=== PATIENT | male | born 1935 | race Caucasian/White ===

== ENCOUNTER 2023-03-24 10:14 | Outpatient (OUT) | payer MEDICARE, SELFPAY | END 2023-03-24 10:15 | LOC: CRPH3 10:14 → WC 10:24 | PROVIDERS: PCP Podiatrist Foot & Ankle Surgery; Visit Provider Podiatrist Foot & Ankle Surgery | DX: E11.621 Type 2 diabetes mellitus with foot ulcer (principal); L97.412 Non-pressure chronic ulcer of right heel and midfoot with fat layer exposed | CPT/HCPCS: 11042 ==

== ENCOUNTER 2023-04-21 10:15 | Outpatient (OUT) | payer MEDICARE, SELFPAY | END 2023-04-21 10:16 | disposition home or self-care (01) | LOC: WC 10:15 | PROVIDERS: PCP Podiatrist Foot & Ankle Surgery; Visit Provider Podiatrist Foot & Ankle Surgery | DX: E11.621 Type 2 diabetes mellitus with foot ulcer (principal); L97.412 Non-pressure chronic ulcer of right heel and midfoot with fat layer exposed | CPT/HCPCS: 11042 ==

== ENCOUNTER 2023-05-19 10:19 | Outpatient (OUT) | payer MEDICARE, SELFPAY | END 2023-05-19 10:20 | disposition home or self-care (01) | LOC: WC 10:19 | PROVIDERS: PCP Podiatrist Foot & Ankle Surgery; Visit Provider Podiatrist Foot & Ankle Surgery | DX: E11.621 Type 2 diabetes mellitus with foot ulcer (principal); L97.412 Non-pressure chronic ulcer of right heel and midfoot with fat layer exposed | CPT/HCPCS: 11042 ==

== ENCOUNTER 2023-06-23 10:18 | Outpatient (OUT) | payer MEDICARE, SELFPAY | END 2023-06-23 10:19 | disposition home or self-care (01) | LOC: WC 10:18 | PROVIDERS: PCP Podiatrist Foot & Ankle Surgery; Visit Provider Podiatrist Foot & Ankle Surgery | DX: E11.621 Type 2 diabetes mellitus with foot ulcer (principal); L97.412 Non-pressure chronic ulcer of right heel and midfoot with fat layer exposed | CPT/HCPCS: 11042 ==

== ENCOUNTER 2023-07-12 15:22 | Outpatient (OUT) | payer MEDICARE, SELFPAY | END 2023-07-12 15:23 | disposition home or self-care (01) | LOC: WC 15:23 | PROVIDERS: PCP Podiatrist Foot & Ankle Surgery; Visit Provider Podiatrist Foot & Ankle Surgery | DX: E11.621 Type 2 diabetes mellitus with foot ulcer (principal); L97.412 Non-pressure chronic ulcer of right heel and midfoot with fat layer exposed | CPT/HCPCS: 11042 ==

== ENCOUNTER 2023-08-11 10:54 | Outpatient (OUT) | payer MEDICARE, SELFPAY | END 2023-08-11 10:55 | disposition home or self-care (01) | LOC: WC 10:54 | PROVIDERS: PCP Podiatrist Foot & Ankle Surgery; Visit Provider Podiatrist Foot & Ankle Surgery | DX: E11.621 Type 2 diabetes mellitus with foot ulcer (principal); L97.412 Non-pressure chronic ulcer of right heel and midfoot with fat layer exposed | CPT/HCPCS: 11042; A6213 ==

== ENCOUNTER 2023-09-01 10:19 | Outpatient (OUT) | payer MEDICARE, SELFPAY | END 2023-09-01 10:20 | disposition home or self-care (01) | LOC: WC 10:20 | PROVIDERS: PCP Podiatrist Foot & Ankle Surgery; Visit Provider Podiatrist Foot & Ankle Surgery | DX: E11.621 Type 2 diabetes mellitus with foot ulcer (principal); L97.412 Non-pressure chronic ulcer of right heel and midfoot with fat layer exposed | CPT/HCPCS: 11042 ==

== ENCOUNTER 2023-09-22 10:17 | Outpatient (OUT) | payer MEDICARE, SELFPAY | END 2023-09-22 10:18 | disposition home or self-care (01) | LOC: WC 10:17 | PROVIDERS: PCP Podiatrist Foot & Ankle Surgery; Visit Provider Podiatrist Foot & Ankle Surgery | DX: E11.621 Type 2 diabetes mellitus with foot ulcer (principal); L97.412 Non-pressure chronic ulcer of right heel and midfoot with fat layer exposed | CPT/HCPCS: 11042; A6213 ==

== ENCOUNTER 2023-10-27 10:12 | Outpatient (OUT) | payer MEDICARE, SELFPAY ==
--- OUTSIDE RECORDS SUMMARY | 2023-10-27 10:16 | XMS_ITS | CCD ---
Author Name Unknown Address [address] [place] [address] Organization [facility] Care Team Providers Care Harness Cleaner Name Role Phone MD Blake Millard Attending Provider [phone] NO FAMILY, PHYSICIAN Primary Care Provider Unava ilable Blake Millard Unavailable Raven Cheng Unavailable CORDERO ., DR MARIXA Lewis Primary Care Unavailable HIGHLANDER, PETER D Attending Unavailable HIGHLANDER, PETER D Admitting Unavailable CORDERO ., DR MARIXA Lewis Primary Care Unavailable HIGHLANDER, PETER Elida Attending Unavailable HIGHLANDER, PETER D Admitting Unavailable SARAHER, DR DESMOND Zheng Consulting Unavailable CORDERO ., DR MARIXA Lewis Primary Care Unavailable HIGHLANDER, PETER D Attending Unavailable HIGHLANDER, PETER D Admitting Unavailable HIGHLANDER, PETER D Consulting Unavailable CORDERO ., DR MARIXA Lewis Primary Care Unavailable HIGHLANDER, PETER Elida Attending Unavailable HIGHLANDER, PETER D Admitting Unavailable CORDERO ., DR MARIXA Lewis Primary Care Unavailable HIGHLANDER, PETER D Attending Unavailable HIGHLANDER, PETER D Admitting Unavailable CORDERO ., DR MARIXA Lewis Primary Care Unavailable HIGHLANDERTEJAS Attending Unavailable HIGHLANDER, PETER D Admitting Unavailable WEST, DR MIRIAM Sinclair Consulting Unavailable CORDERO ., DR MARIXA Lewis Primary Care Unavailable HIGHLANDER, PETER D Attending Unavailable HIGHLANDER, PETER D Admitting Unavailable HIGHLANDER, PETER D Consulting Unavailable CORDERO ., DR MARIXA Lewis Primary Care Unavailable HIGHLANDER, PETER D Attending Unavailable HIGHLANDER, PETER D Admitting Unavailable CORDERO ., DR MARIXA Lewis Primary Care Unavailable HIGHLANDER, PETER D Attending Unavailable HIGHLANDER, PETER D Admitting Unavailable CORDERO ., DR MARIXA Lewis Primary Care Unavailable HIGHLANDER, PETER D Attending Unavailable HIGHLANDER, PETER D Admitting Unavailable CORDERO ., DR MARIXA Lewis Primary Care Unavailable RADHAANDER PETER Elida Attending Unavailable HIGHLANDER, PETER D Admitting Unavailable CORDERO ., DR MARIXA Lewis Primary Care Unavailable HIGHLANDER, PETER Elida Attending Unavailable TEJAS JOLLEY Admitting Unavailable CORDERO ., DR MARIXA Lewis Primary Care Unavailable TEJAS JOLLEY Attending Unavailable TEJAS JOLLEY Admitting Unavailable CORDERO ., DR MARIXA Lewis Primary Care Unavailable TEJAS JOLLEY Attending Unavailable TEJAS JOLLEY Admitting Unavailable CORDERO ., DR MARIXA Lewis Primary Care Unavailable TEJAS JOLLEY Attending Unavailable TEJAS JOLLEY Admitting Unavailable CORDERO ., DR MARIXA Lewis Primary Care Unavailable TEJAS JOLLEY Attending Unavailable TEJAS JOLLEY Admitting Unavailable Allergies Allergy Classification Reported Allergen(s) Allergy Type Date of Onset Reaction(s) Facility (1 source) Sulfamethoxazole / Trimethoprim Drug Allergy 2 [facility] Repository Medications Current Medications Medication Drug Class(es) Dates Sig (Normalized) Sig (Original) amLODIPine (4 sources) Dihydropyridine Calcium Channel Len amLODIPine Besylate Active Ascorbic Acid (4 sources) Vitamin C Vitamin C Active Aspirin (8 sources) Platelet Aggregation Inhibitor, Nonsteroidal Anti-inflammatory Drug Baby Aspirin Acti ve take 1 tablet by mouth once kay y Aspirin 325 mg 325 mg one tab orally daily Not-Taking atorvastatin 10 mg oral tablet (4 sources) HMG-CoA Reductase Inhibitor take 1 tablet by mouth every twenty-four hours Atorvastatin Calcium 10 MG 1 tablet Orally Once a day for 30 day(s) Active canagliflozin (4 sources) Sodium-Glucose Cotransporter 2 Inhibitor Invokana Active clopidogrel 75 mg oral tablet (4 sources) P2Y12 Platelet Inhibitor take 1 tablet by mouth every twenty-four hours Clopidogrel Bisulfate 75 MG 1 tablet Orally Once a day for 30 day(s) Active ferrous sulfate (4 sources) Ferrous Sulfate Active glyBURIDE (4 sources) Sulfonylurea glyBURIDE Active insulin detemir (4 sources) Insulin Analog Levemir Active Magnesium (4 sources) Magnesium Active Melatonin (4 sources) Melatonin Active Memantine (3 sources) T-gcrnlx-Q-aspartate Receptor Antagonist Memantine HCl ER Active Omeprazole (4 sources) Proton Pump Inhibitor Omeprazole Active POLYETHYLENE GLYCOL 3350 (4 sources) Osmotic Laxative MiraLax Active quinapril 10 mg oral tablet (4 sources) Angiotensin Converting Enzyme Inhibitor take 1 tablet by mouth every twenty-four hours Quinapril HCl 10 MG 1 tablet Orally Once a day for 30 day(s) Active take 1 tablet by baljinder th every twenty-four hours Quinapril HCl 20 MG 1 tablet Orally Once a day for 30 day(s) Active Sucralfate (4 sources) Aluminum Complex Sucralfate Acti ve Zinc (4 sources) Zinc Active Completed/Discontinued Medications Medication Drug Class(es) Dates Sig (Normalized) Sig (Original) Doxycycline (4 sources) Tetracycline-class Drug Doxycycl ine Not-Taking Doxycycline Acti ve Fish Oils (4 sources) take 1 capsule by mouth once daily Fish Oil 1000 MG 1 capsule Orally Once a day for 30 day(s) Not-Taking metFORMIN (4 sources) Biguanide metFORMIN HCl Not-Taking Robaxin-750 750 MG (4 sources) Start: 03-11-2016 take 1 tablet by mouth every four hours Robaxin-750 750 MG 1 tablet Orally every 4 hrs for 10 days February, Not-Taking SITagliptin (4 sources) Dipeptidyl Peptidase 4 Inhibitor Januvia Not-Taking Problems Active Problems Problem Classification Problem Date Documented Date Episodic/Chronic Chronic ulcer of skin (5 sources) 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; Translations: [Non-pressure chronic ulcer of right heel and midfoot limited to breakdown of skin] Onset: 2 Chronic Congestive heart failure; nonhypertensive (1 source) Heart failure, unspecified; Translations: [HEART FAILURE UNSPECIFIED] Onset: 3 Chronic Diabetes mellitus with complications (11 sources) Type 2 diabetes mellitus with foot ulcer; Translations: [Type 2 diabetes mellitus with hyperglycemia] Onset: 3 Chronic Disorders of lipid metabolism (1 source) Pure hypercholesterolemia, unspecified; Translations: [PURE HYPERCHOLESTEROLEMIA UNSPEC] Onset: 3 Chronic Hypertension with complications and secondary hypertension (1 source) Hypertensive heart disease with heart failure; Translations: [HTN HEART DISEASE W/HEART FAIL] Onset: 3 Chronic Late effects of cerebrovascular disease (1 source) Other sequelae following unspecified cerebrovascular disease; Translations: [OTH SEQUELAE UNS CEREBROVASCULAR DZ] Onset: 3 Chronic Other diseases of veins and lymphatics (2 sources) 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 Onset: 2 Resolved: 2 Chronic Other diseases of veins and lymphatics (1 source) 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; Translations: [CHRON VENOUS HTN W/ULCER RT LW EXT] Onset: 3 Chronic Other diseases of veins and lymphatics (2 sources) Venous insufficiency of leg; Translations: [Venous insufficiency (chronic) (peripheral)] Episodic Other diseases of veins and lymphatics (2 sources) Venous insufficiency (chronic) (peripheral) Onset: 2 Resolved: 2 Episodic Other skin disorders (1 source) Nail dystrophy; Translations: [NAIL DYSTROPHY] Onset: 3 Episodic Peripheral and visceral atherosclerosis (1 source) Peripheral vascular disease, unspecified; Translations: [PERIPHERAL VASCULAR DISEASE UNS] Onset: 3 Chronic Residual codes; unclassified (2 sources) Localized edema; Translations: [LOCALIZED EDEMA] Onset: 2 Resolved: 2 Episodic Skin and subcutaneous tissue infections (4 sources) Cellulitis and abscess of lower leg; Translations: [Abscess of leg] Episodic Past or Other Problems Problem Classification Problem Date Documented Da te Episodic/Chronic Other non-traumatic joint disorders (4 sources) Pain in right ankle and joints of right foot; Translations: [PAIN IN RIGHT ANKLE] Onset: 07-22-2022 Episodic Results Test Name Value Interpretation Reference Range Facil ity US venous duplex LE BIon US venous duplex LE [facility] [place] [address] [place] [address] Ultrasound Report Signed Patient: Monse Uribe MR#: [id number] 39 : 1935 Acct:[id number] Age/Sex: 86 / M ADM Date: 02/21/22 Loc: [facility] Room: Type: [facility] Attending Dr: Blake Millard MD Ordering Provider: Blake Millard MD Date of Service: 02/21/22 US/US venous duplex LE BI: VVS PAIN AND SWELLING Copies to: Blake Millard MD BILATERAL LOWER EXTREMITY VENOUS DUPLEX INDICATION: Symptomatic varicose veins with leg swelling and pain PROCEDURE: Color-flow duplex scanning is used to interrogate the deep venous system of the right and left lower extremities. The common femoral vein, femoral vein and popliteal vein show good compressibility with normal proximal and distal augmentation. The calf veins are compressible. US/US venous duplex LE BI IMPRESSION: NO EVIDENCE FOR DEEP VEIN THROMBOSIS OR PROXIMAL SUPERFICIAL THROMBOPHLEBITIS IN THE RIGHT OR LEFT LOWER EXTREMITY. Patient was not able to complete Valsalva maneuver. Therefore reflux could not be evaluated. Greater saphenous vein was patent bilaterally from the groin to the ankle. Impression dictated by: Tigre Dorsey MD02/23/2022 1:03 PM Dictation Location: [place] [address] Tech: Sophia Thomas Transcribed By: [facility] 02/23/22 1303 Dictated By: Tigre Dorsey MD 02/23/22 1302 Signed By: 02/23/22 1303 [facility] Vital Signs Date Time Vital Sign Value Performing Clinician Facility 05-23-2022 12:30-0400 Body height 187.96 cm Raven Orantesrenetta Other [facility] Other 05-23-2022 12:30-0400 Body mass index (BMI) [Ratio] 26.32 kg/m2 Raven Orantesrenetta Other [facility] Other 05-23-2022 12:30-0400 Body temperature 97 [degF] Raven Cheng Other [facility] Other 05-23-2022 12:30-0400 Body weight 92.99 kg Raven Cheng Other [facility] Other 05-23-2022 12:30-0400 Diastolic blood pressure 46 mm[Hg] Raven Orantesrenetta Other [facility] Other 05-23-2022 12:30-0400 SaO2% (BldA) [Mass fraction] 97 % Raven Orantesrenetta Other [facility] Other 05-23-2022 12:30-0400 Systolic blood pressure 110 mm[Hg] Raven Rutrenetta Other [facility] Other 02-21-2022 12:45-0400 Body height 187.96 cm Raven Cheng Other [facility] Other 02-21-2022 12:45-0400 Body temperature 97.2 [degF] Raven Cheng Other [facility] Other 02-21-2022 12:45-0400 Diastolic blood pressure 60 mm[Hg] Raven Cheng Other [facility] Other 02-21-2022 12:45-0400 SaO2% (BldA) [Mass fraction] 99 % Raven Cheng Other [facility] Other 02-21-2022 12:45-0400 Systolic blood pressure 138 mm[Hg] Raven Cheng Other [facility] Other 12-28-2021 11:45-0400 Body height 187.96 cm Blake Millard Other [facility] Other 12-28-2021 11:45-0400 Body mass index (BMI) [Ratio] 26.32 kg/m2 Blake Millard Other [facility] Other 12-28-2021 11:45-0400 Body temperature 96.6 [degF] Blake Millard Other [facility] Other 12-28-2021 11:45-0400 Body weight 92.99 kg Blake Millard Other [facility] Other 12-28-2021 11:45-0400 Diastolic blood pressure 70 mm[Hg] Blake Millard Other [facility] Other 12-28-2021 11:45-0400 SaO2% (BldA) [Mass fraction] 97 % Blake Millard Other [facility] Other 12-28-2021 11:45-0400 Systolic blood pressure 118 mm[Hg] Blake Millard Other [facility] Other Encounters Encounter Date Encounter Type Care Provider Facility Start: 02-24-2023 End: 02-25-[address] MARIXA CORDERO . Facility:[facility] Start: 02-03-2023 End: 02-04-[address] MARIXA CORDERO . Facility:[facility] Start: 12-30-2022 End: 12-31-[address] MARIXA CORDERO . Facility:[facility] Start: 12-09-2022 End: 12-10-[address] MARIXA CORDERO . Facility:[facility] Start: 11-18-2022 End: 11-19-[address] MARIXA CORDERO . Facility:[facility] Start: 10-25-2022 End: 10-26-[address] MARIXA CORDERO . Facility:[facility] Start: 10-03-2022 End: 10-04-[address] MARIXA CORDERO . Facility:[facility] Start: 09-16-2022 End: 09-17-[address] MARIXA CORDERO . Facility:[facility] Start: 08-19-2022 End: 08-20-[address] MARIXA CORDERO . Facility:[facility] Start: 07-22-2022 End: 07-23-[address] MIRIAM OTERO Facility:[facility] Start: 06-24-2022 End: 06-25-[address] MARIXA CORDERO . Facility:[facility] Start: 05-23-2022 End: 05-23-2022 ambulatory Raven Cheng Other [facility] Other Start: 05-23-2022 Office outpatient vi sit 25 minutes Raven Cheng [facility] Surgery Start: 05-12-2022 End: 05-13-[address] MARIXA CORDERO . Facility:[facility] Start: 04-22-2022 End: 04-23-[address] MARIXA CORDERO . Facility:[facility] Start: 04-01-2022 End: 04-02-[address] DESMOND BOSTON Facility:[facility] Start: 03-21-2022 End: 03-22-[address] MARIXA CORDERO . Facility:[facility] Start: 03-04-2022 End: 03-05-[address] MARIXA CORDERO . Facility:[facility] Start: 02-21-2022 End: 02-21-2022 ambulatory Raven Cheng Other [facility] Other Start: 02-21-2022 Follow-up encounter Raven Sands [facility] Start: 02-21-2022 End: 02-21-2022 Patient encounter procedure MD Blake Millard Work Phone: [facility] Start: 12-28-2021 End: 12-28-2021 ambulatory Blake Millard Other [facility] Other Start: 12-28-2021 Office outpatient ne w 45 minutes Blake Millard [facility] Vascular Surgery Plan of Treatment Date Care Activity Detail Author Start: 02-21-2022 Duplex scan of lower limb veins US venous duplex LE BI [facility] Payers Date Payer Category Payer Medicare [id number] 1957 Unknown [id number] 1935 Unknown [id number] 2.16.84 [id number] 1935 Unknown [id number] 2.16.84 0.1.358247.3.579.2.593 1935 Unknown [id number] 2.16.84 0.1.315909.3.579.2.593 1935 Unknown [id number] 2.16.84 0.1.563591.3.579.2.593 1935 Unknown [id number] 2.16.84 0.1.135351.3.579.2.593 1937 Unknown [id number] 2.16.84 0.1.416237.3.579.2.593 1935 Unknown [id number] 2.16.84 0.1.966433.3.579.2.593 1935 Unknown [id number] 2.16.84 0.1.583093.3.579.2.593 1935 Unknown [id number] 2.16.84 0.1.282420.3.579.2.593 1935 Unknown [id number] 2.16.84 0.1.814297.3.579.2.593 1935 Unknown [id number] 2.16.84 0.1.218716.3.579.2.593 1935 Unknown [id number] 2.16.84 0.1.580071.3.579.2.593 1935 Unknown [id number] 2.16.84 0.1.072671.3.579.2.593 1937 Unknown [id number] 2.16.84 0.1.872490.3.579.2.593 1935 Unknown [id number] 2.16.84 0.1.967505.3.579.2.593 1935 Unknown [id number] 2.16.84 0.1.215416.3.579.2.593 Self-pay Self Pay [id number] Social History Date Type Detail Facility Tobacco smoking status NHIS Unknown if ever smoked [facility] Other Start: 1935 Sex Assigned At Male F [facility] Sex Assigned At Sex Assigned At Bir th [facility] Other Clinical Note 07-22-2022 Note Date & Type Note Facility 07-22-2022 Note PROCEDURE: XR FOOT R T MIN 3 VIEWS COMPARISON: 04/01/2022 HISTORY: Pain FINDINGS: BONES:No acute fracture or dislocation. Moderate degenerative changes with pes planus. Moderate plantar enthesopathic spurring of the calcaneus. Mild permeative pattern of the bones suggests osteopenia SOFT TISSUES:Soft tissue injury dorsal hindfoot EFFUSION:None visible. OTHER: Negative. IMPRESSION: Soft tissue injury No plain film evidence of osteomyelitis Electronically authenticated by: MIRIAM OTERO Date: 2022-07-22 11:18 [facility] Evaluation note 05-23-2022 Note Date & Type Note Facility 05-23-2022 Evaluation note Encounter Date Diagnosis Assessment Notes May, Chronic venous insufficiency of lower extremity (ICD-10 - I87.2) May, Other Chronic venous insufficiency This patient does not have an indication for intervention at this time and is not a good surgical candidate in the absence of significant ulceration. His family is aware and they are also aware of conservative treatment measures including elevation, compression, and skin care. I will have him come back on an as-needed basis should he deteriorate in any way. [facility] Other Clinical Note 04-01-2022 Note Date & Type Note Facility 04-01-2022 Note PROCEDURE: XR FOOT R T MIN 3 VIEWS HISTORY: Pain in right foot ; first metatarsophalangeal joint plantar wound COMPARISON: XR foot right 03/01/2021 FINDINGS: BONES:Complete loss of the plantar arch. Mild degenerative changes the midfoot and ankle joint. No fracture or bone lesion. SOFT TISSUES:Mild distal dorsal soft tissue swelling. EFFUSION:None visible. OTHER: Negative. IMPRESSION: 1. Pes planus. 2. No appreciable acute bone abnormality or evidence of osteomyelitis. 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 Patient was unable to understand instructions for Valsalva therefore unfortunately we are unable to identify any areas of valvular incompetence. He does not currently have any open sores or ulcerations.. He has hemosiderin deposition in the gaiter distribution bilaterally and He does have some blister formation to the left daugherty region but currently no open areas. At this point in time, we will continue conservative therapy efforts with graded compression stockings, leg elevation, and good skin care moisturizer therapy. Family was given instructions and paperwork filled out for his skilled facility. He was given Rx for compression stockings. We will continue to follow him along and see him again in a couple of months to monitor progress. They know to call us in the meantime if any issues present or any wounds appear. They verbalized understanding, agrees this plan, deny any questions. 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 With good skin care, elevation, and compression he may do fairly well. I will bring him back for a full functional venous duplex examination to assess his current venous anatomy and whether or not there any areas of valvular incompetence that might be addressed to improve his legs particularly on the right where he had ulceration. We will see him back once that study is accomplished. [facility] Other Evaluation note Note Date & Type Note Facility Evaluation note No assessment information availa [facility] Work Phone: History general Narrative - Reported Note Date & Type Note Facility History general Narrative - Reported Type Medical History diabetes mallitus Medical History hyperlipidemia Medical History Hypertension Medical History History of deep vein thrombosis Surgical History skin graft Surgical History cholecystectomy Surgical History colonoscopy Surgical History hernia repair Surgical History cataract removal left Hospitalization History see above [facility] Other Chief Complaint and Reason for Visit Chief Complaint varicose vein w/ulce r Advance Directives No Advanced Directives Records Found Advance Directive Response Recorded Date/ Time Advance Directives No February 21, 2022 12:42pm Summary Purpose Family History No Family History Records FoundNo Family History Records Found Additional Source Comments Care Teams (unrecognized sec tion and content) Team Status: Inactive Member Role Status Dates Blake Millard MD Attending Provider Active PHYSICIAN NO FAMILY Primary Care Provider Active Team Status: Active Member Role Status Dates PHYSICIAN NO FAMILY Primary Care Provider Active Goals (unrecognized section and content) Goals may be documented in a n alternate sectionNo InformationNo InformationNo InformationNo Information (unrecognized sect ion and content) No Status Records FoundNo Status Records Found INFORMATION SOURCE (unrecogn ized section and content) DATE CREATED AUTHOR 03/11/2022 [facility] DATE CREATED AUTHOR AUTHOR'S ORGANIZ ATION 02/25/2023 [facility] REASON FOR VISIT (unrecogniz ed section and content) HOSP F/U, Swollen legsFOLLOW UP; BL FF VENOUS 10:303 MONTH FOLLOW UP, Venous insufficiency3 MONTH FOLLOW UP, Venous insufficiency FOR RECORDS PERTAINING TO PATIENTS WHO ARE OR HAVE BEEN ENROLLED IN A CHEMICAL DEPENDENCY/SUBSTANCEABUSE PROGRAM, SOME INFORMATION MAY BE OMITTED. This clinical summary was aggregated from multiple sources. Caution should be exercised in using it in the provision of clinical care. This summary normalizes information from multiple sources, and as a consequence, information in this document may materially change the coding, format and clinical context of patient data. In addition, data may be omitted in some cases. CLINICAL DECISIONS SHOULD BE BASED ON THE PRIMARY CLINICAL RECORDS. [employer] provides no warranty or guarantee of the accuracy or completeness of information in this document.
== END 2023-10-27 10:13 | disposition home or self-care (01) ==
LOC: WC 10:12
PROVIDERS: PCP Podiatrist Foot & Ankle Surgery; Visit Provider Podiatrist Foot & Ankle Surgery
DX: E11.621 Type 2 diabetes mellitus with foot ulcer (principal); L97.412 Non-pressure chronic ulcer of right heel and midfoot with fat layer exposed; E11.65 Type 2 diabetes mellitus with hyperglycemia; L60.3 Nail dystrophy; E11.21 Type 2 diabetes mellitus with diabetic nephropathy
CPT/HCPCS: 11042; 11721

== ENCOUNTER 2023-11-24 11:52 | Outpatient (OUT) | payer MEDICARE, SELFPAY | END 2023-11-24 11:53 | disposition home or self-care (01) | LOC: WC 11:52 | PROVIDERS: PCP Podiatrist Foot & Ankle Surgery; Visit Provider Podiatrist Foot & Ankle Surgery | DX: E11.621 Type 2 diabetes mellitus with foot ulcer (principal); L97.412 Non-pressure chronic ulcer of right heel and midfoot with fat layer exposed | CPT/HCPCS: 11042 ==

== ENCOUNTER 2023-12-08 09:34 | Outpatient (OUT) | payer MEDICARE, SELFPAY ==
--- OUTSIDE RECORDS SUMMARY | 2023-12-08 09:39 | XMS_ITS | CCD ---
Author Name Unknown Address [address] [place] [address] Organization [facility] Care Team Providers Care Automated Manufacturing Instructor Name Role Phone MD Blake Millard Attending Provider [phone] NO FAMILY, PHYSICIAN Primary Care Provider Unava ilable Blake Millard Unavailable Raven Cheng Unavailable CORDERO ., DR MARIXA Lewis Primary Care Unavailable SHOLA, TEJAS Marrero Attending Unavailable HIGHLANDER, PETER D Admitting Unavailable CORDERO ., DR MARIXA Lewis Primary Care Unavailable HIGHLANDER, TEJAS Marrero Attending Unavailable HIGHLANDER, PETER D Admitting Unavailable SARAHER, DR DESMOND Zheng Consulting Unavailable CORDERO ., DR MARIXA Lewis Primary Care Unavailable HIGHLANDER, PETER Elida Attending Unavailable HIGHLANDER, PETER D Admitting Unavailable HIGHLANDER, PETER Elida Consulting Unavailable CORDERO ., DR MARIXA Lewis [...] ., DR MARIXA Lewis Primary Care Unavailable RADHAANDER, PETER Elida Attending Unavailable HIGHLANDER, PETER D Admitting Unavailable CORDERO ., DR MARIXA Lewis Primary Care Unavailable HIGHLANDER, PETER Elida Attending Unavailable HIGHLANDER, PETER D Admitting Unavailable CORDERO ., DR MARIXA Lewis Primary Care Unavailable RADHAANDERTEJAS Attending Unavailable HIGHLANDER, PETER D Admitting Unavailable CORDERO ., DR MARIXA Lewis Primary Care Unavailable HIGHLANDER, TEJAS Marrero Attending Unavailable HIGHLANDER, PETER D Admitting Unavailable CORDERO ., DR MARIXA Lewis Primary Care Unavailable TEJAS JOLLEY Attending Unavailable TEJAS JOLLEY Admitting Unavailable CORDERO ., DR MARIXA Lewis Primary Care Unavailable TEJAS JOLLEY Attending Unavailable TEAJS JOLLEY Admitting Unavailable CORDERO ., DR MARIXA Lewis Primary Care Unavailable TEJAS JOLLEY Attending Unavailable TEJAS JOLLEY Admitting Unavailable CORDERO ., DR MARIXA Lewis Primary Care Unavailable TEJAS JOLLEY Attending Unavailable TEJAS JOLLEY Admitting Unavailable CORDERO ., DR MARIXA Lewis Primary Care Unavailable TEJAS JOLLEY Attending Unavailable TEJAS JOLLEY Admitting Unavailable Tosha Aguirre MD Unavailable Tosha Aguirre MD Primary Care Provider Courtney COPE, Rosina Unavailable Unavailable Dinora Sherwood Unavailable Unavailable Allergies Allergy Classification Reported Allergen(s) Allergy Type Date of Onset Reaction(s) Facility (1 source) Sulfamethoxazole / Trimethoprim Drug Allergy 2 [facility] Repository (2 sources) Sulfamethoxazole / Trimethoprim Drug Allergy 2 [facility] Medications Current Medications Medication Drug Class(es) Dates Sig (Normalized) Sig (Original) acetaminophen 500 mg oral tablet (2 sources) acetaminophen (Tylenol) 500 MG tablet every 8 (eight) hours 0 Active amLODIPine (4 sources) Dihydropyridine Calcium Channel Len amLODIPine Besylate Active ascorbic acid 250 mg oral tablet (6 sources) Vitamin C take 1 tablet by mouth twice daily ascorbic acid (Vitamin C) 250 MG tablet 1 tablet Orally Twice a day 0 Active Vitamin C Active aspirin 81 mg delayed release oral tablet (10 sources) Platelet Aggregation Inhibitor, Nonsteroidal Anti-inflammatory Drug take 1 tablet by mouth in the morning aspirin 81 MG EC tablet Take 1 tablet by mouth in the morning. 0 Active Baby Aspirin Act conrad take 1 tablet by mouth once kay y Aspirin 325 mg 325 mg one tab orally daily Not-Taking atorvastatin 10 mg oral tablet (6 sources) HMG-CoA Reductase Inhibitor atorvastatin (Lipitor) 10 MG tablet 1 (one) time each day at the same time 0 Active canagliflozin 100 mg oral tablet (6 sources) Sodium-Glucose Cotransporter 2 Inhibitor take 1 tablet by mouth in the morning Invokana 100 MG Take 1 tablet by mouth in the morning. 0 Active Invokana Active clopidogrel 75 mg oral tablet (6 sources) P2Y12 Platelet Inhibitor take 1 tablet by mouth in the morning clopidogrel (Plavix) 75 MG tablet Take 1 tablet by mouth in the morning. 0 Active collagenase 0.25 unt/mg topical ointment (2 sources) Collagen-specific Enzyme Start: 09-22-20 23 Santyl 250 UNIT/GM ointment Per wound clinic 0 09/22/2023 Active ferrous sulfate (4 sources) Ferrous Sulfate Active fluticasone propionate 0.05 mg/actuat metered dose nasal spray (2 sources) Corticosteroid Start: 01-15-20 23 fluticasone (Flonase) 50 MCG/ACT nasal spray furosemide 40 mg oral tablet (2 sources) Loop Diuretic take 1 tablet by mouth in the morning furosemide (Lasix) 40 MG tablet Take 1 tablet by mouth in the morning. 0 Active glyBURIDE (4 sources) Sulfonylurea glyBURIDE Active 3 ml insulin aspart, human 100 unt/ml pen injector (2 sources) Insulin Analog Start: 09-06-20 NovoLOG FLEXPEN 100 UNIT/ML pen SLIDING SCALE. 141-200 give 2 units. 201-250 give 4 units. 251-300 give 6 units. 301-350 give 8 units. 351-400 give 10 units. Greater than 400 give 12 units and call MD. 0 09/06/2023 Active 3 ml insulin detemir 100 unt/ml pen injector (6 sources) Insulin Analog Levemir FlexTouc h 100 UNIT/ML pen Inject 42 Units under the skin in the morning. 0 Active Levemir Active ammonium lactate 120 mg/ml topical lotion (2 sources) ammonium lactate (Lac-Hydrin) 12 % lotion 1 application every 12 (twelve) hours 0 Active Magnesium (4 sources) Magnesium Active magnesium hydroxide 80 mg/ml oral suspension (2 sources) magnesium hydrox ry (Milk of Magnesia) 400 MG/5ML suspension 5 ml at least 4 hours between doses as needed Orally Once a day 0 Active Melatonin (4 sources) Melatonin Active 24 hr memantine hydrochlorid e 28 mg extended release oral capsule (5 sources) I-hmruqp-N-aspartate Receptor Antagonist Memantine HCl ER 28 MG capsule sustained-release 24 hr 1 capsule at bedtime 0 Active Memantine HCl ER Active omeprazole 40 mg delayed release oral capsule (6 sources) Proton Pump Inhibitor take 1 capsule by mouth once daily omeprazole (PriLOSEC) [address] capsule Take 1 capsule every day by oral route for 30 days. 0 Active Omeprazole Activ e Pollen Extracts (PROSTAT PO) (2 sources) take 30 mL by mouth in the morning Pollen Extracts (PROSTAT PO) Take 30 mL by mouth in the morning and 30 mL before bedtime. 0 Active polyethylene glycol 3350 97766 mg powder for oral solution (6 sources) Osmotic Laxative polyethylene gl ycol, PEG, 3350 (MiraLax) 17 GM/SCOOP powder as directed Orally 0 Active MiraLax Active quinapril 10 mg oral tablet (4 sources) Angiotensin Converting Enzyme Inhibitor take 1 tablet by mouth every twenty-four hours Quinapril HCl 10 MG 1 tablet Orally Once a day for 30 day(s) Active take 1 tablet by baljinder th every twenty-four hours Quinapril HCl 20 MG 1 tablet Orally Once a day for 30 day(s) Active spironolactone 25 mg oral tablet (2 sources) Aldosterone Antagonist take 0.5 tablet by mouth once daily spironolactone (Aldactone) 25 MG tablet Take 0.5 tablets every day by oral route. 0 Active Sucralfate (4 sources) Aluminum Complex Sucralfate Acti ve triamcinolone acetonide 1 mg/ml topical cream (2 sources) Corticosteroid Start: 023 triamcinolone (Kenalog) 0.1 % cream vitamin b12 1 mg oral tablet (2 sources) Vitamin B12 take 1 tablet by mouth in the morning cyanocobalamin (Vitamin B-12) 1000 MCG tablet Take 1,000 mcg by mouth in the morning. 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; Translations: [Non-pressure chronic ulcer of right heel and midfoot limited to breakdown of skin] Onset: 12-09-2021 05-04-2023 Chronic Conduction disorders (2 sources) Second degree atrioventricular block; Translations: [Atrioventricular block, second degree] Onset: 05-04-2023 05-04-2023 Chronic Congestive heart failure; nonhypertensive (4 sources) Heart failure, unspecified; Translations: [Heart failure] Onset: 12-09-2021 11-08-2023 Chronic Delirium, dementia, and amnestic and other cognitive disorders (6 sources) Old-age; Translations: [Age-related physical debility] Onset: 12-09-2021 05-04-2023 Chronic Diabetes mellitus with complications (20 sources) Type 2 diabetes mellitus with foot ulcer; Translations: [Type 2 diabetes mellitus with hyperglycemia] Onset: 03-24-2022 Chronic Disorders of lipid metabolism (3 sources) Pure hypercholesterolemia, unspecified; Translations: [Hyperlipidemia] Onset: 12-09-2021 05-04-2023 Chronic Diverticulosis and diverticulitis (2 sources) Diverticula of intestine; Translations: [Diverticulosis of intestine, part unspecified, without perforation or abscess without bleeding] Onset: 12-09-2021 05-04-2023 Chronic Esophageal disorders (2 sources) Gastroesophageal reflux disease without esophagitis; Translations: [Gastro-esophageal reflux disease without esophagitis] Onset: 12-09-2021 05-04-2023 Chronic Essential hypertension (5 sources) Essential hypertension; Translations: [Essential (primary) hypertension] Onset: 12-09-2021 05-04-2023 Chronic Genitourinary symptoms and ill-defined conditions (3 sources) Urinary incontinence; Translations: [Unspecified urinary incontinence] Onset: 12-09-2021 05-04-2023 Chronic Hypertension with complications and secondary hypertension (1 source) Hypertensive heart disease with heart failure; Translations: [HTN HEART DISEASE W/HEART FAIL] Onset: 12-22-2022 Chronic Late effects of cerebrovascular disease (1 source) Other sequelae following unspecified cerebrovascular disease; Translations: [OTH SEQUELAE UNS CEREBROVASCULAR DZ] Onset: 12-22-2022 Chronic Malaise and fatigue (3 sources) Asthenia; Translations: [Weakness] Onset: 12-09-2021 11-08-2023 Episodic Miscellaneous mental health disorders (2 sources) Dream anxiety disorder; 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] Onset: 05-04-2023 05-04-2023 Chronic Mood disorders (3 sources) Mood disorder; Translations: [Unspecified mood [affective] disorder] Onset: 12-09-2021 05-04-2023 Chronic Nutritional deficiencies (2 sources) Deficiency of macronutrients; Translations: [Unspecified protein-calorie malnutrition] Onset: 12-09-2021 05-04-2023 Chronic Other aftercare (1 source) Long-term current use of anticoagulant; Translations: [intermediate (current) use of anticoagulants] 11-20-2023 Episodic Other diseases of veins and lymphatics (2 sources) 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 Onset: 12-28-2021 Resolved: 02-21-2022 Chronic Other diseases of veins and lymphatics (1 source) 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; Translations: [CHRON VENOUS HTN W/ULCER RT LW EXT] Onset: 12-22-2022 Chronic Other diseases of veins and lymphatics (2 sources) Venous insufficiency of leg; Translations: [Venous insufficiency (chronic) (peripheral)] Episodic Other diseases of veins and lymphatics (2 sources) Venous insufficiency (chronic) (peripheral) Onset: 05-23-2022 Resolved: 05-23-2022 Episodic Other nervous system disorders (2 sources) Cognitive deficit in communication skills; Translations: [Cognitive communication deficit] Onset: 12-09-2021 05-04-2023 Chronic Other nervous system disorders (2 sources) Neuropathy; Translations: [Polyneuropathy, unspecified] Onset: 05-04-2023 05-04-2023 Chronic Other nervous system disorders (2 sources) Polyneuropathy; Translations: [Polyneuropathy, unspecified] Onset: 05-04-2023 05-04-2023 Chronic Other nervous system disorders (3 sources) Abnormal gait; Translations: [Unspecified abnormalities of gait and mobility] Onset: 05-04-2023 05-04-2023 Episodic Other skin disorders (1 source) Nail dystrophy; Translations: [NAIL DYSTROPHY] Onset: 12-22-2022 Episodic Peripheral and visceral atherosclerosis (4 sources) Peripheral vascular disease, unspecified; Translations: [Peripheral vascular disease] Onset: 12-09-2021 11-08-2023 Chronic Residual codes; unclassified (2 sources) Localized edema; Translations: [LOCALIZED EDEMA] Onset: 02-21-2022 Resolved: 02-21-2022 Episodic Past or Other Problems Problem Classification Problem Date Documented Da te Episodic/Chronic Abdominal hernia (2 sources) Hernia of anterior abdominal wall; Translations: [Ventral hernia without obstruction or gangrene] Onset: 2 05-04-2023 Episodic Deficiency and other anemia (2 sources) Anemia; Translations: [Anemia, unspecified] Onset: 2 05-04-2023 Episodic Diabetes mellitus without complication (2 sources) Hyperglycemia; Translations: [Hyperglycemia, unspecified] Onset: 2 Resolved: 4 11-08-2023 Episodic E Codes: Fall (2 sources) Fall; Translations: [Unspecified fall, initial encounter] Onset: 2 Resolved: 3 05-04-2023 Episodic Fluid and electrolyte disorders (2 sources) Acidosis; Translations: [Acidosis] Onset: 2 Resolved: 4 11-08-2023 Episodic Gastrointestinal hemorrhage (2 sources) Gastrointestinal hemorrhage; Translations: [Gastrointestinal hemorrhage, unspecified] Onset: 2 11-17-2023 Episodic Genitourinary symptoms and ill-defined conditions (2 sources) Microscopic hematuria; Translations: [Other microscopic hematuria] Onset: 2 Resolved: 4 11-08-2023 Episodic Nausea and vomiting (2 sources) Nausea and vomiting; Translations: [Nausea with vomiting, unspecified] Onset: 2 Resolved: 4 11-08-2023 Episodic Nutritional deficiencies (2 sources) Vitamin deficiency; Translations: [Vitamin deficiency, unspecified] Onset: 2 05-04-2023 Episodic Open wounds of extremities (2 sources) Open wound of right lower leg; Translations: [Unspecified open wound, right lower leg, subsequent encounter] Onset: 2 11-08-2023 Episodic Other connective tissue disease (2 sources) Muscle weakness; Translations: [Muscle weakness (generalized)] Onset: 2 05-04-2023 Episodic Other diseases of kidney and ureters (2 sources) Disorder of kidney and/or ureter; Translations: [Disorder of kidney and ureter, unspecified] Onset: 2 11-17-2023 Episodic Other diseases of veins and lymphatics (2 sources) Peripheral venous insufficiency; Translations: [Venous insufficiency (chronic) (peripheral)] Onset: 2 05-04-2023 Episodic Other gastrointestinal disorders (2 sources) Constipation; Translations: [Constipation, unspecified] Onset: 3 05-04-2023 Episodic Other injuries and conditions due to external causes (2 sources) History of fall; Translations: [History of falling] Onset: 2 05-04-2023 Episodic Other nervous system disorders (2 sources) Finding related to ability to move; Translations: [Other abnormalities of gait and mobility] Onset: 2 11-17-2023 Episodic Other non-traumatic joint disorders (4 sources) Pain in right ankle and joints of right foot; Translations: [PAIN IN RIGHT ANKLE] Onset: 2 Episodic Other skin disorders (2 sources) Disorder of pigmentation; Translations: [Disorder of pigmentation, unspecified] Onset: 2 11-17-2023 Episodic Pancreatic disorders (not diabetes) (2 sources) 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; Translations: [Other specified diseases of pancreas] Onset: 2 05-04-2023 Episodic Residual codes; unclassified (2 sources) Restlessness and agitation; Translations: [Restlessness and agitation] Onset: 2 Resolved: 4 11-08-2023 Chronic Residual codes; unclassified (2 sources) Insomnia; Translations: [Insomnia, unspecified] Onset: 3 05-04-2023 Episodic Residual codes; unclassified (2 sources) Altered mental status; Translations: [Altered mental status, unspecified] Onset: 2 11-08-2023 Episodic Residual codes; unclassified (2 sources) Edema; Translations: [Edema, unspecified] Onset: 2 Resolved: 4 11-08-2023 Episodic Septicemia (except in labor) (2 sources) Sepsis; Translations: [Sepsis, unspecified organism] Onset: 2 Resolved: 4 11-08-2023 Episodic Skin and subcutaneous tissue infections (6 sources) Cellulitis and abscess of lower leg; Translations: [Abscess of leg] Onset: 2 Resolved: 3 05-04-2023 Episodic Spondylosis; intervertebral disc disorders; other back problems (2 sources) Spinal stenosis; Translations: [Spinal stenosis, site unspecified] Onset: 2 05-04-2023 Episodic Results Test Name Value Interpretation Reference Range Facil ity US venous duplex LE BIon US venous duplex LE [facility] [address] Ultrasound Report Signed Patient: Tayo Uribe MR#: [id number] 39 : 1935 Acct:[id number] Age/Sex: 86 / M ADM Date: 02/21/22 Loc: [facility] Room: Type: [facility] Attending Dr: Blake Millard MD Ordering Provider: [...] Tigre Dorsey MD02/23/2022 1:03 PM [facility] Tech: Sophia Thomas Transcribed By: [facility] 02/23/22 1303 Dictated By: Tigre Dorsey MD 02/23/22 1302 Signed By: 02/23/22 1303 [facility] Vital Signs Date Time Vital Sign Value Performing Clinician Facility 11-20-2023 09:40-0500 Body weight 97.43 kg Tosha Aguirre MD Work Phone: [facility] 11-20-2023 09:40-0500 Diastolic blood pressure 58 mm[Hg] Tosha Aguirre MD Work Phone: [facility] 11-20-2023 09:40-0500 Heart rate 60 /min Tohsa Aguirre MD Work Phone: [facility] 11-20-2023 09:40-0500 Systolic blood pressure 126 mm[Hg] Tosha Aguirre MD Work Phone: [facility] 05-23-2022 12:30-0400 Body height 187.96 cm Raven Cheng Other [facility] Other 05-23-2022 12:30-0400 Body mass index (BMI) [Ratio] 26.32 kg/m2 Raven Cheng Other [facility] Other 05-23-2022 12:30-0400 Body temperature 97 [degF] Raven Cheng Other [facility] Other 05-23-2022 12:30-0400 Body weight 92.99 kg Raven Cheng Other [facility] Other 05-23-2022 12:30-0400 Diastolic blood pressure 46 mm[Hg] Raven Oranteso Other [facility] Other 05-23-2022 12:30-0400 SaO2% (BldA) [Mass fraction] 97 % Raven Oranteso Other [facility] Other 05-23-2022 12:30-0400 Systolic blood pressure 110 mm[Hg] Raven Oranteso Other [facility] Other 02-21-2022 12:45-0400 Body height 187.96 cm Raven Oranteso Other [facility] Other 02-21-2022 12:45-0400 Body temperature 97.2 [degF] Raven Oranteso Other [facility] Other 02-21-2022 12:45-0400 Diastolic blood pressure 60 mm[Hg] Raven Oranteso Other [facility] Other 02-21-2022 12:45-0400 SaO2% (BldA) [Mass fraction] 99 % Raven Oranteso Other [facility] Other 02-21-2022 12:45-0400 Systolic blood pressure 138 mm[Hg] Raven Oranteso Other [facility] Other 12-28-2021 11:45-0400 Body height 187.96 cm Blake Millard Other [facility] Other 12-28-2021 11:45-0400 Body mass index (BMI) [Ratio] 26.32 kg/m2 Blake Millard Other [facility] Other 12-28-2021 11:45-0400 Body temperature 96.6 [degF] Blake Millard Other [facility] Other 12-28-2021 11:45-0400 Body weight 92.99 kg Blake Millard Other [facility] Other 12-28-2021 11:45-0400 Diastolic blood pressure 70 mm[Hg] Blake Millard Other [facility] Other 12-28-2021 11:45-0400 SaO2% (BldA) [Mass fraction] 97 % Blake Millard Other [facility] Other 12-28-2021 11:45-0400 Systolic blood pressure 118 mm[Hg] Blake Millard Other [facility] Other Encounters Encounter Date Encounter Type Care Provider Facility Start: 11-20-2023 [email or web address] ernst MD Work Phone: [facility] Start: 11-20-2023 Latiochrissie ernst MD Work Phone: [facility] Start: 11-20-2023 End: 11-20-2023 Office outpatient visit 25 minutes Tosha Aguirre MD Work Phone: [facility] Comment on above: Type 2 diabetes marbin itus with foot ulcer, with long-term current use of insulin ([facility]) (Primary Dx); Chronic atrial fibrillation, unspecified (I48.20); Unspecified mood [affective] disorder (F39); Other ventricular tachycardia (I47.29); 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 gangrene, with long-term current use of insulin ([facility]); Peripheral vascular disease, unspecified (I73.9); Dementia without behavioral disturbance, psychotic disturbance, mood disturbance, or anxiety, unspecified dementia severity, unspecified dementia type ([facility]); Non-pressure chronic ulcer of other part of right foot with fat layer exposed (L97.512); Heart failure, unspecified HF chronicity, unspecified heart failure type ([facility]); 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; intermediate current use of anticoagulant; Advanced age; Gait disturbance; Essential (primary) hypertension ([facility]); Urinary incontinence, unspecified type; Other cerebral infarction due to occlusion or stenosis of small artery ([facility]); DM type 2 with diabetic peripheral neuropathy ([facility]) Start: 02-24-2023 End: 02-25-[address] MARIXA [...] . Facility:[facility] Start: 05-23-2022 End: 05-23-2022 ambulatory Rvaen Cheng Other [facility] Other Start: 05-23-2022 Office outpatient vi sit 25 minutes Raven Cheng [facility] Start: 05-12-2022 End: 05-13-[address] MARIXA CORDERO . Facility:[facility] Start: 04-22-2022 End: 04-23-[address] MARIXA CORDERO . Facility:[facility] Start: 04-01-2022 End: 04-02-[address] DESMOND BOSTON Facility:[facility] Start: 03-21-2022 End: 03-22-[address] MARIXA CORDERO . Facility:[facility] Start: 03-04-2022 End: 03-05-[address] MARIXA CORDERO . Facility:[facility] Start: 02-21-2022 End: 02-21-2022 ambulatory Raven Cheng Other [facility] Other Start: 02-21-2022 Follow-up encounter [facility] Start: 02-21-2022 End: 02-21-2022 Patient encounter procedure MD Blake Millard Work Phone: [facility] Start: 12-28-2021 End: 12-28-2021 ambulatory Blake Millard Other [facility] Other Start: 12-28-2021 Office outpatient ne w 45 minutes Blake Millard [facility] Plan of Treatment Date Care Activity Detail Author Start: 02-19-2024 End: 02-19-2024 Patient encounter procedure 02/19/2024 10:30 AM EDT Office Visit [facility] [address] [place] [id number] Tosha Aguirre MD [address] [place] [address] [facility] Start: 01-17-2024 Hemoglobin A1c measurement Diabetes: Hemoglobin A1C [facility] Start: 11-20-2023 End: 11-20-2023 Patient encounter procedure 11/20/2023 9:30 AM EST Office Visit [facility] [address] [facility] [place] [address] Tosha Aguirre MD [address] [place] [address] 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 (Primary Dx); 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); Chronic atrial fibrillation, unspecified (I48.20); Atrial fibrillation, unspecified type (CMS/HCC); Unspecified mood [affective] disorder (F39); Other ventricular tachycardia (I47.29); 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 gangrene, with long-term current use of insulin (CMS/HCC); Peripheral vascular disease, unspecified (I73.9); Dementia without behavioral disturbance, psychotic disturbance, mood disturbance, or anxiety, unspecified dementia severity, unspecified dementia type (CMS/HCC); Type 2 diabetes mellitus with foot ulcer, with long-term current use of insulin (CMS/HCC); Non-pressure chronic ulcer of other part of right foot with fat layer exposed (L97.512); Heart failure, unspecified HF chronicity, unspecified heart failure type (CMS/HCC) [facility] Comment on above: 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 (P rimary Dx); 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); Chronic atrial fibrillation, unspecified (I48.20); Atrial fibrillation, unspecified type (CMS/HCC); Unspecified mood [affective] disorder (F39); Other ventricular tachycardia (I47.29); 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 gangrene, with long-term current use of insulin (CMS/HCC); Peripheral vascular disease, unspecified (I73.9); Dementia without behavioral disturbance, psychotic disturbance, mood disturbance, or anxiety, unspecified dementia severity, unspecified dementia type (CMS/HCC); Type 2 diabetes mellitus with foot ulcer, with long-term current use of insulin (CMS/HCC); Non-pressure chronic ulcer of other part of right foot with fat layer exposed (L97.512); Heart failure, unspecified HF chronicity, unspecified heart failure type (CMS/HCC) Start: 02-21-2022 Duplex scan of lower limb veins US venous duplex [facility] Start: 1945 Glaucoma screening Diabetes: R etinopathy Screening [facility] Start: 1935 Medicare Annual Well ness (AWV) Medicare Annual Wellness (AWV) [facility] Immunizations Immunization Date Immunization Notes Care Provider Fa rioty 09-05-2023 Pneumococcal Conjuga te PCV 20 Tosha Aguirre MD Work Phone: [facility] 07-21-2023 Influenza, High-dose Seasonal, Quadrivalent, Preservative Free Tosha Aguirre MD Work Phone: [facility] 08-02-2022 Influenza, High-dose Seasonal, Quadrivalent, Preservative Free Tosha Aguirre MD Work Phone: [facility] 11-22-2021 influenza, high dose seasonal, preservative-free Tosha Aguirre MD Work Phone: [facility] 09-11-2020 Influenza, High-dose Seasonal, Quadrivalent, Preservative Free Tosha Aguirre MD Work Phone: [facility] 09-05-2019 influenza, high dose seasonal, preservative-free Tosha Aguirre MD Work Phone: [facility] 09-12-2017 influenza, high dose seasonal, preservative-free Tosha Aguirre MD Work Phone: [facility] Payers Date Payer Category Payer Unknown AARP AARP [id number] 2022-Present [address] [place] [address] [id number] 2002 Medicare MEDICARE MEDICAR E PART B [id number] 2002-Present [address] [address] [place] [address] Medicare [id number] 1959 Medicare [id number] 1959 Unknown [id number] 1937 Unknown [id number] [id number] 1937 Unknown [id number] 2.16.840.1.212303.3.579.2.593 1937 Unknown [id number] 2.16.840.1.711075.3.579.2.593 1937 Unknown [id number] [id number] 1937 Unknown [id number] 2.16840.1.806113.3.579.2.593 1937 Unknown [id number] 2.840.1.095979.3.579.2.593 1937 Unknown [id number] 2.840.1.200576.3.579.2.593 1937 Unknown [id number] .840.1.279333.3.579.2.593 1937 Unknown [id number] 2.840.1.833353.3.579.2.593 1937 Unknown [id number] .840.1.147300.3.579.2.593 1937 Unknown [id number] 2.840.1.410725.3.579.2.593 1937 Unknown [id number] 2.840.1.680692.3.579.2.593 1937 Unknown [id number] 2.840.1.829610.3.579.2.593 1937 Unknown [id number] 2.16840.1.606198.3.579.2.593 1937 Unknown [id number] 2.16.840.1.838419.3.579.2.593 1937 Unknown [id number] 2.840.1.994374.3.579.2.593 Self-pay Self Pay [id number] Social History Date Type Detail Facility Tobacco smoking status NHIS Unknown if ever smoked [facility] Other Start: 1935 Sex Assigned At Male [facility] Start: 11-20-2023 Sex Assigned At [facility] Other Tobacco smoking status NHIS Tobacco smoking consumption unknown [facility] Start: 1935 Sex Assigned At Not on file [facility] Start: 11-20-2023 Tobacco smoking status NHIS Never smoked tobacco [facility] Start: 11-20-2023 Tobacco use and exposure Smokeless tobacco non-user [facility] Start: 11-20-2023 Alcohol intake Ex-drinker (finding) [facility] Start: 11-20-2023 History of Social function [facility] NEGATED: Highlighted rowStart: NINF History of tobacco use Passive smoker [facility] History of Present illness Narrative 11-20-2023 Tosha Aguirre MD - 11/20/2023 9:30 AM EST Note Date & Type Note Facility 11-20-2023 History of Presen t illness Narrative Images from the original note were not included. Tayo Uribe is a 88 y.o. male presents with chief complaint of follow up of medical issues. HPI: Pt is a resident of [facility]. He is currently seeing wound care. Pt is here with and daughter. PT denies pain. No chest pain. No dyspnea. No change in bowel or bladder. SUBJECTIVE: MEDICATIONS: Current Outpatient Medications Medication Instructions acetaminophen (Tylenol) 500 MG tablet Every 8 hours ammonium lactate (Lac-Hydrin) 12 % lotion 1 application , Every 12 hours ascorbic acid (Vitamin C) 250 MG tablet 1 tablet Orally Twice a day aspirin 81 MG EC tablet 1 tablet, Oral, Daily atorvastatin (Lipitor) 10 MG tablet Every 24 hours clopidogrel (Plavix) 75 MG tablet 1 tablet, Oral, Daily cyanocobalamin (VITAMIN B-12) 1,000 mcg, Oral, Daily fluticasone (Flonase) 50 MCG/ACT nasal spray furosemide (Lasix) 40 MG tablet 1 tablet, Oral, Daily Invokana 100 MG 1 tablet, Oral, Daily Levemir FlexTouch 42 Units, Subcutaneous, Daily magnesium hydroxide (Milk of Magnesia) 400 MG/5ML suspension 5 ml at least 4 hours between doses as needed Orally Once a day Memantine HCl ER 28 MG capsule sustained-release 24 hr 1 capsule, Nightly NovoLOG FLEXPEN 100 UNIT/ML pen SLIDING SCALE. 141-200 give 2 units. 201-250 give 4 units. 251-300 give 6 units. 301-350 give 8 units. 351-400 give 10 units. Greater than 400 give 12 units and call MD. omeprazole (PriLOSEC) [address] capsule Take 1 capsule every day by oral route for 30 days. Pollen Extracts (PROSTAT PO) 30 mL, Oral, 2 times daily polyethylene glycol, PEG, 3350 (MiraLax) 17 GM/SCOOP powder as directed Orally Santyl 250 UNIT/GM ointment Per wound clinic spironolactone (Aldactone) 25 MG tablet Take 0.5 tablets every day by oral route. triamcinolone (Kenalog) 0.1 % cream ALLERGIES: Allergies Allergen Reactions Sulfamethoxazole-Trimethoprim Rash REVIEW OF SYMPTOMS: Review of Systems Constitutional: Negative for chills and fever. HENT: Negative for congestion and sore throat. Wears glasses Respiratory: Negative for cough and shortness of breath. Cardiovascular: Negative for chest pain, palpitations and leg swelling (has improved). Gastrointestinal: Negative for abdominal pain, constipation, diarrhea, nausea and vomiting. Genitourinary: Negative for difficulty urinating. Incontinence of urine Neurological: Negative for headaches. Numbness: lower leg neuropathy. Psychiatric/Behavioral: Positive for confusion (decreased short term memory. Knows his family). OBJECTIVE: Predictive Model Details Model is not released. No score information can be retrieved 01/20/2022 12:00 PM 04/14/2022 12:00 PM 08/11/2022 12:00 PM 12/08/2022 12:00 PM 02/28/2023 12:00 PM 05/04/2023 11:01 AM 11/20/2023 9:40 AM Vitals Systolic 154 122 111 110 116 119 126 Diastolic 76 63 68 56 68 62 58 Heart Rate 62 60 Temp 97.8 F Resp 18 Weight (lb) 206.8 206.9 214.8 Visit Report Report Physical Exam Vitals and nursing note reviewed. Constitutional: General: He is not in acute distress. Appearance: He is not ill-appearing, toxic-appearing or diaphoretic. HENT: Head: Normocephalic and atraumatic. Nose: Nose normal. Mouth/Throat: Mouth: Mucous membranes are moist. Eyes: Conjunctiva/sclera: Conjunctivae normal. Neck: Vascular: No carotid bruit. Cardiovascular: Rate and Rhythm: Normal rate and regular rhythm. Heart sounds: No murmur heard. Pulmonary: Effort: Pulmonary effort is normal. No respiratory distress. Breath sounds: Normal breath sounds. No wheezing, rhonchi or rales. Abdominal: General: Bowel sounds are normal. There is no distension. Palpations: Abdomen is soft. Tenderness: There is no abdominal tenderness. There is no guarding. Musculoskeletal: General: Swelling (scant edema rt foot, has surgical show rt foot) present. Skin: General: Skin is warm and dry. Comments: Pt has status dermatitis bilat lower legs and dry skin Neurological: Mental Status: He is alert. Mental status is at baseline. Comments: Oriented to person, decreased short term memory, answers most of his questions Psychiatric: Comments: cooperative in the office ASSESSMENT AND PLAN: Assessment/Plan Diagnosis Plan 1. Type 2 diabetes mellitus with foot ulcer, with long-term current use of insulin ([facility]) sees wound care 2. Chronic atrial fibrillation, unspecified (I48.20) heart rate is controlled. Pt is no seeing cardiology, they dismissed him due to other comorbidities, emphasis on comfort 3. Unspecified mood [affective] disorder (F39) 4. Other ventricular tachycardia (I47.29) denies palpitations 5. 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 gangrene, with long-term current use of insulin ([facility]) eye exam 6. Peripheral vascular disease, unspecified (I73.9) sees wound care 7. Dementia without behavioral disturbance, psychotic disturbance, mood disturbance, or anxiety, unspecified dementia severity, unspecified dementia type ([facility]) 8. Non-pressure chronic ulcer of other part of right foot with fat layer exposed (L97.512) 9. Heart failure, unspecified HF chronicity, unspecified heart failure type ([facility]) no sign of CHF at this time, stable 10. 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 Advanced age emphasis on comfort, Resides at [place] 13. Gait disturbance walking with a cane 14. Essential (primary) hypertension (CMS/HCC) 15. Urinary incontinence, unspecified type 16. 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 DM type 2 with diabetic peripheral neuropathy ([facility]/HCC) I will follow up on his DNR paperwork. Encouraged eye exam Hgba1c is 7.0 was 6.8 Pt wants to be kept comfortable at [facility] and no hospitalization per and daughter. His answers most of his questions. They have been 65 yrs this week. Follow up in 3 months with his . Spent over 30 min problem focused care with over 50% in counseling documented in this encounter [facility] Clinical Note 07-22-2022 Note Date & Type [...] by: MIRIAM OTERO Date: 2022-07-22 11:18 [facility] Evaluation note 05-23-2022 Note Date & [...] basis should he deteriorate in any way. [facility] Other Clinical Note 04-01-2022 Note Date & [...] authenticated by: DESMOND BOSTON Date: 2022-04-01 18:12 [facility] Evaluation note 02-21-2022 Note Date & Type [...] understanding, agrees this plan, deny any questions. [facility] Other Evaluation note 12-28-2021 Note Date & [...] him back once that study is accomplished. [facility] Other Evaluation note Note Date & Type Note Facility Evaluation note No assessment information availa [facility] Work Phone: Evaluation note Note Date & Type Note Facility Evaluation note Diagnosis Type 2 diabetes mellitus with foot ulcer, with long-term current use of insulin (CMS/HCC)- Primary Chronic atrial fibrillation, unspecified (I48.20) Unspecified mood [affective] disorder (F39) Other ventricular tachycardia (I47.29) 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 gangrene, with long-term current use of insulin (CMS/HCC) Peripheral vascular disease, unspecified (I73.9) Peripheral vascular disease, unspecified Dementia without behavioral disturbance, psychotic disturbance, mood disturbance, or anxiety, unspecified dementia severity, unspecified dementia type (CMS/HCC) Non-pressure chronic ulcer of other part of right foot with fat layer exposed (L97.512) Heart failure, unspecified HF chronicity, unspecified heart failure type (CMS/HCC) 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 intermediate current use of anticoagulant Advanced age Gait disturbance Abnormality of gait Essential (primary) hypertension (CMS/HCC) Unspecified essential hypertension Urinary incontinence, unspecified type Other cerebral infarction due to occlusion or stenosis of small artery (CMS/HCC) DM type 2 with diabetic peripheral neuropathy (CMS/HCC) documented in this encounter [facility] History general Narrative - Reported Note Date & Type Note Facility History general Narrative - Reported Type Medical History diabetes mallitus Medical History hyperlipidemia Medical History Hypertension Medical History History of deep vein thrombosis Surgical History skin graft Surgical History cholecystectomy Surgical History colonoscopy Surgical History hernia repair Surgical History cataract removal left Hospitalization History see above [facility] Other Chief Complaint and Reason for Visit Chief Complaint varicose vein w/ulce r Advance Directives Advance Directive Response Recorded Date/ Time Advance [...] PHYSICIAN NO FAMILY Primary Care Provider Active 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 [address] Registered Nurse Family Medicine 10/31/23 Dinora Stroud [facility] 11/17/23 Automated Manufacturing Instructor Relationship Specialty Start Date End Date Tosha Aguirre MD [address] [facility], [place] [address] PCP - ACO Reach 03/09/23 Tosha Aguirre MD [address] [facility], [place] [address] PCP - General Family Medicine 02/21/23 Rosina Valdez RN [address] [facility], [place] [address] Registered Nurse Family Medicine 10/31/23 Dinora Stroud [facility] 11/17/23 Goals (unrecognized section and content) Goals may be documented in a n alternate sectionNo InformationNo InformationNo InformationNo Information (unrecognized sect ion and content) No Status Records FoundNo Status Records Found INFORMATION SOURCE (unrecogn ized section and content) DATE CREATED AUTHOR 03/11/2022 [facility] DATE CREATED AUTHOR AUTHOR'S ORGANIZ ATION 02/25/2023 [facility] REASON FOR VISIT (unrecogniz ed section and content) Reason Comments New Patient FOR RECORDS PERTAINING TO PATIENTS WHO ARE [...] BE BASED ON THE PRIMARY CLINICAL RECORDS. [facility]. provides no warranty or guarantee of the accuracy or completeness of information in this document.
== END 2023-12-08 09:35 | disposition home or self-care (01) ==
LOC: WC 09:34
PROVIDERS: PCP Podiatrist Foot & Ankle Surgery; Visit Provider Podiatrist Foot & Ankle Surgery
DX: E11.621 Type 2 diabetes mellitus with foot ulcer (principal); L97.412 Non-pressure chronic ulcer of right heel and midfoot with fat layer exposed
CPT/HCPCS: 11042

== ENCOUNTER 2023-12-22 10:34 | Outpatient (OUT) | payer MEDICARE, SELFPAY ==
--- OUTSIDE RECORDS SUMMARY | 2023-12-22 10:43 | XMS_ITS | CCD ---
Author Name Unknown Address [address] [place] [address] Organization [facility] Care Team Providers Care Garageman Name Role Phone MD Blake Millard Attending Provider NO FAMILY, PHYSICIAN Primary Care Provider Unava ilable Blake Millard Unavailable Raven Cheng Unavailable CORDERO ., DR MARIXA Lewis Primary Care Unavailable SHOLA, TEAJS Marrero Attending Unavailable HIGHLANDER, PETER D Admitting [...] source) Sulfamethoxazole / Trimethoprim Drug Allergy 2 [facility] Repository (2 sources) Sulfamethoxazole / Trimethoprim Drug Allergy 2 [facility] Medications Current Medications Medication Drug Class(es) Dates [...] mg extended release oral capsule (5 sources) J-rgrthc-N-aspartate Receptor Antagonist Memantine HCl ER 28 MG [...] before bedtime. 0 Active polyethylene glycol 3350 64805 mg powder for oral solution (6 sources) [...] source) Long-term current use of anticoagulant; Translations: [nursing home (current) use of anticoagulants] 11-20-2023 Episodic Other [...] duplex LE BIon US venous duplex LE [facility] [place] [address] Ultrasound Report Signed Patient: Tayo Uribe MR#: [id number] : 1935 Acct:[id number] Age/Sex: 86 / M ADM Date: 02/21/22 Loc: [facility] Room: Type: [facility] Attending Dr: Blake Millard MD Ordering Provider: [...] Tigre Dorsey MD02/23/2022 1:03 PM [facility] Tech: Sophia Thomas Transcribed By: [facility] 02/23/22 1303 Dictated By: Tigre Dorsey MD 02/23/22 1302 Signed By: 02/23/22 1303 [facility] Vital Signs Date Time Vital Sign Value Performing Clinician Facility 11-20-2023 09:40-0500 Body weight 97.43 kg Tosha Aguirre MD Work Phone: [facility] 11-20-2023 09:40-0500 Diastolic blood pressure 58 mm[Hg] Tosha Aguirre MD Work Phone: [facility] 11-20-2023 09:40-0500 Heart rate 60 /min Tosha Aguirre MD Work Phone: [facility] 11-20-2023 09:40-0500 Systolic blood pressure 126 mm[Hg] Tosha Aguirre MD Work Phone: [facility] 05-23-2022 12:30-0400 Body height 187.96 cm Raven Cheng Other [facility] Other 05-23-2022 12:30-0400 Body mass index (BMI) [Ratio] 26.32 kg/m2 Raven Cheng Other [facility] Other 05-23-2022 12:30-0400 Body temperature 97 [degF] Raven Cheng Other [facility] Other 05-23-2022 12:30-0400 Body weight 92.99 kg Raven Cheng Other [facility] Other 05-23-2022 12:30-0400 Diastolic blood pressure 46 mm[Hg] Raven Oranteso Other [facility] Other 05-23-2022 12:30-0400 SaO2% (BldA) [Mass fraction] 97 % Raven Oranteso Other [facility] Other 05-23-2022 12:30-0400 Systolic blood pressure 110 mm[Hg] Raven Oranteso Other [facility] Other 02-21-2022 12:45-0400 Body height 187.96 cm Raven Oranteso Other [facility] Other 02-21-2022 12:45-0400 Body temperature 97.2 [degF] Raven Oranteso Other [facility] Other 02-21-2022 12:45-0400 Diastolic blood pressure 60 mm[Hg] Raven Oranteso Other [facility] Other 02-21-2022 12:45-0400 SaO2% (BldA) [Mass fraction] 99 % Raven Oranteso Other [facility] Other 02-21-2022 12:45-0400 Systolic blood pressure 138 mm[Hg] Raven Oranteso Other [facility] Other 12-28-2021 11:45-0400 Body height 187.96 cm Blake Millard Other [facility] Other 12-28-2021 11:45-0400 Body mass index (BMI) [Ratio] 26.32 kg/m2 Blake Millard Other [facility] Other 12-28-2021 11:45-0400 Body temperature 96.6 [degF] Blake Millard Other [facility] Other 12-28-2021 11:45-0400 Body weight 92.99 kg Blake Millard Other [facility] Other 12-28-2021 11:45-0400 Diastolic blood pressure 70 mm[Hg] Blake Millard Other [facility] Other 12-28-2021 11:45-0400 SaO2% (BldA) [Mass fraction] 97 % Blake Millard Other [facility] Other 12-28-2021 11:45-0400 Systolic blood pressure 118 mm[Hg] Blake Millard Other [facility] Other Encounters Encounter Date Encounter Type Care Provider Facility Start: 11-20-2023 MckinleyNVMdurancechrissie ernst MD Work Phone: [facility] Start: 11-20-2023 Language123chrissie ernst MD Work Phone: [facility] Start: 11-20-2023 End: 11-20-2023 Office outpatient visit 25 minutes Tosha Aguirre MD Work Phone: [facility] Comment on above: Type 2 diabetes marbin itus with foot ulcer, with long-term current use of insulin ([facility]) (Primary Dx); Chronic atrial fibrillation, unspecified (I48.20); Unspecified mood [affective] disorder (F39); Other ventricular tachycardia (I47.29); 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 gangrene, with long-term current use of insulin ([facility]); Peripheral vascular disease, unspecified (I73.9); Dementia without behavioral disturbance, psychotic disturbance, mood disturbance, or anxiety, unspecified dementia severity, unspecified dementia type ([facility]); Non-pressure chronic ulcer of other part of right foot with fat layer exposed (L97.512); Heart failure, unspecified HF chronicity, unspecified heart failure type ([facility]); 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; nursing home current use of anticoagulant; Advanced age; Gait disturbance; Essential (primary) hypertension ([facility]); Urinary incontinence, unspecified type; Other cerebral infarction due to occlusion or stenosis of small artery ([facility]); DM type 2 with diabetic peripheral neuropathy ([facility]) Start: 02-24-2023 End: 02-25-[address] MARIXA [...] 05-23-2022 End: 05-23-2022 ambulatory Raven Cheng Other [facility] Other Start: 05-23-2022 Office outpatient vi sit [...] 02-21-2022 End: 02-21-2022 ambulatory Raven Cheng Other [facility] [employer] Other Start: 02-21-2022 Follow-up encounter [facility] Start: 02-21-2022 End: 02-21-2022 Patient encounter procedure MD Blake Millard Work Phone: [facility] Start: 12-28-2021 End: 12-28-2021 ambulatory Blake Millard Other [facility] [employer] Other Start: 12-28-2021 Office outpatient ne w 45 minutes Blake Millard [facility] Surgery Plan of Treatment Date Care Activity Detail Author Start: 02-19-2024 End: 02-19-2024 Patient encounter procedure 02/19/2024 10:30 AM EDT Office [facility] [address] [place] [id number] Tosha Aguirre MD [address] [place] [address] [facility] Start: 01-17-2024 Hemoglobin A1c measurement Diabetes: Hemoglobin A1C [facility] Start: 11-20-2023 End: 11-20-2023 Patient encounter procedure 11/20/2023 9:30 AM EST Office Visit [facility] [address] [place] [address] Tosha Aguirre MD [address] [place] [address] 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 (Primary Dx); 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); [...] HF chronicity, unspecified heart failure type (CMS/HCC) [facility] Comment on above: 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 [...] of lower limb veins US venous duplex [facility] Start: 1945 Glaucoma screening Diabetes: R etinopathy Screening [facility] Start: 1935 Medicare Annual Well ness (AWV) Medicare Annual Wellness (AWV) [facility] Immunizations Immunization Date Immunization Notes Care Provider Fa rioty 09-05-2023 Pneumococcal Conjuga te PCV 20 Tosha Aguirre MD Work Phone: [facility] 07-21-2023 Influenza, High-dose Seasonal, Quadrivalent, Preservative Free Tosha Aguirre MD Work Phone: [facility] 08-02-2022 Influenza, High-dose Seasonal, Quadrivalent, Preservative Free Tosha Aguirre MD Work Phone: [facility] 11-22-2021 influenza, high dose seasonal, preservative-free Tosha Aguirre MD Work Phone: [facility] 09-11-2020 Influenza, High-dose Seasonal, Quadrivalent, Preservative Free Tosha Aguirre MD Work Phone: [facility] 09-05-2019 influenza, high dose seasonal, preservative-free Tosha Aguirre MD Work Phone: [facility] 09-12-2017 influenza, high dose seasonal, preservative-free Tosha Aguirre MD Work Phone: [facility] Payers Date Payer Category Payer Unknown AARP AARP [id number] 2022-Present [address] [place] [address] [id number] 2002 Medicare MEDICARE MEDICAR E PART B [id number] 2002-Present [address] [address] [place] [address] Medicare [id number] 1959 Medicare [id number] 1959 Unknown [id number] 1935 Unknown [id number] [id number] 1937 Unknown [id number] 2.16.840.1.234535.3.579.2.593 1937 Unknown [id number] 2.16.840.1.692713.3.579.2.593 1937 Unknown [id number] 2.16840.1.017274.3.579.2.593 1937 Unknown [id number] 2.16840.1.888142.3.579.2.593 1937 Unknown [id number] 2.840.1.320322.3.579.2.593 1937 Unknown [id number] 2.840.1.451637.3.579.2.593 1937 Unknown [id number] .840.1.414760.3.579.2.593 1937 Unknown [id number] 2.840.1.974141.3.579.2.593 1937 Unknown [id number] .840.1.024624.3.579.2.593 1937 Unknown [id number] 2.840.1.389203.3.579.2.593 1937 Unknown [id number] 2.840.1.263415.3.579.2.593 1937 Unknown [id number] 2.840.1.158453.3.579.2.593 1937 Unknown [id number] 2.16840.1.812334.3.579.2.593 1937 Unknown [id number] 2.16.840.1.863453.3.579.2.593 1937 Unknown [id number] 2.840.1.611479.3.579.2.593 Self-pay Self Pay [id number] Social History Date Type Detail Facility Tobacco smoking status NHIS Unknown if ever smoked [facility] [employer] Other Start: 1935 Sex Assigned At Male [facility] Start: 11-20-2023 Sex Assigned At [facility] [employer] Other Tobacco smoking status NHIS Tobacco smoking [...] issues. HPI: Pt is a resident of [facility]. He is currently seeing wound care. [...] ulcer, with long-term current use of insulin ([facility]) sees wound care 2. Chronic atrial fibrillation, unspecified (I48.20) heart rate is controlled. Pt is no seeing cardiology, they dismissed him due to other comorbidities, emphasis on comfort 3. Unspecified mood [affective] disorder (F39) 4. Other ventricular tachycardia (I47.29) denies palpitations 5. 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 gangrene, with long-term current use of insulin ([facility]) eye exam 6. Peripheral vascular disease, unspecified (I73.9) sees wound care 7. Dementia without behavioral disturbance, psychotic disturbance, mood disturbance, or anxiety, unspecified dementia severity, unspecified dementia type ([facility]) 8. Non-pressure chronic ulcer of other part of right foot with fat layer exposed (L97.512) 9. Heart failure, unspecified HF chronicity, unspecified heart failure type ([facility]) no sign of CHF at this time, stable 10. 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 Advanced age emphasis on comfort, Resides at [place] 13. Gait disturbance walking with a cane 14. Essential (primary) hypertension (CMS/HCC) 15. Urinary incontinence, unspecified type 16. 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 DM type 2 with diabetic peripheral neuropathy ([facility]/HCC) I will follow up on his DNR paperwork. Encouraged eye exam Hgba1c is 7.0 was 6.8 Pt wants to be kept comfortable at [place] and no hospitalization per and daughter. His answers most of his questions. They have been 65 yrs this week. Follow up in 3 months with his . Spent over 30 min problem focused care with over 50% in counseling documented in this encounter [facility] Clinical Note 07-22-2022 Note Date & Type [...] by: MIRIAM OTERO Date: 2022-07-22 11:18 [facility] Evaluation note 05-23-2022 Note Date & [...] basis should he deteriorate in any way. [facility] Other Clinical Note 04-01-2022 Note Date & [...] authenticated by: DESMOND BOSTON Date: 2022-04-01 18:12 [facility] Evaluation note 02-21-2022 Note Date & Type [...] understanding, agrees this plan, deny any questions. [facility] Other Evaluation note 12-28-2021 Note Date & [...] him back once that study is accomplished. [facility] Other Evaluation note Note Date & Type Note Facility Evaluation note No assessment information availa [facility] Work Phone: Evaluation note Note Date & [...] unspecified heart failure type (CMS/HCC) 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 nursing home current use of anticoagulant Advanced age Gait [...] cataract removal left Hospitalization History see above [facility] Other Chief Complaint and Reason for Visit [...] PHYSICIAN NO FAMILY Primary Care Provider Active Garageman Relationship Specialty Start Date End Date Tosha Aguirre MD [address] [place] [address] PCP - ACO Reach 03/09/23 Tosha Aguirre MD [address] [place] [address] PCP - General Family Medicine 02/21/23 Rosina Valdez, RN [address] [place] [address] Registered Nurse Family Medicine 10/31/23 Dinora Stroud [facility] Tobacco Feeder Catcher Family Medicine 11/17/23 Garageman Relationship Specialty Start Date End Date Tosha Aguirre MD [address] [address] PCP - ACO Reach 03/09/23 Tosha Aguirre MD [address] [place] [address] PCP - General Family Medicine 02/21/23 Rosina Valdez RN [address] [facility] [place] [address] Registered Nurse Family Medicine 10/31/23 Dinora Stroud [facility] Tobacco Feeder Catcher [facility] Medicine 11/17/23 Goals (unrecognized section and content) Goals may be documented in a n alternate sectionNo InformationNo InformationNo InformationNo Information (unrecognized sect ion and content) No Status Records FoundNo Status Records Found INFORMATION SOURCE (unrecogn ized section and content) DATE CREATED AUTHOR 03/11/2022 [facility] DATE CREATED AUTHOR AUTHOR'S ORGANIZ ATION [...] BE BASED ON THE PRIMARY CLINICAL RECORDS. [facility] provides no warranty or guarantee of the accuracy or completeness of information in this document.
== END 2023-12-22 10:35 | disposition home or self-care (01) ==
LOC: WC 10:34
PROVIDERS: PCP Podiatrist Foot & Ankle Surgery; Visit Provider Podiatrist Foot & Ankle Surgery
DX: E11.621 Type 2 diabetes mellitus with foot ulcer (principal); L97.412 Non-pressure chronic ulcer of right heel and midfoot with fat layer exposed
CPT/HCPCS: 11042

== ENCOUNTER 2024-01-05 11:40 | Outpatient (OUT) | payer MEDICARE, SELFPAY ==
--- OUTSIDE RECORDS SUMMARY | 2024-01-05 11:45 | XMS_ITS | CCD ---
Author Organization [facility] Care Team Providers Care Psychologist Research Assistant Name Role Phone MD Blake Millard Attending Provider NO FAMILY, PHYSICIAN Primary Care Provider Unava ilable Blake Millard Unavailable Raven Cheng Unavailable CORDERO ., DR MARIXA Lewis Primary Care Unavailable HIGHLANDER, PETER D Attending Unavailable HIGHLANDER, PETER D Admitting Unavailable CORDERO ., DR MARIXA Lewis Primary Care Unavailable HIGHLANDER, PETER Elida Attending Unavailable HIGHLANDER, PETER D Admitting Unavailable LUDY, DR DESMOND Zheng Consulting Unavailable CORDERO ., [...] source) Sulfamethoxazole / Trimethoprim Drug Allergy 2 [facility] Repository (2 sources) Sulfamethoxazole / Trimethoprim Drug Allergy 2 [facility] Healthcare Medications Current Medications Medication Drug Class(es) Dates [...] injector (2 sources) Insulin Analog Start: 09-06-20 23 NovoLOG FLEXPEN 100 UNIT/ML pen SLIDING SCALE. [...] mg extended release oral capsule (5 sources) H-evqjby-W-aspartate Receptor Antagonist Memantine HCl ER 28 MG [...] before bedtime. 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 US/US venous duplex [facility] IMPRESSION: NO EVIDENCE FOR DEEP VEIN THROMBOSIS OR PROXIMAL SUPERFICIAL THROMBOPHLEBITIS IN THE RIGHT OR LEFT LOWER EXTREMITY. Patient was not able to complete Valsalva maneuver. Therefore reflux could not be evaluated. Greater saphenous vein was patent bilaterally from the groin to the ankle. Impression dictated by: Tigre Dorsey MD02/23/2022 1:03 PM Dictation Location: [place] [address] Tech: Sophia Thomas Transcribed By: JHON 02/23/22 1303 Dictated By: Tigre Dorsey MD 02/23/22 1302 Signed By: 02/23/22 1303 [facility] Vital Signs Date Time Vital Sign Value Performing Clinician Facility 11-20-2023 09:40-0500 Body weight 97.43 kg Tosha Aguirre MD Work Phone: [facility] 11-20-2023 09:40-0500 Diastolic blood pressure 58 mm[Hg] Tosha Aguirre MD Work Phone: [facility] 11-20-2023 09:40-0500 Heart rate 60 /min Tosha Aguirre MD Work Phone: [facility] 11-20-2023 09:40-0500 Systolic blood pressure 126 mm[Hg] Tosha Aguirre MD Work Phone: [facility] 05-23-2022 12:30-0400 Body height 187.96 cm Raven Prosper Other [facility] Other 05-23-2022 12:30-0400 Body mass index (BMI) [Ratio] 26.32 kg/m2 Raven Prosper Other [facility] Other 05-23-2022 12:30-0400 Body temperature 97 [degF] Raven Prosper Other [facility] Other 05-23-2022 12:30-0400 Body weight 92.99 kg Raven Orantesrenetta Other [facility] Other 05-23-2022 12:30-0400 Diastolic blood pressure 46 mm[Hg] Raven Cheng Other [facility] Other 05-23-2022 12:30-0400 SaO2% (BldA) [Mass fraction] 97 % Raven Oranteso Other [facility] Other 05-23-2022 12:30-0400 Systolic blood pressure 110 mm[Hg] Raven Oranteso Other [facility] Other 02-21-2022 12:45-0400 Body height 187.96 cm Raven Oranteso Other [facility] Other 02-21-2022 12:45-0400 Body temperature 97.2 [degF] Raven Oranteso Other [facility] Other 02-21-2022 12:45-0400 Diastolic blood pressure 60 mm[Hg] Raven Oranteso Other [facility] Other 02-21-2022 12:45-0400 SaO2% (BldA) [Mass fraction] 99 % Raven Oranteso Other [facility] Other 02-21-2022 12:45-0400 Systolic blood pressure 138 mm[Hg] Raven Oranteso Other [facility] Other 12-28-2021 11:45-0400 Body height 187.96 cm Blake Millard Other [facility] Other 12-28-2021 11:45-0400 Body mass index (BMI) [Ratio] 26.32 kg/m2 Blake Millard Other [facility] Other 12-28-2021 11:45-0400 Body temperature 96.6 [degF] Blake Millard Other [facility] Other 12-28-2021 11:45-0400 Body weight 92.99 kg Blake Millard Other [facility] Other 12-28-2021 11:45-0400 Diastolic blood pressure 70 mm[Hg] Blake Millard Other [facility] Other 12-28-2021 11:45-0400 SaO2% (BldA) [Mass fraction] 97 % Blake Millard Other [facility] Other 12-28-2021 11:45-0400 Systolic blood pressure 118 mm[Hg] Blake Millard Other [facility] Other Encounters Encounter Date Encounter Type Care Provider Facility Start: 11-20-2023 [employer] Tosha ernst MD Work Phone: [facility] Start: 11-20-2023 [employer] Tosha ernst MD Work Phone: [facility] Start: 11-20-2023 End: 11-20-2023 Office outpatient visit 25 minutes Tosha Aguirre MD Work Phone: [facility] Comment on above: Type 2 diabetes marbin itus with foot ulcer, with long-term current use of insulin (CMS/HCC) (Primary Dx); Chronic atrial fibrillation, unspecified (I48.20); Unspecified mood [affective] disorder (F39); Other ventricular tachycardia (I47.29); 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 gangrene, with long-term current use of insulin (CMS/HCC); Peripheral vascular disease, unspecified (I73.9); Dementia without behavioral disturbance, psychotic disturbance, mood disturbance, or anxiety, unspecified dementia severity, unspecified dementia type (CMS/HCC); Non-pressure chronic ulcer of other part of right foot with fat layer exposed (L97.512); Heart failure, unspecified HF chronicity, unspecified heart failure type (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); Urinary incontinence, unspecified type; Other cerebral infarction due to occlusion or stenosis of small artery ([facility]); DM type 2 with diabetic peripheral neuropathy ([facility]) Start: 02-24-2023 End: 02-25-[address] MARIXA [...] 05-23-2022 End: 05-23-2022 ambulatory Raven Cheng Other [facility] Other Start: 05-23-2022 Office outpatient vi sit 25 minutes Raven Cheng [facility] Start: 05-12-2022 End: 05-13-[address] MARIXA OCRDERO . Facility:[facility] Start: 04-22-2022 End: 04-23-[address] MARIXA CORDERO . Facility:[facility] Start: 04-01-2022 End: 04-02-[address] DESMOND BOSTON Facility:[facility] Start: 03-21-2022 End: 03-22-[address] MARIXA CORDERO . Facility:[facility] Start: 03-04-2022 End: 03-05-[address] MARIXA CORDERO . Facility:[facility] Start: 02-21-2022 End: 02-21-2022 ambulatory Raven Cheng Other [facility] Other Start: 02-21-2022 Follow-up encounter Raven Sands [facility] Start: 02-21-2022 End: 02-21-2022 Patient encounter procedure MD Blake Millard Work Phone: [facility] Start: 12-28-2021 End: 12-28-2021 ambulatory Blake Millard Other [facility] Other Start: 12-28-2021 Office outpatient ne w 45 minutes Blake Millard [facility] Vascular Surgery Plan of Treatment Date Care Activity Detail Author Start: 02-19-2024 End: 02-19-2024 Patient encounter procedure 02/19/2024 10:30 AM EDT Office Visit [facility] [address] [place] [address] Tosha Aguirre MD [address] [place] [address] [facility] Start: 01-17-2024 Hemoglobin A1c measurement Diabetes: Hemoglobin A1C [facility] Start: 11-20-2023 End: 11-20-2023 Patient encounter procedure 11/20/2023 9:30 AM EST Office Visit [facility] [address] [place] [address] Tosha Aguirre MD [address] [place], [place] [id number] 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 (Primary Dx); 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); [...] HF chronicity, unspecified heart failure type (CMS/HCC) [facility] Comment on above: 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 [...] of lower limb veins US venous duplex [facility] Start: 1945 Glaucoma screening Diabetes: R etinopathy Screening [facility] Start: 1935 Medicare Annual Well ness (AWV) Medicare Annual Wellness (AWV) [facility] Healthcare Immunizations Immunization Date Immunization Notes Care Provider Fa cility 09-05-2023 Pneumococcal Conjuga te PCV 20 Tosha Aguirre MD Work Phone: [facility] 07-21-2023 Influenza, High-dose Seasonal, Quadrivalent, Preservative Free Tosha Aguirre MD Work Phone: [facility] 08-02-2022 Influenza, High-dose Seasonal, Quadrivalent, Preservative Free Tosha Aguirre MD Work Phone: [facility] 11-22-2021 influenza, high dose seasonal, preservative-free Tosha Aguirre MD Work Phone: [facility] 09-11-2020 Influenza, High-dose Seasonal, Quadrivalent, Preservative Free Tosha Aguirre MD Work Phone: [facility] 09-05-2019 influenza, high dose seasonal, preservative-free Tosha Aguirre MD Work Phone: [facility] 09-12-2017 influenza, high dose seasonal, preservative-free Tosha Aguirre MD Work Phone: [facility] Payers Date Payer Category Payer Unknown AARP AARP [id number] 2022-Present [address] [place] [address] [id number] 2002 Medicare MEDICARE MEDICAR E PART B [id number] 2002-Present [address] [address] [place] [address] Medicare [id number] 1959 Medicare [id number] 1959 Unknown [id number] 1937 Unknown [id number] [id number] 1937 Unknown [id number] 2.16.840.1.341653.3.579.2.593 1937 Unknown [id number] 2.16.840.1.049328.3.579.2.593 1937 Unknown [id number] 2.16.840.1.260503.3.579.2.593 1937 Unknown [id number] 2.16.840.1.585350.3.579.2.593 1937 Unknown [id number] 2.16.840.1.745697.3.579.2.593 1937 Unknown [id number] 2.16.840.1.462089.3.579.2.593 1937 Unknown [id number] 2.16.840.1.046881.3.579.2.593 1937 Unknown [id number] 2.16.840.1.078164.3.579.2.593 1937 Unknown [id number] 2.16.840.1.778705.3.579.2.593 1937 Unknown [id number] 2.16.840.1.971183.3.579.2.593 1937 Unknown [id number] 2.16.840.1.722219.3.579.2.593 1937 Unknown [id number] 2.16.840.1.449218.3.579.2.593 1937 Unknown [id number] 2.16.840.1.594224.3.579.2.593 1937 Unknown [id number] 2.16.840.1.842988.3.579.2.593 1937 Unknown [id number] 2.16.840.1.961143.3.579.2.593 Self-pay Self Pay [id number] Social History Date Type Detail Facility Tobacco smoking status NHIS Unknown if ever smoked [facility] Other Start: 1935 Sex Assigned At Male [facility] Start: 11-20-2023 Sex Assigned At [facility] Other Tobacco smoking status NHIS Tobacco smoking [...] issues. HPI: Pt is a resident of [facility]. He is currently seeing wound care. [...] ulcer, with long-term current use of insulin ([facility]) sees wound care 2. Chronic atrial fibrillation, unspecified (I48.20) heart rate is controlled. Pt is no seeing cardiology, they dismissed him due to other comorbidities, emphasis on comfort 3. Unspecified mood [affective] disorder (F39) 4. Other ventricular tachycardia (I47.29) denies palpitations 5. 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 gangrene, with long-term current use of insulin ([facility]) eye exam 6. Peripheral vascular disease, unspecified (I73.9) sees wound care 7. Dementia without behavioral disturbance, psychotic disturbance, mood disturbance, or anxiety, unspecified dementia severity, unspecified dementia type ([facility]) 8. Non-pressure chronic ulcer of other part of right foot with fat layer exposed (L97.512) 9. Heart failure, unspecified HF chronicity, unspecified heart failure type ([facility]) no sign of CHF at this time, stable 10. 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 11. [facility]FP current use of anticoagulant 12. Advanced age emphasis on comfort, Resides at [place] 13. Gait disturbance walking with a cane 14. Essential (primary) hypertension (CMS/HCC) 15. Urinary incontinence, unspecified type 16. 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 DM type 2 with diabetic peripheral neuropathy (CMS/HCC) I will follow up on his DNR paperwork. Encouraged eye exam Hgba1c is 7.0 was 6.8 Pt wants to be kept comfortable at [place] and no hospitalization per and daughter. His answers most of his questions. They have been 65 yrs this week. Follow up in 3 months with his . Spent over 30 min problem focused care with over 50% in counseling documented in this encounter [facility] Clinical Note 07-22-2022 Note Date & Type [...] authenticated by: MIRIAM OTERO Date: 2022-07-22 11:18 [facility] Evaluation note 05-23-2022 Note Date & [...] basis should he deteriorate in any way. [facility] Other Clinical Note 04-01-2022 Note Date & [...] by: DESMOND BOSTON Date: 2022-04-01 18:12 [facility] Evaluation note 02-21-2022 Note Date & Type [...] understanding, agrees this plan, deny any questions. [facility] Other Evaluation note 12-28-2021 Note Date & [...] him back once that study is accomplished. [facility] Other Evaluation note Note Date & Type [...] unspecified heart failure type (CMS/HCC) 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 [facility] current use of anticoagulant Advanced age Gait [...] cataract removal left Hospitalization History see above [facility] Other Chief Complaint and Reason for Visit [...] PHYSICIAN NO FAMILY Primary Care Provider Active Psychologist Research Assistant Relationship Specialty Start Date End Date Tosha Aguirre MD [address] [place] [address] PCP - ACO Reach 03/09/23 Tosha Aguirre MD [address] [place] [address] PCP - General Family Medicine 02/21/23 Rosina Valdez, RN [address] [place] [address] Registered Nurse Family Medicine 10/31/23 Dinora Stroud LSW Information Assurance Officer [facility] 11/17/23 Psychologist Research Assistant Relationship Specialty Start Date End Date Tosha Aguirre MD [address] [place] [address] PCP - ACO Reach 03/09/23 Tosha Aguirre MD [address] [place] [address] PCP - General Family Medicine 02/21/23 Rosina Valdez, RN [address] [place] [address] Registered Nurse Family Medicine 10/31/23 Dinora Stroud LSW Information Assurance Officer [facility] 11/17/23 Goals (unrecognized section and content) Goals may be documented in a n alternate sectionNo InformationNo InformationNo InformationNo Information (unrecognized sect ion and content) No Status Records FoundNo Status Records Found INFORMATION SOURCE (unrecogn ized section and content) DATE CREATED AUTHOR 03/11/2022 [facility] DATE CREATED AUTHOR AUTHOR'S ORGANIZ ATION 02/25/2023 [facility] REASON FOR VISIT (unrecogniz ed section [...] BE BASED ON THE PRIMARY CLINICAL RECORDS. [facility] provides no warranty or guarantee of the accuracy or completeness of information in this document.
== END 2024-01-05 11:41 | disposition home or self-care (01) ==
LOC: WC 11:40
PROVIDERS: PCP Podiatrist Foot & Ankle Surgery; Visit Provider Podiatrist Foot & Ankle Surgery
DX: E11.621 Type 2 diabetes mellitus with foot ulcer (principal); L97.412 Non-pressure chronic ulcer of right heel and midfoot with fat layer exposed
CPT/HCPCS: 11042

== ENCOUNTER 2024-01-19 11:54 | Outpatient (OUT) | payer MEDICARE, SELFPAY ==
--- OUTSIDE RECORDS SUMMARY | 2024-01-19 12:15 | XMS_ITS | CCD ---
Author Organization [facility] Care Team Providers Care Marble Cleaner Name Role Phone MD Blake Millard [...] JOLLEY Admitting Unavailable Tosha Aguirre MD Unavailable [phone] Tosha Aguirre MD Primary Care Provider Courtney COPE, Rosina Unavailable Unavailable Dinora Sherwood Unavailable Unavailable Allergies Allergy Classification Reported Allergen(s) Allergy Type Date of Onset Reaction(s) Facility (1 source) Sulfamethoxazole / Trimethoprim Drug Allergy 2 [facility] Repository (2 sources) Sulfamethoxazole / Trimethoprim Drug Allergy 2 [facility] Medications Current Medications Medication Drug [...] mg extended release oral capsule (5 sources) E-psemgh-W-aspartate Receptor Antagonist Memantine HCl ER 28 MG [...] before bedtime. 0 Active polyethylene glycol 3350 93374 mg powder for oral solution (6 sources) [...] source) Long-term current use of anticoagulant; Translations: [retirement (current) use of anticoagulants] 11-20-2023 Episodic Other [...] venous duplex LE BIon US venous duplex [facility] [place] [address] Ultrasound Report Signed Patient: Tayo Uribe MR#: [id number] : 1935 Acct:[id number] Age/Sex: 86 / M ADM Date: 02/21/22 Loc: [facility] Room: Type: [facility] Attending Dr: Blake Millard MD Ordering Provider: [...] calf veins are compressible. US/US venous duplex [facility] IMPRESSION: NO EVIDENCE FOR DEEP VEIN THROMBOSIS OR PROXIMAL SUPERFICIAL THROMBOPHLEBITIS IN THE RIGHT OR LEFT LOWER EXTREMITY. Patient was not able to complete Valsalva maneuver. Therefore reflux could not be evaluated. Greater saphenous vein was patent bilaterally from the groin to the ankle. Impression dictated by: Tigre Dorsey MD02/23/2022 1:03 PM Dictation Location: [place] [address] Tech: Sophia Thomas Transcribed By: JHON 02/23/22 1303 Dictated By: Tigre Dorsey MD 02/23/22 1302 Signed By: 02/23/22 1303 [facility] Vital Signs Date Time Vital Sign Value Performing Clinician Facility 11-20-2023 09:40-0500 Body weight 97.43 kg Tosha Aguirre MD Work Phone: [facility] 11-20-2023 09:40-0500 Diastolic blood pressure 58 mm[Hg] Tosha Aguirre MD Work Phone: [facility] 11-20-2023 09:40-0500 Heart rate 60 /min Tosha Aguirre MD Work Phone: [facility] 11-20-2023 09:40-0500 Systolic blood pressure 126 mm[Hg] Tosha Aguirre MD Work Phone: [facility] 05-23-2022 12:30-0400 Body height 187.96 cm Raven Prosper Other [facility] Other 05-23-2022 12:30-0400 Body mass index (BMI) [Ratio] 26.32 kg/m2 Raven Prosper Other [facility] Other 05-23-2022 12:30-0400 Body temperature 97 [degF] Raven Prosper Other [facility] Other 05-23-2022 12:30-0400 Body weight 92.99 kg Raven Orantesrenetta Other [facility] Other 05-23-2022 12:30-0400 Diastolic blood pressure 46 mm[Hg] Raven Cheng Other [facility] Other 05-23-2022 12:30-0400 SaO2% (BldA) [Mass fraction] 97 % Raven Oranteso Other [facility] Other 05-23-2022 12:30-0400 Systolic blood pressure 110 mm[Hg] Raven Oranteso Other [facility] Other 02-21-2022 12:45-0400 Body height 187.96 cm Raven Oranteso Other [facility] Other 02-21-2022 12:45-0400 Body temperature 97.2 [degF] Raven Oranteso Other [facility] Other 02-21-2022 12:45-0400 Diastolic blood pressure 60 mm[Hg] Raven Oranteso Other [facility] Other 02-21-2022 12:45-0400 SaO2% (BldA) [Mass fraction] 99 % Raven Oranteso Other [facility] Other 02-21-2022 12:45-0400 Systolic blood pressure 138 mm[Hg] Raven Oranteso Other [facility] Other 12-28-2021 11:45-0400 Body height 187.96 cm Blake Millard Other [facility] Other 12-28-2021 11:45-0400 Body mass index (BMI) [Ratio] 26.32 kg/m2 Blake Millard Other [facility] Other 12-28-2021 11:45-0400 Body temperature 96.6 [degF] Blake Millard Other [facility] Other 12-28-2021 11:45-0400 Body weight 92.99 kg Blake Millard Other [facility] Other 12-28-2021 11:45-0400 Diastolic blood pressure 70 mm[Hg] Blake Millard Other [facility] Other 12-28-2021 11:45-0400 SaO2% (BldA) [Mass fraction] 97 % Blake Millard Other [facility] Other 12-28-2021 11:45-0400 Systolic blood pressure 118 mm[Hg] Blake Millard Other [facility] Other Encounters Encounter Date Encounter Type Care Provider Facility Start: 11-20-2023 [employer] Tosha ernst MD Work Phone: [facility] Start: 11-20-2023 [employer] Tosha ernst MD Work Phone: [facility] Start: 11-20-2023 End: 11-20-2023 Office outpatient visit 25 minutes Tosha Aguirre MD Work Phone: [facility] Comment on above: Type 2 diabetes [...] unspecified HF chronicity, unspecified heart failure type ([facility]); 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; retirement current use of anticoagulant; Advanced age; Gait disturbance; Essential (primary) hypertension ([facility]); Urinary incontinence, unspecified type; Other cerebral infarction due to occlusion or stenosis of small artery ([facility]); DM type 2 with diabetic peripheral neuropathy ([facility]) Start: 02-24-2023 End: 02-25-[address] MARXIA CORDERO . Facility:[facility] Start: 02-03-2023 End: 02-04-2023 [...] 05-23-2022 End: 05-23-2022 ambulatory Raven Cheng Other [facility] Other Start: 05-23-2022 Office outpatient vi sit 25 minutes Raven Cheng [facility] Start: 05-12-2022 End: 05-13-[address] MARIXA CORDERO . Facility:[facility] Start: 04-22-2022 End: 04-23-[address] MARIXA CORDERO . Facility:[facility] Start: 04-01-2022 End: 04-02-[address] DEMSOND BOSTON Facility:[facility] Start: 03-21-2022 End: 03-22-[address] MARIXA CORDERO . Facility:[facility] Start: 03-04-2022 End: 03-05-[address] MARIXA CORDERO . Facility:[facility] Start: 02-21-2022 End: 02-21-2022 ambulatory Raven Cheng Other [facility] Other Start: 02-21-2022 Follow-up encounter Raven Sands [facility] Start: 02-21-2022 End: 02-21-2022 Patient encounter procedure MD Blake Millard Work Phone: [facility] Start: 12-28-2021 End: 12-28-2021 ambulatory Blake Millard Other [facility] Other Start: 12-28-2021 Office outpatient ne w 45 minutes Blake Millard [facility] Vascular Surgery Plan of Treatment Date Care Activity Detail Author Start: 02-19-2024 End: 02-19-2024 Patient encounter procedure 02/19/2024 10:30 AM EDT Office Visit [facility] [address] [facility] [address] [place] [address] Tosha Aguirre MD [address] [facility] [address] [place] [address] [facility] Start: 01-17-2024 Hemoglobin A1c measurement Diabetes: Hemoglobin A1C [facility] Start: 11-20-2023 End: 11-20-2023 Patient encounter procedure 11/20/2023 9:30 AM EST Office Visit [facility] [address] [facility] [place] [address] Tosha Aguirre MD [address] [facility] [address] [address] [place], [place] [id number] 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 (Primary Dx); 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); [...] of lower limb veins US venous duplex [facility] Start: 1945 Glaucoma screening Diabetes: R etinopathy Screening [facility] Start: 1935 Medicare Annual Well ness (AWV) Medicare Annual Wellness (AWV) [facility] Immunizations Immunization Date Immunization Notes Care Provider Fa cility 09-05-2023 Pneumococcal Conjuga te PCV 20 Tosha Aguirre MD Work Phone: [facility] 07-21-2023 Influenza, High-dose Seasonal, Quadrivalent, Preservative Free Tosha Aguirre MD Work Phone: [facility] 08-02-2022 Influenza, High-dose Seasonal, Quadrivalent, Preservative Free Tosha Aguirre MD Work Phone: [facility] 11-22-2021 influenza, high dose seasonal, preservative-free Tosha Aguirre MD Work Phone: [facility] 09-11-2020 Influenza, High-dose Seasonal, Quadrivalent, Preservative Free Tosha Aguirre MD Work Phone: [facility] 09-05-2019 influenza, high dose seasonal, preservative-free Tosha Aguirre MD Work Phone: [facility] 09-12-2017 influenza, high dose seasonal, preservative-free Tosha Aguirre MD Work Phone: [facility] Payers Date Payer Category Payer Unknown AARP AARP [id number] 2022-Present [address] [place] [address] [id number] 2002 Medicare MEDICARE MEDICAR E PART B [id number] 2002-Present [address] [address] [place] [address] Medicare [id number] 1959 Medicare [id number] 1959 Unknown [id number] 1937 Unknown [id number] [id number] 1937 Unknown [id number] 2.16.840.1.571004.3.579.2.593 1937 Unknown [id number] 2.16.840.1.305631.3.579.2.593 1937 Unknown [id number] 2.16.840.1.811581.3.579.2.593 1937 Unknown [id number] 2.16.840.1.451427.3.579.2.593 1937 Unknown [id number] 2.16.840.1.284886.3.579.2.593 1937 Unknown [id number] 2.16.840.1.024003.3.579.2.593 1937 Unknown [id number] 2.16.840.1.533924.3.579.2.593 1937 Unknown [id number] 2.16.840.1.584122.3.579.2.593 1937 Unknown [id number] 2.16.840.1.300089.3.579.2.593 1937 Unknown [id number] 2.16.840.1.904508.3.579.2.593 1937 Unknown [id number] 2.16.840.1.419165.3.579.2.593 1937 Unknown [id number] 2.16.840.1.562121.3.579.2.593 1937 Unknown [id number] 2.16.840.1.419866.3.579.2.593 1937 Unknown [id number] 2.16.840.1.500680.3.579.2.593 1937 Unknown [id number] 2.16.840.1.740418.3.579.2.593 Self-pay Self Pay [id number] Social History Date Type Detail Facility Tobacco smoking status NHIS Unknown if ever smoked [facility] Other Start: 1935 Sex Assigned At Male [facility] Start: 11-20-2023 Sex Assigned At [facility] Other Tobacco smoking status NHIS Tobacco smoking [...] issues. HPI: Pt is a resident of [facility]. He is currently seeing wound care. Pt [...] ulcer, with long-term current use of insulin ([facility]) sees wound care 2. Chronic atrial fibrillation, unspecified (I48.20) heart rate is controlled. Pt is no seeing cardiology, they dismissed him due to other comorbidities, emphasis on comfort 3. Unspecified mood [affective] disorder (F39) 4. Other ventricular tachycardia (I47.29) denies palpitations 5. 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 gangrene, with long-term current use of insulin ([facility]) eye exam 6. Peripheral vascular disease, unspecified (I73.9) sees wound care 7. Dementia without behavioral disturbance, psychotic disturbance, mood disturbance, or anxiety, unspecified dementia severity, unspecified dementia type ([facility]) 8. Non-pressure chronic ulcer of other part of right foot with fat layer exposed (L97.512) 9. Heart failure, unspecified HF chronicity, unspecified heart failure type ([facility]) no sign of CHF at this time, stable 10. 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 Advanced age emphasis on comfort, Resides at [place] 13. Gait disturbance walking with a cane 14. Essential (primary) hypertension (CMS/HCC) 15. Urinary incontinence, unspecified type 16. 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 DM type 2 with diabetic peripheral neuropathy (CMS/HCC) I will follow up on his DNR paperwork. Encouraged eye exam Hgba1c is 7.0 was 6.8 Pt wants to be kept comfortable at [facility] and no hospitalization per and daughter. His answers most of his questions. They have been 65 yrs this week. Follow up in 3 months with his . Spent over 30 min problem focused care with over 50% in counseling documented in this encounter [facility] Clinical Note 07-22-2022 Note Date & Type [...] authenticated by: MIRIAM OTERO Date: 2022-07-22 11:18 [facility] Evaluation note 05-23-2022 Note Date & [...] basis should he deteriorate in any way. [facility] Other Clinical Note 04-01-2022 Note Date & [...] by: DESMOND BOSTON Date: 2022-04-01 18:12 [facility] Evaluation note 02-21-2022 Note Date & [...] understanding, agrees this plan, deny any questions. [facility] Other Evaluation note 12-28-2021 Note Date & [...] him back once that study is accomplished. 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 Advanced age Gait [...] cataract removal left Hospitalization History see above [facility] Other Chief Complaint and Reason for Visit [...] PHYSICIAN NO FAMILY Primary Care Provider Active Marble Cleaner Relationship Specialty Start Date End Date Tosha Aguirre MD [address] [place] [address] PCP - ACO Reach 03/09/23 Tosha Aguirre MD [address] [place] [address] PCP - General Family Medicine 02/21/23 Rosina Valdez, RN [address] [facility] [address] [place] [address] Registered Nurse Family Medicine 10/31/23 Dinora Stroud LSW Felt Tipping Machine Tender [facility] Medicine 11/17/23 Marble Cleaner Relationship Specialty Start Date End Date Tosha Aguirre MD [address] [facility] [place] [address] PCP - ACO Reach 03/09/23 Tosha Aguirre MD [address] [place] [address] PCP - General Family Medicine 02/21/23 Rosina Valdez, RN [address] [place] [address] Registered Nurse Family Medicine 10/31/23 Dinora Stroud LSW [employer]elt Tipping Machine Tender [facility] Medicine 11/17/23 Goals (unrecognized section and content) Goals may be documented in a n alternate sectionNo InformationNo InformationNo InformationNo Information (unrecognized sect ion and content) No Status Records FoundNo Status Records Found INFORMATION SOURCE (unrecogn ized section and content) DATE CREATED AUTHOR 03/11/2022 [facility] DATE CREATED AUTHOR AUTHOR'S ORGANIZ ATION 02/25/2023 [...] BE BASED ON THE PRIMARY CLINICAL RECORDS. [employer] [facility]. provides no warranty or guarantee of the accuracy or completeness of information in this document.
== END 2024-01-19 11:55 | disposition home or self-care (01) ==
LOC: WC 11:54
PROVIDERS: PCP Podiatrist Foot & Ankle Surgery; Visit Provider Podiatrist Foot & Ankle Surgery
DX: E11.621 Type 2 diabetes mellitus with foot ulcer (principal); L97.412 Non-pressure chronic ulcer of right heel and midfoot with fat layer exposed
CPT/HCPCS: 11042

== ENCOUNTER 2024-02-02 11:31 | Outpatient (OUT) | payer MEDICARE, SELFPAY | END 2024-02-02 11:32 | disposition home or self-care (01) | LOC: WC 11:31 | PROVIDERS: PCP Podiatrist Foot & Ankle Surgery; Visit Provider Podiatrist Foot & Ankle Surgery | DX: E11.621 Type 2 diabetes mellitus with foot ulcer (principal); L97.412 Non-pressure chronic ulcer of right heel and midfoot with fat layer exposed | CPT/HCPCS: G0463 ==

== ENCOUNTER 2024-03-08 10:30 | Outpatient (OUT) | payer MEDICARE, SELFPAY | END 2024-03-08 10:31 | disposition home or self-care (01) | LOC: WC 03-13 09:05 | PROVIDERS: PCP Podiatrist Foot & Ankle Surgery; Visit Provider Podiatrist Foot & Ankle Surgery | DX: E11.621 Type 2 diabetes mellitus with foot ulcer (principal); L97.412 Non-pressure chronic ulcer of right heel and midfoot with fat layer exposed | CPT/HCPCS: G0463 ==

== ENCOUNTER 2024-04-05 11:39 | Outpatient (OUT) | payer MEDICARE, SELFPAY | END 2024-04-05 11:40 | disposition home or self-care (01) | LOC: WC 11:39 | PROVIDERS: PCP Podiatrist Foot & Ankle Surgery; Visit Provider Podiatrist Foot & Ankle Surgery | DX: E11.621 Type 2 diabetes mellitus with foot ulcer (principal); L97.411 Non-pressure chronic ulcer of right heel and midfoot limited to breakdown of skin | CPT/HCPCS: G0463 ==

== ENCOUNTER 2024-04-26 11:33 | Outpatient (OUT) | payer MEDICARE, SELFPAY | END 2024-04-26 11:34 | disposition home or self-care (01) | LOC: WC 11:33 | PROVIDERS: PCP Podiatrist Foot & Ankle Surgery; Visit Provider Podiatrist Foot & Ankle Surgery | DX: E11.621 Type 2 diabetes mellitus with foot ulcer (principal); L97.411 Non-pressure chronic ulcer of right heel and midfoot limited to breakdown of skin | CPT/HCPCS: 11042 ==

== ENCOUNTER 2024-05-17 11:40 | Outpatient (OUT) | payer MEDICARE, SELFPAY | END 2024-05-17 11:41 | disposition home or self-care (01) | LOC: WC 11:40 | PROVIDERS: PCP Podiatrist Foot & Ankle Surgery; Visit Provider Podiatrist Foot & Ankle Surgery | DX: R60.0 Localized edema (principal); E11.621 Type 2 diabetes mellitus with foot ulcer; L97.411 Non-pressure chronic ulcer of right heel and midfoot limited to breakdown of skin; I87.332 Chronic venous hypertension (idiopathic) with ulcer and inflammation of left lower extremity; L97.822 Non-pressure chronic ulcer of other part of left lower leg with fat layer exposed | CPT/HCPCS: 11042 ==

== ENCOUNTER 2024-05-31 11:37 | Outpatient (OUT) | payer MEDICARE, SELFPAY ==
--- OUTSIDE RECORDS SUMMARY | 2024-05-31 11:51 | XMS_ITS | CCD ---
Author Organization [facility] CliniSyma Care Team Providers Care Stonecutter Hand Name Role Phone MD Blake Millard Attending Provider NO FAMILY, PHYSICIAN Primary Care Provider Unava ilable Blake Millard Unavailable Raven Cheng Unavailable CORDERO ., DR MARIXA Lewis Primary Care Unavailable HIGHLANDER, PETER D Attending Unavailable HIGHLANDER, PETER D Admitting Unavailable CORDERO ., DR MAIRXA Lewis Primary Care Unavailable HIGHLANDER, PETER Elida [...] source) Sulfamethoxazole / Trimethoprim Drug Allergy 2 [facility] Repository (2 sources) Sulfamethox[facility] Medications Current Medications Medication Drug Class(es) [...] mg extended release oral capsule (5 sources) O-rvawom-Q-aspartate Receptor Antagonist Memantine HCl ER 28 MG [...] before bedtime. 0 Active polyethylene glycol 3350 40608 mg powder for oral solution (6 sources) [...] source) Long-term current use of anticoagulant; Translations: [shelter (current) use of anticoagulants] 11-20-2023 Episodic Other [...] venous duplex LE BIon US venous duplex [facility] [place] [address] Ultrasound Report Signed Patient: Tayo Uribe MR#: [id number] 39 : 1935 Acct:[id number] Age/Sex: 86 / M ADM Date: 02/21/22 Loc: [facility] Room: Type: [facility] Attending Dr: Blake Millard [...] calf veins are compressible. US/US venous duplex BI IMPRESSION: NO EVIDENCE FOR DEEP VEIN THROMBOSIS OR PROXIMAL SUPERFICIAL THROMBOPHLEBITIS IN THE RIGHT OR LEFT LOWER EXTREMITY. Patient was not able to complete Valsalva maneuver. Therefore reflux could not be evaluated. Greater saphenous vein was patent bilaterally from the groin to the ankle. Impression dictated by: Tigre Dorsey MD02/23/2022 1:03 PM Dictation Location: [place] [address] Tech: Sophia Thomas Transcribed By: JHON 02/23/22 1303 Dictated By: Tigre Dorsey MD 02/23/22 1302 Signed By: 02/23/22 1303 [facility] Vital Signs Date Time Vital Sign Value Performing Clinician Facility 11-20-2023 09:40-0500 Body weight 97.43 kg Tosha Aguirre MD Work Phone: [facility] 11-20-2023 09:40-0500 Diastolic blood pressure 58 mm[Hg] Tosha Aguirre MD Work Phone: [facility] 11-20-2023 09:40-0500 Heart rate 60 /min Tosha Aguirre MD Work Phone: [facility] 11-20-2023 09:40-0500 Systolic blood pressure 126 mm[Hg] Tosha Aguirre MD Work Phone: [facility] 05-23-2022 12:30-0400 Body height 187.96 cm Raven Prosper Other [facility] Other 05-23-2022 12:30-0400 Body mass index (BMI) [Ratio] 26.32 kg/m2 Raven Prosper Other [facility] Other 05-23-2022 12:30-0400 Body temperature 97 [degF] Raven Prosper Other [facility] Other 05-23-2022 12:30-0400 Body weight 92.99 kg Raven Orantesrenetta Other [facility] Other 05-23-2022 12:30-0400 Diastolic blood pressure 46 mm[Hg] Raven Cheng Other [facility] Other 05-23-2022 12:30-0400 SaO2% (BldA) [Mass fraction] 97 % Raven Oranteso Other [facility] Other 05-23-2022 12:30-0400 Systolic blood pressure 110 mm[Hg] Raven Oranteso Other [facility] Other 02-21-2022 12:45-0400 Body height 187.96 cm Raven Oranteso Other [facility] Other 02-21-2022 12:45-0400 Body temperature 97.2 [degF] Raven Oranteso Other [facility] Other 02-21-2022 12:45-0400 Diastolic blood pressure 60 mm[Hg] Raven Oranteso Other [facility] Other 02-21-2022 12:45-0400 SaO2% (BldA) [Mass fraction] 99 % Raven Cheng Other [facility] Other 02-21-2022 12:45-0400 Systolic blood pressure 138 mm[Hg] Raven Oranteso Other [facility] Other 12-28-2021 11:45-0400 Body height 187.96 cm Blake Millard Other [facility] Other 12-28-2021 11:45-0400 Body mass index (BMI) [Ratio] 26.32 kg/m2 Blake Millard Other [facility] Other 12-28-2021 11:45-0400 Body temperature 96.6 [degF] Blake Millard Other [facility] Other 12-28-2021 11:45-0400 Body weight 92.99 kg Blake Millard Other [facility] Other 12-28-2021 11:45-0400 Diastolic blood pressure 70 mm[Hg] Blake Millard Other [facility] Other 12-28-2021 11:45-0400 SaO2% (BldA) [Mass fraction] 97 % Blake Millard Other [facility] Other 12-28-2021 11:45-0400 Systolic blood pressure 118 mm[Hg] Blake Millard Other [facility] Other Encounters Encounter Date Encounter Type Care Provider Facility Start: 11-20-2023 Stem[employer] Tosha ernst MD Work Phone: [facility] Start: 11-20-2023 [employer] Tosha ernst MD Work Phone: [facility] Start: 11-20-2023 End: 11-20-2023 Office outpatient visit 25 minutes Tosha Aguirre MD Work Phone: [facility] Comment on above: Type 2 diabetes marbin itus with foot ulcer, with long-term current use of insulin ([facility]) (Primary Dx); Chronic atrial fibrillation, unspecified (I48.20); Unspecified mood [affective] disorder (F39); Other ventricular tachycardia (I47.29); 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 gangrene, with long-term current use of insulin ([facility]); Peripheral vascular disease, unspecified (I73.9); Dementia without behavioral disturbance, psychotic disturbance, mood disturbance, or anxiety, unspecified dementia severity, unspecified dementia type (CMS/HCC); Non-pressure chronic ulcer of other part of right foot with fat layer exposed (L97.512); Heart failure, unspecified HF chronicity, unspecified heart failure type ([facility]); 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; 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; Advanced age; Gait disturbance; Essential (primary) hypertension ([facility]); Urinary incontinence, unspecified type; Other cerebral infarction due to occlusion or stenosis of small artery ([facility]); DM type 2 with diabetic peripheral neuropathy ([facility]) Start: 02-24-2023 End: 02-25-[address] MARIXA [...] 05-23-2022 End: 05-23-2022 ambulatory Raven Cheng Other [facility] Other Start: 05-23-2022 Office outpatient vi sit [...] 02-21-2022 End: 02-21-2022 ambulatory Raven Cheng Other [facility] Other Start: 02-21-2022 Follow-up encounter [facility] Start: 02-21-2022 End: 02-21-2022 Patient encounter procedure MD Blake Millard Work Phone: [facility] Start: 12-28-2021 End: 12-28-2021 ambulatory Blake Millard Other [facility] Other Start: 12-28-2021 Office outpatient ne w 45 minutes Blake Millard [facility] V[facility] Surgery Plan of Treatment Date Care Activity Detail Author Start: 02-19-2024 End: 02-19-2024 Patient encounter procedure 02/19/2024 10:30 AM EDT Office Visit [facility] [address] [place] [address] Tosha Aguirre MD [address] [place], [place] [id number] [facility] Start: 01-17-2024 Hemoglobin A1c measurement Diabetes: Hemoglobin A1C [facility] Start: 11-20-2023 End: 11-20-2023 Patient encounter procedure 11/20/2023 9:30 AM EST Office Visit [facility] [address] [place] [id number] Tosha Aguirre MD [address] [place] [address] 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 (Primary Dx); 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); [...] 02-21-2022 Duplex scan of lower limb veins venous duplex [facility] Start: 1945 Glaucoma screening Diabetes: R etinopathy Screening [facility] Healthcare Start: 1935 Medicare Annual Well ness (AWV) Medicare Annual Wellness (AWV) [facility] Immunizations Immunization Date Immunization Notes Care Provider Fa cility 09-05-2023 Pneumococcal Conjuga te PCV 20 Tosha Aguirre MD Work Phone: [facility] 07-21-2023 Influenza, High-dose Seasonal, Quadrivalent, Preservative Free Tosha Aguirre MD Work Phone: [facility] 08-02-2022 Influenza, High-dose Seasonal, Quadrivalent, Preservative Free Tosha Aguirre MD Work Phone: [facility] 11-22-2021 influenza, high dose seasonal, preservative-free Tosha Aguirre MD Work Phone: [facility] 09-11-2020 Influenza, High-dose Seasonal, Quadrivalent, Preservative Free Tosha Aguirre MD Work Phone: [facility] 09-05-2019 influenza, high dose seasonal, preservative-free Tosha Aguirre MD Work Phone: [facility] 09-12-2017 influenza, high dose seasonal, preservative-free Tosha Aguirre MD Work Phone: [facility] Payers Date Payer Category Payer Unknown AARP AARP [id number] 2022-Present [address] [place] [address] [id number] 2002 Medicare MEDICARE MEDICAR E PART B [id number] 2002-Present [address] [address] [place] [address] Medicare [id number] 1959 Medicare [id number] 1959 Unknown [id number] 1937 Unknown [id number] [id number] 1937 Unknown [id number] 2.16.840.1.879115.3.579.2.593 1937 Unknown [id number] 2.16.840.1.037321.3.579.2.593 1937 Unknown [id number] 2.16.840.1.252484.3.579.2.593 1937 Unknown [id number] 2.16.840.1.949244.3.579.2.593 1937 Unknown [id number] 2.16.840.1.503165.3.579.2.593 1937 Unknown [id number] 2.16.840.1.532871.3.579.2.593 1937 Unknown [id number] 2.16.840.1.825313.3.579.2.593 1937 Unknown [id number] 2.16.840.1.848427.3.579.2.593 1937 Unknown [id number] 2.16.840.1.369231.3.579.2.593 1937 Unknown [id number] 2.16.840.1.578116.3.579.2.593 1937 Unknown [id number] 2.16.840.1.061071.3.579.2.593 1937 Unknown [id number] 2.16.840.1.558242.3.579.2.593 1937 Unknown [id number] 2.16.840.1.467120.3.579.2.593 1937 Unknown [id number] 2.16.840.1.273958.3.579.2.593 1937 Unknown [id number] 2.16.840.1.182517.3.579.2.593 Self-pay Self Pay [id number] Social History Date Type Detail Facility Tobacco smoking status NHIS Unknown if ever smoked [facility] Other Start: 1935 Sex Assigned At Male [facility] Start: 11-20-2023 Sex Assigned At [facility] Other Tobacco smoking status NHIS Tobacco smoking [...] issues. HPI: Pt is a resident of [facility]. He is currently seeing wound [...] ulcer, with long-term current use of insulin ([facility]) sees wound care 2. Chronic atrial fibrillation, unspecified (I48.20) heart rate is controlled. Pt is no seeing cardiology, they dismissed him due to other comorbidities, emphasis on comfort 3. Unspecified mood [affective] disorder (F39) 4. Other ventricular tachycardia (I47.29) denies palpitations 5. 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 gangrene, with long-term current use of insulin ([facility]) eye exam 6. Peripheral vascular disease, unspecified (I73.9) sees wound care 7. Dementia without behavioral disturbance, psychotic disturbance, mood disturbance, or anxiety, unspecified dementia severity, unspecified dementia type ([facility]) 8. Non-pressure chronic ulcer of other part of right foot with fat layer exposed (L97.512) 9. Heart failure, unspecified HF chronicity, unspecified heart failure type ([facility]) no sign of CHF at this time, stable 10. 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 11. shelter current use of anticoagulant 12. Advanced age emphasis on comfort, Resides at [facility] 13. Gait disturbance walking with a cane 14. Essential (primary) hypertension (CMS/HCC) 15. Urinary incontinence, unspecified type 16. Other cerebral infarction due to occlusion or stenosis of small artery ([facility]/HCC) 17. DM type 2 with diabetic peripheral neuropathy ([facility]) I will follow up on his DNR paperwork. Encouraged eye exam Hgba1c is 7.0 was 6.8 Pt wants to be kept comfortable at [place] and no hospitalization per and daughter. His answers most of his questions. They have been 65 yrs this week. Follow up in 3 months with his . Spent over 30 min problem focused care with over 50% in counseling documented in this encounter [facility] Clinical Note 07-22-2022 Note Date & [...] authenticated by: MIRIAM OTERO Date: 2022-07-22 11:18 [facility] Evaluation note 05-23-2022 Note Date & Type [...] basis should he deteriorate in any way. [facility] Other Clinical Note 04-01-2022 Note Date & [...] by: DESMOND BOSTON Date: 2022-04-01 18:12 [facility] Evaluation note 02-21-2022 Note Date & Type [...] understanding, agrees this plan, deny any questions. [facility] Other Evaluation note 12-28-2021 Note Date & [...] him back once that study is accomplished. [facility] Other Evaluation note Note Date & Type Note Facility Evaluation note No assessment information availa [facility] Work Phone: Evaluation note Note Date [...] unspecified heart failure type (CMS/HCC) 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 shelter current use of anticoagulant Advanced age Gait [...] cataract removal left Hospitalization History see above [facility] Other Chief Complaint and Reason for Visit [...] PHYSICIAN NO FAMILY Primary Care Provider Active Stonecutter Hand Relationship Specialty Start Date End Date Tosha Aguirre MD [address] [facility] [place] [address] PCP - ACO Reach 03/09/23 Tosha Aguirre MD [address] [facility] [place] [address] PCP - General Family Medicine 02/21/23 Rosina Valdez, RN [address] [place] [address] Registered Nurse Family Medicine 10/31/23 Dinora Stroud LSW [employer] [facility] Medicine 11/17/23 Stonecutter Hand Relationship Specialty Start Date End Date Tosha Aguirre MD [address] [facility] [place] [address] PCP - ACO Reach 03/09/23 Tosha Aguirre MD [address] [facility] [place] [address] PCP - General Family Medicine 02/21/23 Rosina Valdez, RN [address] [place] [address] Registered Nurse Family Medicine 10/31/[address] [facility] [employer] [facility] Medicine 11/17/23 Goals (unrecognized section and content) Goals may be documented in a n alternate sectionNo InformationNo InformationNo InformationNo Information (unrecognized sect ion and content) No Status Records FoundNo Status Records Found INFORMATION SOURCE (unrecogn ized section and content) DATE CREATED AUTHOR 03/11/2022 [facility] DATE CREATED AUTHOR 'S ORGANIZ ATION 02/25/2023 [facility]il[facility] REASON FOR VISIT (unrecogniz ed section and [...] BE BASED ON THE PRIMARY CLINICAL RECORDS. [facility]. provides no warranty or guarantee of the accuracy or completeness of information in this document.
== END 2024-05-31 11:38 | disposition home or self-care (01) ==
LOC: WC 11:37
PROVIDERS: PCP Podiatrist Foot & Ankle Surgery; Visit Provider Podiatrist Foot & Ankle Surgery
DX: E11.621 Type 2 diabetes mellitus with foot ulcer (principal); L97.411 Non-pressure chronic ulcer of right heel and midfoot limited to breakdown of skin
CPT/HCPCS: 11042

== ENCOUNTER 2024-06-14 11:58 | Outpatient (OUT) | payer MEDICARE, SELFPAY | END 2024-06-14 11:59 | disposition home or self-care (01) | LOC: WC 11:58 | PROVIDERS: PCP Podiatrist Foot & Ankle Surgery; Visit Provider Podiatrist Foot & Ankle Surgery | DX: E11.621 Type 2 diabetes mellitus with foot ulcer (principal); L97.411 Non-pressure chronic ulcer of right heel and midfoot limited to breakdown of skin; I87.312 Chronic venous hypertension (idiopathic) with ulcer of left lower extremity; L97.828 Non-pressure chronic ulcer of other part of left lower leg with other specified severity | CPT/HCPCS: 11042 ==

== ENCOUNTER 2024-06-28 10:50 | Outpatient (OUT) | payer MEDICARE, SELFPAY ==
--- OUTSIDE RECORDS SUMMARY | 2024-06-28 11:18 | XMS_ITS | CCD ---
Author Organization [facility] [employer] Care Team Providers Care Machine Pecan Gatherer Name Role Phone MD Blake Millard Attending Provider [phone] NO FAMILY, PHYSICIAN Primary Care Provider Unava [...] JOLLEY Admitting Unavailable Tosha Aguirre MD Unavailable [phone] Tosha Aguirre MD Primary Care Provider Courtney COPE, Rosina Unavailable Unavailable Dinora Sherwood Unavailable Unavailable Allergies Allergy Classification Reported Allergen(s) Allergy Type Date of Onset Reaction(s) Facility (1 source) Sulfamethoxazole / Trimethoprim Drug Allergy 2 [facility] Repository (2 sources) Sulfamethoxazole / Trimethoprim [facility] Medications Current Medications Medication Drug [...] mg extended release oral capsule (5 sources) Q-ltirfq-O-aspartate Receptor Antagonist Memantine HCl ER 28 MG [...] before bedtime. 0 Active polyethylene glycol 3350 18656 mg powder for oral solution (6 sources) [...] venous duplex LE BIon US venous duplex [facility] [place] [address] Ultrasound Report Signed Patient: Tayo Uribe MR#: [id number] 39 : 1935 Acct:[id number] Age/Sex: 86 / M ADM Date: 02/21/22 Loc: [facility] Room: Type: [facility] Attending Dr: Blake Millard MD Ordering Provider: [...] Tigre Dorsey MD02/23/2022 1:03 PM Dictation Location: [place] [address] Tech: Sophia Thomas Transcribed By: JHON 02/23/22 1303 Dictated By: Tigre Dorsey MD 02/23/22 1302 Signed By: 02/23/22 1303 [facility] Vital Signs Date Time Vital Sign Value Performing Clinician Facility 11-20-2023 09:40-0500 Body weight 97.43 kg Tosha Aguirre MD Work Phone: [facility] 11-20-2023 09:40-0500 Diastolic blood pressure 58 mm[Hg] Tosha Aguirre MD Work Phone: [facility] 11-20-2023 09:40-0500 Heart rate 60 /min Tosha Aguirre MD Work Phone: [facility] 11-20-2023 09:40-0500 Systolic blood pressure 126 mm[Hg] Tosha Aguirre MD Work Phone: [facility] 05-23-2022 12:30-0400 Body height 187.96 cm Raven Prosper Other [facility] Other 05-23-2022 12:30-0400 Body mass index (BMI) [Ratio] 26.32 kg/m2 Raven Prosper Other [facility] Other 05-23-2022 12:30-0400 Body temperature 97 [degF] Raven Prosper Other [facility] Other 05-23-2022 12:30-0400 Body weight 92.99 kg Raven Orantesrenetta Other [facility] Other 05-23-2022 12:30-0400 Diastolic blood pressure 46 mm[Hg] Raven Cheng Other [facility] Other 05-23-2022 12:30-0400 SaO2% (BldA) [Mass fraction] 97 % Raven Oranteso Other [facility] Other 05-23-2022 12:30-0400 Systolic blood pressure 110 mm[Hg] Raven Oranteso Other [facility] Other 02-21-2022 12:45-0400 Body height 187.96 cm Raven Oranteso Other [facility] Other 02-21-2022 12:45-0400 Body temperature 97.2 [degF] Raven Oranteso Other [facility] Other 02-21-2022 12:45-0400 Diastolic blood pressure 60 mm[Hg] Raven Oranteso Other [facility] Other 02-21-2022 12:45-0400 SaO2% (BldA) [Mass fraction] 99 % Raven Cheng Other [facility] Other 02-21-2022 12:45-0400 Systolic blood pressure 138 mm[Hg] Raven Oranteso Other [facility] Other 12-28-2021 11:45-0400 Body height 187.96 cm Blake Millard Other [facility] Other 12-28-2021 11:45-0400 Body mass index (BMI) [Ratio] 26.32 kg/m2 Blake Millard Other [facility] Other 12-28-2021 11:45-0400 Body temperature 96.6 [degF] Blake Millard Other [facility] Other 12-28-2021 11:45-0400 Body weight 92.99 kg Blake Millard Other [facility] Other 12-28-2021 11:45-0400 Diastolic blood pressure 70 mm[Hg] Blake Millard Other [facility] Other 12-28-2021 11:45-0400 SaO2% (BldA) [Mass fraction] 97 % Blake Millard Other [facility] Other 12-28-2021 11:45-0400 Systolic blood pressure 118 mm[Hg] Blake Millard Other [facility] Other Encounters Encounter Date Encounter Type Care Provider Facility Start: 11-20-2023 Hema[employer]heet Tosha ernst MD Work Phone: [facility] Start: 11-20-2023 VTEX Tosha ernst MD Work Phone: [facility] Start: 11-20-2023 End: 11-20-2023 Office outpatient visit 25 minutes Tosha Aguirre MD Work Phone: [facility] Comment on above: Type 2 diabetes marbin itus with foot ulcer, with long-term current use of insulin ([facility]) (Primary Dx); Chronic atrial fibrillation, unspecified (I48.20); Unspecified mood [affective] disorder (F39); Other ventricular tachycardia (I47.29); 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 gangrene, with long-term current use of insulin ([facility]); Peripheral vascular disease, unspecified (I73.9); Dementia without behavioral disturbance, psychotic disturbance, mood disturbance, or anxiety, unspecified dementia severity, unspecified dementia type (CMS/HCC); Non-pressure chronic ulcer of other part of right foot with fat layer exposed (L97.512); Heart failure, unspecified HF chronicity, unspecified heart failure type ([facility]); 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; surveillance dual rate officer current use of anticoagulant; Advanced age; Gait disturbance; Essential (primary) hypertension ([facility]); Urinary incontinence, unspecified type; Other cerebral infarction due to occlusion or stenosis of small artery ([facility]); DM type 2 with diabetic peripheral neuropathy ([facility]) Start: 02-24-2023 End: 02-25-[address] [...] 05-23-2022 End: 05-23-2022 ambulatory Raven Cheng Other [facility] Other Start: 05-23-2022 Office outpatient vi sit [...] 02-21-2022 End: 02-21-2022 ambulatory Raven Cheng Other [facility] Other Start: 02-21-2022 Follow-up encounter [facility] Start: 02-21-2022 End: 02-21-2022 Patient encounter procedure MD Blake Millard Work Phone: [facility] Start: 12-28-2021 End: 12-28-2021 ambulatory Blake Millard Other [facility] Other Start: 12-28-2021 Office outpatient ne w 45 minutes Blake Millard [facility] V[facility] Surgery Plan of Treatment Date Care Activity Detail Author Start: 02-19-2024 End: 02-19-2024 Patient encounter procedure 02/19/2024 10:30 AM EDT Office Visit [facility] [address] [place] [address] Tosha Aguirre MD [address] [place], [place] [id number] [facility] Start: 01-17-2024 Hemoglobin A1c measurement Diabetes: Hemoglobin A1C [facility] Start: 11-20-2023 End: 11-20-2023 Patient encounter procedure 11/20/2023 9:30 AM EST Office Visit [facility] [address] [place] [id number] Tosha Aguirre MD [address] [place] [address] 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 (Primary Dx); Other [...] scan of lower limb veins venous duplex [facility] Start: 1945 Glaucoma screening Diabetes: R etinopathy Screening [facility] Start: 1935 Medicare Annual Well ness (AWV) Medicare Annual Wellness (AWV) [facility] Immunizations Immunization Date Immunization Notes Care Provider Fa cility 09-05-2023 Pneumococcal Conjuga te PCV 20 Tosha Aguirre MD Work Phone: [facility] 07-21-2023 Influenza, High-dose Seasonal, Quadrivalent, Preservative Free Tosha Aguirre MD Work Phone: [facility] 08-02-2022 Influenza, High-dose Seasonal, Quadrivalent, Preservative Free Tosha Aguirre MD Work Phone: [facility] 11-22-2021 influenza, high dose seasonal, preservative-free Tosha Aguirre MD Work Phone: [facility] 09-11-2020 Influenza, High-dose Seasonal, Quadrivalent, Preservative Free Tosha Aguirre MD Work Phone: [facility] 09-05-2019 influenza, high dose seasonal, preservative-free Tosha Aguirre MD Work Phone: [facility] 09-12-2017 influenza, high dose seasonal, preservative-free Tosha Aguirre MD Work Phone: [facility] Payers Date Payer Category Payer Unknown AARP AARP [id number] 2022-Present [address] [place] [address] [id number] 2002 Medicare MEDICARE MEDICAR E PART B [id number] 2002-Present [address] [address] [place] [address] Medicare [id number] 1959 Medicare [id number] 1959 Unknown [id number] 1937 Unknown [id number] [id number]3 1937 Unknown [id number] 2.16.840.1.014603.3.579.2.593 1937 Unknown [id number] 2.16.840.1.778958.3.579.2.593 1937 Unknown [id number] 2.16.840.1.860449.3.579.2.593 1937 Unknown [id number] 2.16.840.1.474342.3.579.2.593 1937 Unknown [id number] 2.16.840.1.695111.3.579.2.593 1937 Unknown [id number] 2.16.840.1.186204.3.579.2.593 1937 Unknown [id number] 2.16.840.1.818875.3.579.2.593 1937 Unknown [id number] 2.16.840.1.288006.3.579.2.593 1937 Unknown [id number] 2.16.840.1.861907.3.579.2.593 1937 Unknown [id number] 2.16.840.1.523573.3.579.2.593 1937 Unknown [id number] 2.16.840.1.208387.3.579.2.593 1937 Unknown [id number] 2.16.840.1.244199.3.579.2.593 1937 Unknown [id number] 2.16.840.1.501987.3.579.2.593 1937 Unknown [id number] 2.16.840.1.762185.3.579.2.593 1937 Unknown [id number] 2.16.840.1.583070.3.579.2.593 Self-pay Self Pay [id number] Social History Date Type Detail Facility Tobacco smoking status NHIS Unknown if ever smoked [facility] Other Start: 1935 Sex Assigned At Male [facility] Start: 11-20-2023 Sex [address] [facility] Other Tobacco smoking status NHIS Tobacco smoking [...] issues. HPI: Pt is a resident of [facility]. He is currently seeing wound [...] ulcer, with long-term current use of insulin ([facility]) sees wound care 2. Chronic atrial fibrillation, unspecified (I48.20) heart rate is controlled. Pt is no seeing cardiology, they dismissed him due to other comorbidities, emphasis on comfort 3. Unspecified mood [affective] disorder (F39) 4. Other ventricular tachycardia (I47.29) denies palpitations 5. 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 gangrene, with long-term current use of insulin ([facility]) eye exam 6. Peripheral vascular disease, unspecified (I73.9) sees wound care 7. Dementia without behavioral disturbance, psychotic disturbance, mood disturbance, or anxiety, unspecified dementia severity, unspecified dementia type ([facility]) 8. Non-pressure chronic ulcer of other part of right foot with fat layer exposed (L97.512) 9. Heart failure, unspecified HF chronicity, unspecified heart failure type ([facility]) no sign of CHF at this time, stable 10. 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 11. surveillance dual rate officer current use of anticoagulant 12. Advanced age emphasis on comfort, Resides at [facility] 13. Gait disturbance walking with a cane 14. Essential (primary) hypertension (CMS/HCC) 15. Urinary incontinence, unspecified type 16. Other cerebral infarction due to occlusion or stenosis of small artery ([facility]) 17. DM type 2 with diabetic peripheral neuropathy ([facility]) I will follow up on his DNR paperwork. Encouraged eye exam Hgba1c is 7.0 was 6.8 Pt wants to be kept comfortable at [facility] and no hospitalization per and daughter. His answers most of his questions. They have been 65 yrs this week. Follow up in 3 months with his . Spent over 30 min problem focused care with over 50% in counseling documented in this encounter [facility] Clinical Note 07-22-2022 Note Date [...] authenticated by: MIRIAM OTERO Date: 2022-07-22 11:18 [facility] Evaluation note 05-23-2022 Note Date & Type [...] basis should he deteriorate in any way. [facility] Other Clinical Note 04-01-2022 Note Date & [...] by: DESMOND BOSTON Date: 2022-04-01 18:12 [facility] Evaluation note 02-21-2022 Note Date & [...] understanding, agrees this plan, deny any questions. [facility] Other Evaluation note 12-28-2021 Note Date & [...] him back once that study is accomplished. [facility] Other Evaluation note Note Date & Type Note Facility Evaluation note No assessment information availa [facility] Work Phone: Evaluation note Note [...] cataract removal left Hospitalization History see above [facility] Other Chief Complaint and Reason for Visit [...] PHYSICIAN NO FAMILY Primary Care Provider Active Machine Pecan Gatherer Relationship Specialty Start Date End Date Tosha Aguirre MD [address] [facility] [address] PCP - ACO Reach 03/09/23 Tosha Aguirre MD [address] [place] [address] PCP - General Family Medicine 02/21/23 Rosina Valdez, RN [address] [place] [address] Registered Nurse Family Medicine 10/31/23 Dinora Stroud LSW [employer] [facility] 11/17/23 Machine Pecan Gatherer Relationship Specialty Start Date End Date Tosha Aguirre MD [address] [facility] [address] PCP - ACO Reach 03/09/23 Tosha Aguirre MD [address] [facility] [address] PCP - General Family Medicine 02/21/23 Rosina Valdez, RN [address] [facility] [address] Registered Nurse Family Medicine 10/31/23 Dinora Stroud [facility] [employer] [facility] 11/17/23 Goals (unrecognized section and content) Goals may be documented in a n alternate sectionNo InformationNo InformationNo InformationNo Information (unrecognized sect ion and content) No Status Records FoundNo Status Records Found INFORMATION SOURCE (unrecogn ized section and content) DATE CREATED AUTHOR 03/11/2022 [facility] DATE CREATED AUTHOR 'S ORGANIZ ATION [...] BE BASED ON THE PRIMARY CLINICAL RECORDS. [facility]. provides no warranty or guarantee of the accuracy or completeness of information in this document.
== END 2024-06-28 10:51 | disposition home or self-care (01) ==
LOC: WC 10:50
PROVIDERS: PCP Podiatrist Foot & Ankle Surgery; Visit Provider Podiatrist Foot & Ankle Surgery
DX: E11.621 Type 2 diabetes mellitus with foot ulcer (principal); L97.411 Non-pressure chronic ulcer of right heel and midfoot limited to breakdown of skin; I87.312 Chronic venous hypertension (idiopathic) with ulcer of left lower extremity; L97.828 Non-pressure chronic ulcer of other part of left lower leg with other specified severity; L97.328 Non-pressure chronic ulcer of left ankle with other specified severity
CPT/HCPCS: G0463

== ENCOUNTER 2024-07-19 10:18 | Outpatient (OUT) | payer MEDICARE, SELFPAY ==
--- OUTSIDE RECORDS SUMMARY | 2024-07-19 10:38 | XMS_ITS | CCD ---
Author Organization [facility] CliniSyid Care Team Providers Care Shear Operator Name Role Phone MD Blake Millard Attending [...] JOLLEY Admitting Unavailable Tosha Aguirre MD Unavailable [phone] Tosha Aguirre MD Primary Care Provider Courtney COPE, Rosina Unavailable Unavailable Dinora Sherwood Unavailable Unavailable Allergies Allergy Classification Reported Allergen(s) Allergy Type Date of Onset Reaction(s) Facility (1 source) Sulfamethoxazole / Trimethoprim Drug Allergy 2 [facility] Repository (2 sources) Sulfamethoxazole / Trimethoprim Drug [facility] 2 [facility] Medications Current Medications Medication Drug [...] mg extended release oral capsule (5 sources) J-apjdlq-V-aspartate Receptor Antagonist Memantine HCl ER 28 MG [...] before bedtime. 0 Active polyethylene glycol 3350 68224 mg powder for oral solution (6 sources) [...] source) Long-term current use of anticoagulant; Translations: [residential (current) use of anticoagulants] 11-20-2023 Episodic Other [...] venous duplex LE BI[place] venous duplex [facility] [place] [address] Ultrasound Report Signed Patient: Tayo Uribe MR#: [id number] 39 : 1935 Acct:[id number] Age/Sex: 86 / M ADM Date: 02/21/22 Loc: [facility] Room: Type: [facility] [...] Tigre Dorsey MD02/23/2022 1:03 PM Dictation Location: [place] [address] Tech: Sophia Thomas Transcribed By: JHON 02/23/22 1303 Dictated By: Tigre Dorsey MD 02/23/22 1302 Signed By: 02/23/22 1303 [facility] Vital Signs Date Time Vital Sign Value Performing Clinician Facility 11-20-2023 09:40-0500 Body weight 97.43 kg Tosha Aguirre MD Work Phone: [facility] 11-20-2023 09:40-0500 Diastolic blood pressure 58 mm[Hg] Tosha Aguirre MD Work Phone: [facility] 11-20-2023 09:40-0500 Heart rate 60 /min Tosha Aguirre MD Work Phone: [facility] 11-20-2023 09:40-0500 Systolic blood pressure 126 mm[Hg] Tosha Aguirre MD Work Phone: [facility] 05-23-2022 12:30-0400 Body height 187.96 cm Raven Prosper Other [facility] Other 05-23-2022 12:30-0400 Body mass index (BMI) [Ratio] 26.32 kg/m2 Raven Prosper Other [facility] Other 05-23-2022 12:30-0400 Body temperature 97 [degF] Raven Prosper Other [facility] Other 05-23-2022 12:30-0400 Body weight 92.99 kg Raven Orantesrenetta Other [facility] Other 05-23-2022 12:30-0400 Diastolic blood pressure 46 mm[Hg] Raven Cheng Other [facility] Other 05-23-2022 12:30-0400 SaO2% (BldA) [Mass fraction] 97 % Raven Oranteso Other [facility] Other 05-23-2022 12:30-0400 Systolic blood pressure 110 mm[Hg] Raven Oranteso Other [facility] Other 02-21-2022 12:45-0400 Body height 187.96 cm Raven Oranteso Other [facility] Other 02-21-2022 12:45-0400 Body temperature 97.2 [degF] Raven Oranteso Other [facility] Other 02-21-2022 12:45-0400 Diastolic blood pressure 60 mm[Hg] Raven Oranteso Other [facility] Other 02-21-2022 12:45-0400 SaO2% (BldA) [Mass fraction] 99 % Raven Cheng Other [facility] Other 02-21-2022 12:45-0400 Systolic blood pressure 138 mm[Hg] Raven Oranteso Other [facility] Other 12-28-2021 11:45-0400 Body height 187.96 cm Blake Millard Other [facility] Other 12-28-2021 11:45-0400 Body mass index (BMI) [Ratio] 26.32 kg/m2 Blake Millard Other [facility] Other 12-28-2021 11:45-0400 Body temperature 96.6 [degF] Blake Millard Other [facility] Other 12-28-2021 11:45-0400 Body weight 92.99 kg Blake Millard Other [facility] Other 12-28-2021 11:45-0400 Diastolic blood pressure 70 mm[Hg] Blake Millard Other [facility] Other 12-28-2021 11:45-0400 SaO2% (BldA) [Mass fraction] 97 % Blake Millard Other [facility] Other 12-28-2021 11:45-0400 Systolic blood pressure 118 mm[Hg] Blake Millard Other [facility] Other Encounters Encounter Date Encounter Type Care Provider Facility Start: 11-20-2023 Driverdoheet Tosha ernst MD Work Phone: [facility] Start: 11-20-2023 StyleSeat Tosha ernst MD Work Phone: [facility] Start: 11-20-2023 End: 11-20-2023 Office outpatient visit 25 minutes Tosha Aguirre MD Work Phone: [facility] Comment on above: Type 2 diabetes marbin itus with foot ulcer, with long-term current use of insulin ([facility]) (Primary Dx); Chronic atrial fibrillation, unspecified (I48.20); Unspecified mood [affective] disorder (F39); Other ventricular tachycardia (I47.29); 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 gangrene, with long-term current use of insulin ([facility]); Peripheral vascular disease, unspecified (I73.9); Dementia without behavioral disturbance, psychotic disturbance, mood disturbance, or anxiety, unspecified dementia severity, unspecified dementia type (CMS/HCC); Non-pressure chronic ulcer of other part of right foot with fat layer exposed (L97.512); Heart failure, unspecified HF chronicity, unspecified heart failure type ([facility]); 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; terminal supervisor current use of anticoagulant; Advanced age; Gait disturbance; Essential (primary) hypertension ([facility]); Urinary incontinence, unspecified type; Other cerebral infarction due to occlusion or stenosis of small artery ([facility]); DM type 2 with diabetic peripheral neuropathy ([facility]) Start: 02-24-2023 End: 02-25-[address] MARIXA [...] 05-23-2022 End: 05-23-2022 ambulatory Raven Cheng Other [facility] Other Start: 05-23-2022 Office outpatient vi sit [...] 02-21-2022 End: 02-21-2022 ambulatory Raven Cheng Other [facility] Other Start: 02-21-2022 Follow-up encounter [facility] Start: 02-21-2022 End: 02-21-2022 Patient encounter procedure MD Blake Millard Work Phone: [facility] Start: 12-28-2021 End: 12-28-2021 ambulatory Blake Millard Other [facility] Other Start: 12-28-2021 Office outpatient ne w 45 minutes Blake Millard [facility] Plan of Treatment Date Care Activity Detail Author Start: 02-19-2024 End: 02-19-2024 Patient encounter procedure 02/19/2024 10:30 AM EDT Office Visit [facility] [address] [place] [address] Tosha Aguirre MD [address] [place], [place] [id number] [facility] Start: 01-17-2024 Hemoglobin A1c measurement Diabetes: Hemoglobin A1C [facility] Start: 11-20-2023 End: 11-20-2023 Patient encounter procedure 11/20/2023 9:30 AM EST Office Visit [facility] [address] [place] [id number] Tosha Aguirre MD [address] [place] [address] 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 (Primary Dx); Other [...] scan of lower limb veins venous duplex [facility] Start: 1945 Glaucoma screening Diabetes: R etinopathy Screening [facility] Start: 1935 Medicare Annual Well ness (AWV) Medicare Annual Wellness (AWV) [facility] Immunizations Immunization Date Immunization Notes Care Provider Fa cility 09-05-2023 Pneumococcal Conjuga te PCV 20 Tosha Aguirre MD Work Phone: [facility] 07-21-2023 Influenza, High-dose Seasonal, Quadrivalent, Preservative Free Tosha Aguirre MD Work Phone: [facility] 08-02-2022 Influenza, High-dose Seasonal, Quadrivalent, Preservative Free Tosha Aguirre MD Work Phone: [facility] 11-22-2021 influenza, high dose seasonal, preservative-free Tosha Aguirre MD Work Phone: [facility] 09-11-2020 Influenza, High-dose Seasonal, Quadrivalent, Preservative Free Tosha Aguirre MD Work Phone: [facility] 09-05-2019 influenza, high dose seasonal, preservative-free Tosha Aguirre MD Work Phone: [facility] 09-12-2017 influenza, high dose seasonal, preservative-free Tosha Aguirre MD Work Phone: [facility] Payers Date Payer Category Payer Unknown AARP AARP [id number] 2022-Present [address] [place] [address] [id number] 2002 Medicare MEDICARE MEDICAR E PART B [id number] 2002-Present [address] [address] [place] [address] Medicare [id number] 1959 Medicare [id number] 1959 Unknown [id number] 1937 Unknown [id number] [id number] 1937 Unknown [id number] 2.16.840.1.772783.3.579.2.593 1937 Unknown [id number] 2.16.840.1.414870.3.579.2.593 1937 Unknown [id number] 2.16.840.1.843601.3.579.2.593 1937 Unknown [id number] 2.16.840.1.077415.3.579.2.593 1937 Unknown [id number] 2.16.840.1.639229.3.579.2.593 1937 Unknown [id number] 2.16.840.1.210347.3.579.2.593 1937 Unknown [id number] 2.16.840.1.445584.3.579.2.593 1937 Unknown [id number] 2.16.840.1.594756.3.579.2.593 1937 Unknown [id number] 2.16.840.1.692744.3.579.2.593 1937 Unknown [id number] 2.16.840.1.508096.3.579.2.593 1937 Unknown [id number] 2.16.840.1.988893.3.579.2.593 1937 Unknown [id number] 2.16.840.1.151753.3.579.2.593 1937 Unknown [id number] 2.16.840.1.671199.3.579.2.593 1937 Unknown [id number] 2.16.840.1.429854.3.579.2.593 1937 Unknown [id number] 2.16.840.1.239273.3.579.2.593 Self-pay Self Pay [id number] Social History Date Type Detail Facility Tobacco smoking status NHIS Unknown if ever smoked [facility] Other Start: 1935 Sex Assigned At Male [facility] Start: 11-20-2023 Sex Assigned At [facility] Other Tobacco smoking status NHIS Tobacco smoking [...] issues. HPI: [facility] He is currently seeing wound [...] ulcer, with long-term current use of insulin ([facility]) sees wound care 2. Chronic atrial fibrillation, unspecified (I48.20) heart rate is controlled. Pt is no seeing cardiology, they dismissed him due to other comorbidities, emphasis on comfort 3. Unspecified mood [affective] disorder (F39) 4. Other ventricular tachycardia (I47.29) denies palpitations 5. 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 gangrene, with long-term current use of insulin ([facility]) eye exam 6. Peripheral vascular disease, unspecified (I73.9) sees wound care 7. Dementia without behavioral disturbance, psychotic disturbance, mood disturbance, or anxiety, unspecified dementia severity, unspecified dementia type ([facility]) 8. Non-pressure chronic ulcer of other part of right foot with fat layer exposed (L97.512) 9. Heart failure, unspecified HF chronicity, unspecified heart failure type ([facility]) no sign of CHF at this time, stable 10. 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 11. residential current use of anticoagulant 12. Advanced age emphasis on comfort, Resides at [facility] 13. Gait disturbance walking with a cane 14. Essential (primary) hypertension (CMS/HCC) 15. Urinary incontinence, unspecified type 16. Other cerebral infarction due to occlusion or stenosis of small artery ([facility]) 17. DM type 2 with diabetic peripheral neuropathy ([facility]) I will follow up on his DNR paperwork. Encouraged eye exam Hgba1c is 7.0 was 6.8 Pt wants to be kept comfortable at [facility] and no hospitalization per and daughter. His answers most of his questions. They have been 65 yrs this week. Follow up in 3 months with his . Spent over 30 min problem focused care with over 50% in counseling documented in this encounter [facility] Clinical Note 07-22-2022 Note Date & Type [...] authenticated by: MIRIAM OTERO Date: 2022-07-22 11:18 [facility] Evaluation note 05-23-2022 Note Date & Type [...] basis should he deteriorate in any way. [facility] Other Clinical Note 04-01-2022 Note Date & [...] by: DESMOND BOSTON Date: 2022-04-01 18:12 [facility] Evaluation note 02-21-2022 Note Date & [...] understanding, agrees this plan, deny any questions. [facility] Other Evaluation note 12-28-2021 Note Date & [...] him back once that study is accomplished. [facility] Other Evaluation note Note Date & Type Note Facility Evaluation note No assessment information availa [facility] Work Phone: Evaluation note Note Date [...] unspecified heart failure type (CMS/HCC) 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 residential current use of anticoagulant Advanced age Gait [...] cataract removal left Hospitalization History see above [facility] Other Chief Complaint and Reason for Visit [...] PHYSICIAN NO FAMILY Primary Care Provider Active Shear Operator Relationship Specialty Start Date End Date Tosha Aguirre MD [address] [facility] [address] PCP - ACO Reach 03/09/23 Tosha Aguirre MD [address] [place] [address] PCP - General Family Medicine 02/21/23 Rosina Valdez, RN [address] [place] [address] Registered Nurse Family Medicine 10/31/23 Dinora Stroud LSW New Accounts Representative [facility] Medicine 11/17/23 Shear Operator Relationship Specialty Start Date End Date Tosha Aguirre MD [address] [facility] [address] PCP - ACO Reach 03/09/23 Tosha Aguirre MD [address] [facility] [address] PCP - General Family Medicine 02/21/23 Rosina Valdez, RN [address] [place] [address] Registered Nurse Family Medicine 10/31/23 Dinora Stroud [facility] New Accounts Representative [facility] Medicine 11/17/23 Goals (unrecognized section and content) Goals may be documented in a n alternate sectionNo InformationNo InformationNo InformationNo Information (unrecognized sect ion and content) No Status Records FoundNo Status Records Found INFORMATION SOURCE (unrecogn ized section and content) DATE CREATED AUTHOR 03/11/2022 [facility] DATE CREATED AUTHOR 'S ORGANIZ ATION [...] BE BASED ON THE PRIMARY CLINICAL RECORDS. [facility] [employer] [facility]. provides no warranty or guarantee of the accuracy or completeness of information in this document.
== END 2024-07-19 10:19 | disposition home or self-care (01) ==
LOC: WC 10:18
PROVIDERS: PCP Podiatrist Foot & Ankle Surgery; Visit Provider Podiatrist Foot & Ankle Surgery
DX: E11.621 Type 2 diabetes mellitus with foot ulcer (principal); L97.411 Non-pressure chronic ulcer of right heel and midfoot limited to breakdown of skin; L97.828 Non-pressure chronic ulcer of other part of left lower leg with other specified severity; I87.313 Chronic venous hypertension (idiopathic) with ulcer of bilateral lower extremity; L97.811 Non-pressure chronic ulcer of other part of right lower leg limited to breakdown of skin
CPT/HCPCS: 11042; 29580

== ENCOUNTER 2024-07-26 10:46 | Outpatient (OUT) | payer MEDICARE, SELFPAY ==
--- OUTSIDE RECORDS SUMMARY | 2024-07-26 10:49 | XMS_ITS | CCD ---
Author Organization [facility] CliniSynd Care Team Providers Care [employer] Consultant Name Role Phone MD Blake Millard Attending [...] DR MARIXA Lewis Primary Care Unavailable TEJAS JLOLEY Attending Unavailable TEJAS JOLLEY Admitting Unavailable CORDERO [...] source) Sulfamethoxazole / Trimethoprim Drug Allergy 2 [facility] [place] Repository (2 sources) [facility] Medications Current Medications Medication Drug [...] mg extended release oral capsule (5 sources) R-rmficu-O-aspartate Receptor Antagonist Memantine HCl ER 28 MG [...] before bedtime. 0 Active polyethylene glycol 3350 45433 mg powder for oral solution (6 sources) [...] source) Long-term current use of anticoagulant; Translations: [oysterman (current) use of anticoagulants] 11-20-2023 Episodic Other [...] venous duplex LE BIon US venous duplex [facility] [place] [address] Ultrasound Report Signed Patient: Tayo Uribe MR#: [id number] 39 : 1935 Acct:[id number] Age/Sex: 86 / M ADM Date: 02/21/22 Loc: [facility] Room: Type: [facility] Attending Dr: Blake Millard MD [...] Tigre Dorsey MD02/23/2022 1:03 PM Dictation Location: [place] [address] Tech: Sophia Thomas Transcribed By: JHON 02/23/22 1303 Dictated By: Tigre Dorsey MD 02/23/22 1302 Signed By: 02/23/22 1303 [facility] Vital Signs Date Time Vital Sign Value Performing Clinician Facility 11-20-2023 09:40-0500 Body weight 97.43 kg Tosha Aguirre MD Work Phone: [facility] 11-20-2023 09:40-0500 Diastolic blood pressure 58 mm[Hg] Tosha Aguirre MD Work Phone: [facility] 11-20-2023 09:40-0500 Heart rate 60 /min Tosha Aguirre MD Work Phone: [facility] 11-20-2023 09:40-0500 Systolic blood pressure 126 mm[Hg] Tosha Aguirre MD Work Phone: [facility] 05-23-2022 12:30-0400 Body height 187.96 cm Raven Prosper Other [facility] Other 05-23-2022 12:30-0400 Body mass index (BMI) [Ratio] 26.32 kg/m2 Raven Prosper Other [facility] Other 05-23-2022 12:30-0400 Body temperature 97 [degF] Raven Prosper Other [facility] Other 05-23-2022 12:30-0400 Body weight 92.99 kg Raven Orantesrenetta Other [facility] Other 05-23-2022 12:30-0400 Diastolic blood pressure 46 mm[Hg] Raven Cheng Other [facility] Other 05-23-2022 12:30-0400 SaO2% (BldA) [Mass fraction] 97 % Raven Oranteso Other [facility] Other 05-23-2022 12:30-0400 Systolic blood pressure 110 mm[Hg] Raven Oranteso Other [facility] Other 02-21-2022 12:45-0400 Body height 187.96 cm Raven Oranteso Other [facility] Other 02-21-2022 12:45-0400 Body temperature 97.2 [degF] Raven Oranteso Other [facility] Other 02-21-2022 12:45-0400 Diastolic blood pressure 60 mm[Hg] Raven Oranteso Other [facility] Other 02-21-2022 12:45-0400 SaO2% (BldA) [Mass fraction] 99 % Raven Cheng Other [facility] Other 02-21-2022 12:45-0400 Systolic blood pressure 138 mm[Hg] Raven Oranteso Other [facility] Other 12-28-2021 11:45-0400 Body height 187.96 cm Blake Millard Other [facility] Other 12-28-2021 11:45-0400 Body mass index (BMI) [Ratio] 26.32 kg/m2 Blake Millard Other [facility] Other 12-28-2021 11:45-0400 Body temperature 96.6 [degF] Blake Millard Other [facility] Other 12-28-2021 11:45-0400 Body weight 92.99 kg Blake Millard Other [facility] Other 12-28-2021 11:45-0400 Diastolic blood pressure 70 mm[Hg] Blake Millard Other [facility] Other 12-28-2021 11:45-0400 SaO2% (BldA) [Mass fraction] 97 % Blake Millard Other [facility] Other 12-28-2021 11:45-0400 Systolic blood pressure 118 mm[Hg] Blake Millard Other [facility] Other Encounters Encounter Date Encounter Type Care Provider Facility Start: 11-20-2023 [employer] Tosha ernst MD Work Phone: [facility] Start: 11-20-2023 [employer] Tosha ernst MD Work Phone: [facility] Start: 11-20-2023 End: 11-20-2023 Office outpatient visit 25 minutes Tosha Aguirre MD Work Phone: [facility] Comment on above: Type 2 diabetes marbin itus with foot ulcer, with long-term current use of insulin ([facility]) (Primary Dx); Chronic atrial fibrillation, unspecified (I48.20); Unspecified mood [affective] disorder (F39); Other ventricular tachycardia (I47.29); 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 gangrene, with long-term current use of insulin ([facility]); Peripheral vascular disease, unspecified (I73.9); Dementia without behavioral disturbance, psychotic disturbance, mood disturbance, or anxiety, unspecified dementia severity, unspecified dementia type (CMS/HCC); Non-pressure chronic ulcer of other part of right foot with fat layer exposed (L97.512); Heart failure, unspecified HF chronicity, unspecified heart failure type ([facility]); 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; residential current use of anticoagulant; Advanced age; Gait disturbance; Essential (primary) hypertension ([facility]); Urinary incontinence, unspecified type; Other cerebral infarction due to occlusion or stenosis of small artery ([facility]); DM type 2 with diabetic peripheral neuropathy ([facility]) Start: 02-24-2023 End: 02-25-2023 ambulatory [...] 05-23-2022 End: 05-23-2022 ambulatory Raven Cheng Other [facility] Other Start: 05-23-2022 Office outpatient vi sit [...] 02-21-2022 End: 02-21-2022 ambulatory Raven Cheng Other [facility] Other Start: 02-21-2022 Follow-up encounter [facility] Start: 02-21-2022 End: 02-21-2022 Patient encounter procedure MD Blake Millard Work Phone: [facility] Start: 12-28-2021 End: 12-28-2021 ambulatory Blake Milalrd Other [facility] Other Start: 12-28-2021 Office outpatient ne w 45 minutes Blake Millard [facility] V[facility] Surgery Plan of Treatment Date Care Activity Detail Author Start: 02-19-2024 End: 02-19-2024 Patient encounter procedure 02/19/2024 10:30 AM EDT Office Visit [facility] [address] [place] [address] Tosha Aguirre MD [address] [place], [place] [id number] [facility] Start: 01-17-2024 Hemoglobin A1c measurement Diabetes: Hemoglobin A1C [facility] Start: 11-20-2023 End: 11-20-2023 Patient encounter procedure 11/20/2023 9:30 AM EST Office Visit [facility] [address] [place] [id number] Tosha Aguirre MD [address] [place] [address] 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 (Primary Dx); Other [...] scan of lower limb veins venous duplex [facility] Start: 1945 Glaucoma screening Diabetes: R etinopathy Screening [facility] Start: 1935 Medicare Annual Well ness (AWV) Medicare Annual Wellness (AWV) [facility] Immunizations Immunization Date Immunization Notes Care Provider Fa cility 09-05-2023 Pneumococcal Conjuga te PCV 20 Tosha Aguirre MD Work Phone: [facility] 07-21-2023 Influenza, High-dose Seasonal, Quadrivalent, Preservative Free Tosha Aguirre MD Work Phone: [facility] 08-02-2022 Influenza, High-dose Seasonal, Quadrivalent, Preservative Free Tosha Aguirre MD Work Phone: [facility] 11-22-2021 influenza, high dose seasonal, preservative-free Tosha Aguirre MD Work Phone: [facility] 09-11-2020 Influenza, High-dose Seasonal, Quadrivalent, Preservative Free Tosha Aguirre MD Work Phone: [facility] 09-05-2019 influenza, high dose seasonal, preservative-free Tosha Aguirre MD Work Phone: [facility] 09-12-2017 influenza, high dose seasonal, preservative-free Tosha Aguirre MD Work Phone: [facility] Payers Date Payer Category Payer Unknown AARP AARP [id number] 2022-Present [address] [place] [address] [id number] 2002 Medicare MEDICARE MEDICAR E PART B [id number] 2002-Present [address] [address] [place] [address] Medicare [id number] 1959 Medicare [id number] 1959 Unknown [id number] 1937 Unknown [id number] [id number]3 1937 Unknown [id number] 2.16.840.1.565284.3.579.2.593 1937 Unknown [id number] 2.16.840.1.823368.3.579.2.593 1937 Unknown [id number] 2.16.840.1.605177.3.579.2.593 1937 Unknown [id number] 2.16.840.1.156299.3.579.2.593 1937 Unknown [id number] 2.16.840.1.554863.3.579.2.593 1937 Unknown [id number] 2.16.840.1.459613.3.579.2.593 1937 Unknown [id number] 2.16.840.1.515420.3.579.2.593 1937 Unknown [id number] 2.16.840.1.973300.3.579.2.593 1937 Unknown [id number] 2.16.840.1.725242.3.579.2.593 1937 Unknown [id number] 2.16.840.1.734906.3.579.2.593 1937 Unknown [id number] 2.16.840.1.765864.3.579.2.593 1937 Unknown [id number] 2.16.840.1.756815.3.579.2.593 1937 Unknown [id number] 2.16.840.1.492115.3.579.2.593 1937 Unknown [id number] 2.16.840.1.318177.3.579.2.593 1937 Unknown [id number] 2.16.840.1.604745.3.579.2.593 Self-pay Self Pay [id number] Social History Date Type Detail Facility Tobacco smoking status NHIS Unknown if ever smoked [facility] Other Start: 1935 [facility] Assigned At [facility] Start: 11-20-2023 Sex Assigned At [facility] Other Tobacco smoking status NHIS Tobacco smoking [...] issues. HPI: Pt is a resident of [facility]. He is currently seeing wound care. Pt [...] ulcer, with long-term current use of insulin ([facility]) sees wound care 2. Chronic atrial fibrillation, unspecified (I48.20) heart rate is controlled. Pt is no seeing cardiology, they dismissed him due to other comorbidities, emphasis on comfort 3. Unspecified mood [affective] disorder (F39) 4. Other ventricular tachycardia (I47.29) denies palpitations 5. 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 gangrene, with long-term current use of insulin ([facility]) eye exam 6. Peripheral vascular disease, unspecified (I73.9) sees wound care 7. Dementia without behavioral disturbance, psychotic disturbance, mood disturbance, or anxiety, unspecified dementia severity, unspecified dementia type ([facility]) 8. Non-pressure chronic ulcer of other part of right foot with fat layer exposed (L97.512) 9. Heart failure, unspecified HF chronicity, unspecified heart failure type ([facility]) no sign of CHF at this time, stable 10. 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 11. residential current use of anticoagulant 12. Advanced age emphasis on comfort, Resides at [facility] 13. Gait disturbance walking with a cane 14. Essential (primary) hypertension (CMS/HCC) 15. Urinary incontinence, unspecified type 16. Other cerebral infarction due to occlusion or stenosis of small artery ([facility]) 17. DM type 2 with diabetic peripheral neuropathy ([facility]) I will follow up on his DNR paperwork. Encouraged eye exam Hgba1c is 7.0 was 6.8 Pt wants to be kept comfortable at [facility] and no hospitalization per and daughter. His answers most of his questions. They have been 65 yrs this week. Follow up in 3 months with his . Spent over 30 min problem focused care with over 50% in counseling documented in this encounter [facility] Clinical Note 07-22-2022 Note [...] authenticated by: MIRIAM OTERO Date: 2022-07-22 11:18 [facility] [place] Evaluation note 05-23-2022 Note Date & Type [...] basis should he deteriorate in any way. [facility] Other Clinical Note 04-01-2022 Note Date & [...] by: DESMOND BOSTON Date: 2022-04-01 18:12 [facility] Evaluation note 02-21-2022 Note Date & [...] understanding, agrees this plan, deny any questions. [facility] Other Evaluation note 12-28-2021 Note Date & [...] him back once that study is accomplished. [facility] Other Evaluation note Note Date & Type Note Facility Evaluation note No assessment information availa [facility] Work Phone: Evaluation note Note Date & [...] cataract removal left Hospitalization History see above [facility] Other Chief Complaint and Reason for Visit [...] PHYSICIAN NO FAMILY Primary Care Provider Active [employer] Consultant Relationship Specialty Start Date End Date Tosha Aguirre MD [address] [facility] [place] [address] PCP - ACO Reach 03/09/23 Tosha Aguirre MD [address] [facility] [place] [address] PCP - General Family Medicine 02/21/23 Rosina Valdez, RN [address] [facility] [place] [address] Registered Nurse Family Medicine 10/31/23 Dinora Stroud LSW [employer] [facility] 11/17/23 [employer] Consultant Relationship Specialty Start Date End Date Tosha Aguirre MD [address] [facility] [place] [address] PCP - ACO Reach 03/09/23 Tosha Aguirre MD [address] [facility] [place] [address] PCP - General Family Medicine 02/21/23 Rosina Valdez, RN [address] [facility] [place] [address] Registered Nurse Family Medicine 10/31/23 Dinora Stroud [facility] Computer [employer] Sched[employer] [facility] 11/17/23 Goals (unrecognized section and content) Goals may be documented in a n alternate sectionNo InformationNo InformationNo InformationNo Information (unrecognized sect ion and content) No Status Records FoundNo Status Records Found INFORMATION SOURCE (unrecogn ized section and content) DATE CREATED AUTHOR 03/11/2022 [facility] DATE CREATED AUTHOR 'S ORGANIZ ATION 02/25/2023 [...] BE BASED ON THE PRIMARY CLINICAL RECORDS. [facility]. provides no warranty or guarantee of the accuracy or completeness of information in this document.
== END 2024-07-26 10:47 | disposition home or self-care (01) ==
LOC: WC 10:47
PROVIDERS: PCP Podiatrist Foot & Ankle Surgery; Visit Provider Podiatrist Foot & Ankle Surgery
DX: E11.621 Type 2 diabetes mellitus with foot ulcer (principal); L97.411 Non-pressure chronic ulcer of right heel and midfoot limited to breakdown of skin; I87.313 Chronic venous hypertension (idiopathic) with ulcer of bilateral lower extremity; L97.328 Non-pressure chronic ulcer of left ankle with other specified severity; L97.821 Non-pressure chronic ulcer of other part of left lower leg limited to breakdown of skin; L97.811 Non-pressure chronic ulcer of other part of right lower leg limited to breakdown of skin
CPT/HCPCS: G0463

== ENCOUNTER 2024-08-07 15:42 | Outpatient (OUT) | payer MEDICARE, SELFPAY ==
--- OUTSIDE RECORDS SUMMARY | 2024-08-07 16:07 | XMS_ITS | CCD ---
Author Organization [facility] CliniSywv Care Team Providers Care Ceiling Installer Name Role Phone MD Blake Millard Attending [...] source) Sulfamethoxazole / Trimethoprim Drug Allergy 2 [facility] Repository (2 sources) [facility] Medications Current Medications Medication Drug Class(es) [...] mg extended release oral capsule (5 sources) B-icuyyg-H-aspartate Receptor Antagonist Memantine HCl ER 28 MG [...] before bedtime. 0 Active polyethylene glycol 3350 56838 mg powder for oral solution (6 sources) [...] source) Long-term current use of anticoagulant; Translations: [watermaster (current) use of anticoagulants] 11-20-2023 Episodic Other [...] venous duplex LE BIon US venous duplex [facility] [place] [address] Ultrasound Report Signed Patient: Tayo Uribe MR#: [id number] 39 : 1935 Acct:[id number] Age/Sex: 86 / M ADM Date: 02/21/22 Loc: [facility] Room: Type: [facility] Attending Dr: Blake Millard MD [...] Tigre Dorsey MD02/23/2022 1:03 PM Dictation Location: [place] [address] Tech: Sophia Thomas Transcribed By: JHON 02/23/22 1303 Dictated By: Tigre Dorsey MD 02/23/22 1302 Signed By: 02/23/22 1303 [facility] Vital Signs Date Time Vital Sign Value Performing Clinician Facility 11-20-2023 09:40-0500 Body weight 97.43 kg Tosha Aguirre MD Work Phone: [facility] 11-20-2023 09:40-0500 Diastolic blood pressure 58 mm[Hg] Tosha Aguirre MD Work Phone: [facility] 11-20-2023 09:40-0500 Heart rate 60 /min Tosha Aguirre MD Work Phone: [facility] 11-20-2023 09:40-0500 Systolic blood pressure 126 mm[Hg] Tosha Aguirre MD Work Phone: [facility] 05-23-2022 12:30-0400 Body height 187.96 cm Raven Prosper Other [facility] Other 05-23-2022 12:30-0400 Body mass index (BMI) [Ratio] 26.32 kg/m2 Raven Prosper Other [facility] 05-23-2022 12:30-0400 Body temperature 97 [degF] Raven Prosper Other [facility] Other 05-23-2022 12:30-0400 Body weight 92.99 kg Raven Orantesrenetta Other [facility] Other 05-23-2022 12:30-0400 Diastolic blood pressure 46 mm[Hg] Raven Cheng Other [facility] Other 05-23-2022 12:30-0400 SaO2% (BldA) [Mass fraction] 97 % Raven Oranteso Other [facility] Other 05-23-2022 12:30-0400 Systolic blood pressure 110 mm[Hg] Raven Oranteso Other [facility] Other 02-21-2022 12:45-0400 Body height 187.96 cm Raven Oranteso Other [facility] Other 02-21-2022 12:45-0400 Body temperature 97.2 [degF] Raven Oranteso Other [facility] Other 02-21-2022 12:45-0400 Diastolic blood pressure 60 mm[Hg] Raven Oranteso Other [facility] Other 02-21-2022 12:45-0400 SaO2% (BldA) [Mass fraction] 99 % Raven Cheng Other [facility] Other 02-21-2022 12:45-0400 Systolic blood pressure 138 mm[Hg] Raven Oranteso Other [facility] 12-28-2021 11:45-0400 Body height 187.96 cm Blake Millard Other [facility] Other 12-28-2021 11:45-0400 Body mass index (BMI) [Ratio] 26.32 kg/m2 Blake Millard Other [facility] Other 12-28-2021 11:45-0400 Body temperature 96.6 [degF] Blake Millard Other [facility] Other 12-28-2021 11:45-0400 Body weight 92.99 kg Blake Millard Other [facility] Other 12-28-2021 11:45-0400 Diastolic blood pressure 70 mm[Hg] Blake Millard Other [facility] Other 12-28-2021 11:45-0400 SaO2% (BldA) [Mass fraction] 97 % Blake Millard Other [facility] Other 12-28-2021 11:45-0400 Systolic blood pressure 118 mm[Hg] Blake Millard Other [facility] Other Encounters Encounter Date Encounter Type Care Provider Facility Start: 11-20-2023 [employer] Tosha ernst MD Work Phone: [facility] Start: 11-20-2023 [employer] Tosha ernst MD Work Phone: [facility] Start: 11-20-2023 End: 11-20-2023 Office outpatient visit 25 minutes Tosha Aguirre MD Work Phone: [facility] Comment on above: Type 2 diabetes marbin itus with foot ulcer, with long-term current use of insulin ([facility]) (Primary Dx); Chronic atrial fibrillation, unspecified (I48.20); Unspecified mood [affective] disorder (F39); Other ventricular tachycardia (I47.29); 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 gangrene, with long-term current use of insulin ([facility]); Peripheral vascular disease, unspecified (I73.9); Dementia without behavioral disturbance, psychotic disturbance, mood disturbance, or anxiety, unspecified dementia severity, unspecified dementia type (CMS/HCC); Non-pressure chronic ulcer of other part of right foot with fat layer exposed (L97.512); Heart failure, unspecified HF chronicity, unspecified heart failure type ([facility]); 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; [facility] current use of anticoagulant; Advanced age; Gait disturbance; Essential (primary) hypertension ([facility]); Urinary incontinence, unspecified type; Other cerebral infarction due to occlusion or stenosis of small artery ([facility]); DM type 2 with diabetic peripheral neuropathy ([facility]) Start: 02-24-2023 End: 02-25-[address] MARIXA [...] 05-23-2022 End: 05-23-2022 ambulatory Raven Cheng Other [facility] Other Start: 05-23-2022 Office outpatient vi sit [...] End: 02-21-2022 ambulatory Raven Cheng Other [facility] Other Start: 02-21-2022 Follow-up encounter [facility] Start: 02-21-2022 End: 02-21-2022 Patient encounter procedure MD Blake Millard Work Phone: [facility] Start: 12-28-2021 End: 12-28-2021 ambulatory Blake Millard Other [facility] Other Start: 12-28-2021 Office outpatient ne w 45 minutes Blake Millard [facility] Vascular Surgery Plan of Treatment Date Care Activity Detail Author Start: 02-19-2024 End: 02-19-2024 Patient encounter procedure 02/19/2024 10:30 AM EDT Office Visit [facility] [address] [place] [address] Tosha Aguirre MD [address] [place], [place] [id number] [facility] Start: 01-17-2024 Hemoglobin A1c measurement Diabetes: Hemoglobin A1C [facility] Start: 11-20-2023 End: 11-20-2023 Patient encounter procedure 11/20/2023 9:30 AM EST Office Visit [facility] [address] [place] [id number] Tosha Aguirre MD [address] [place] [address] 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 (Primary Dx); Other [...] scan of lower limb veins venous duplex [facility] Start: 1945 Glaucoma screening Diabetes: R etinopathy Screening [facility] Start: 1935 Medicare Annual Well ness (AWV) Medicare Annual Wellness (AWV) [facility] Immunizations Immunization Date Immunization Notes Care Provider Fa cility 09-05-2023 Pneumococcal Conjuga te PCV 20 Tosha Aguirre MD Work Phone: [facility] 07-21-2023 Influenza, High-dose Seasonal, Quadrivalent, Preservative Free Tosha Aguirre MD Work Phone: [facility] 08-02-2022 Influenza, High-dose Seasonal, Quadrivalent, Preservative Free Tosha Aguirre MD Work Phone: [facility] 11-22-2021 influenza, high dose seasonal, preservative-free Tosha Aguirre MD Work Phone: [facility] 09-11-2020 Influenza, High-dose Seasonal, Quadrivalent, Preservative Free Tosha Aguirre MD Work Phone: [facility] 09-05-2019 influenza, high dose seasonal, preservative-free Tosha Aguirre MD Work Phone: [facility] 09-12-2017 influenza, high dose seasonal, preservative-free Tosha Aguirre MD Work Phone: [facility] Payers Date Payer Category Payer Unknown AARP AARP [id number] 2022-Present [address] [place] [address] [id number] 2002 Medicare MEDICARE MEDICAR E PART B [id number] 2002-Present [address] [address] [place] [address] Medicare [id number] 1959 Medicare [id number] 1959 Unknown [id number] 1937 Unknown [id number] 2.16.840.1.277438.3.579.2.593 1937 Unknown [id number] 2.16.840.1.471343.3.579.2.593 1937 Unknown [id number] 2.16.840.1.710913.3.579.2.593 1937 Unknown [id number] 2.16.840.1.680389.3.579.2.593 1937 Unknown [id number] 2.16.840.1.037477.3.579.2.593 1937 Unknown [id number] 2.16.840.1.370994.3.579.2.593 1937 Unknown [id number] 2.16.840.1.646460.3.579.2.593 1937 Unknown [id number] 2.16.840.1.265436.3.579.2.593 1937 Unknown [id number] 2.16.840.1.422932.3.579.2.593 1937 Unknown [id number] 2.16.840.1.691513.3.579.2.593 1937 Unknown [id number] 2.16.840.1.847589.3.579.2.593 1937 Unknown [id number] 2.16.840.1.458318.3.579.2.593 1937 Unknown [id number] 2.16.840.1.587564.3.579.2.593 1937 Unknown [id number] 2.16.840.1.688296.3.579.2.593 1937 Unknown [id number] 2.16.840.1.211037.3.579.2.593 1937 Unknown [id number] 2.16.840.1.432310.3.579.2.593 Self-pay Self Pay [id number] Social History Date Type Detail Facility Tobacco smoking status NHIS Unknown if ever smoked [facility] Other Start: 1935 Sex Assigned At Male [facility] Start: 11-20-2023 Sex Assigned At [facility] Other Tobacco smoking status NHIS Tobacco smoking [...] issues. HPI: Pt is a resident of [facility]. He is currently seeing wound care. Pt [...] ulcer, with long-term current use of insulin ([facility]) sees wound care 2. Chronic atrial fibrillation, unspecified (I48.20) heart rate is controlled. Pt is no seeing cardiology, they dismissed him due to other comorbidities, emphasis on comfort 3. Unspecified mood [affective] disorder (F39) 4. Other ventricular tachycardia (I47.29) denies palpitations 5. 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 gangrene, with long-term current use of insulin ([facility]) eye exam 6. Peripheral vascular disease, unspecified (I73.9) sees wound care 7. Dementia without behavioral disturbance, psychotic disturbance, mood disturbance, or anxiety, unspecified dementia severity, unspecified dementia type ([facility]) 8. Non-pressure chronic ulcer of other part of right foot with fat layer exposed (L97.512) 9. Heart failure, unspecified HF chronicity, unspecified heart failure type ([facility]) no sign of CHF at this time, stable 10. 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 11. [facility] current use of anticoagulant 12. Advanced age emphasis on comfort, Resides at [facility] 13. Gait disturbance walking with a cane 14. Essential (primary) hypertension (CMS/HCC) 15. Urinary incontinence, unspecified type 16. Other cerebral infarction due to occlusion or stenosis of small artery ([facility]) 17. DM type 2 with diabetic peripheral neuropathy ([facility]) I will follow up on his DNR paperwork. Encouraged eye exam Hgba1c is 7.0 was 6.8 Pt wants to be kept comfortable at [place] and no hospitalization per and daughter. His answers most of his questions. They have been 65 yrs this week. Follow up in 3 months with his . Spent over 30 min problem focused care with over 50% in counseling documented in this encounter [facility] Clinical Note 07-22-2022 Note Date & Type [...] authenticated by: MIRIAM OTERO Date: 2022-07-22 11:18 [facility] Evaluation note 05-23-2022 Note Date & Type [...] basis should he deteriorate in any way. [facility] Other Clinical Note 04-01-2022 Note Date & [...] by: DESMOND BOSTON Date: 2022-04-01 18:12 [facility] Evaluation note 02-21-2022 Note Date & [...] understanding, agrees this plan, deny any questions. [facility] Other Evaluation note 12-28-2021 Note Date & [...] him back once that study is accomplished. [facility] Other Evaluation note Note Date & Type Note Facility Evaluation note No assessment information availa [facility] Work Phone: Evaluation note Note [...] unspecified heart failure type (CMS/HCC) 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 [facility] current use of anticoagulant Advanced age Gait [...] cataract removal left Hospitalization History see above [facility] Other Chief Complaint and Reason for Visit [...] PHYSICIAN NO FAMILY Primary Care Provider Active Ceiling Installer Relationship Specialty Start Date End Date Tosha Aguirre MD [address] [facility] [address] PCP - ACO Reach 03/09/23 Tosha Aguirre MD [address] [facility] [place] [address] PCP - General Family Medicine 02/21/23 Rosina Valdez, RN [address] [facility] [place] [address] Registered Nurse Family Medicine 10/31/23 Dinora Stroud LSW [employer] [facility] Medicine 11/17/23 Ceiling Installer Relationship Specialty Start Date End Date Tosha Aguirre MD [address] [facility] [place] [address] PCP - ACO Reach 03/09/23 Tosha Aguirre MD [address] [facility] [place] [address] PCP - General Family Medicine 02/21/23 Rosina Valdez, RN [address] [facility] [place] [address] Registered Nurse Family Medicine 10/31/[address] [facility] [employer] [facility] Medicine 11/17/23 Goals (unrecognized section and [...] ON THE PRIMARY CLINICAL RECORDS. [facility] [employer] [facility]. provides no warranty or guarantee of the accuracy or completeness of information in this document.
== END 2024-08-07 15:43 | disposition home or self-care (01) ==
LOC: WC 15:42
PROVIDERS: PCP Podiatrist Foot & Ankle Surgery; Visit Provider Physician Assistant
DX: E11.621 Type 2 diabetes mellitus with foot ulcer (principal); L97.411 Non-pressure chronic ulcer of right heel and midfoot limited to breakdown of skin; I87.313 Chronic venous hypertension (idiopathic) with ulcer of bilateral lower extremity; L97.821 Non-pressure chronic ulcer of other part of left lower leg limited to breakdown of skin; L97.811 Non-pressure chronic ulcer of other part of right lower leg limited to breakdown of skin
CPT/HCPCS: G0463

== ENCOUNTER 2024-08-28 14:57 | Outpatient (OUT) | payer MEDICARE, SELFPAY | END 2024-08-28 14:58 | disposition home or self-care (01) | LOC: WC 14:57 | PROVIDERS: PCP Podiatrist Foot & Ankle Surgery; Visit Provider Physician Assistant | DX: E11.621 Type 2 diabetes mellitus with foot ulcer (principal); L97.411 Non-pressure chronic ulcer of right heel and midfoot limited to breakdown of skin; I87.313 Chronic venous hypertension (idiopathic) with ulcer of bilateral lower extremity; L97.821 Non-pressure chronic ulcer of other part of left lower leg limited to breakdown of skin; L97.811 Non-pressure chronic ulcer of other part of right lower leg limited to breakdown of skin | CPT/HCPCS: G0463 ==

== ENCOUNTER 2024-09-18 11:58 | Outpatient (OUT) | payer MEDICARE, SELFPAY | END 2024-09-18 11:59 | disposition home or self-care (01) | LOC: WC 11:58 | PROVIDERS: PCP Podiatrist Foot & Ankle Surgery; Visit Provider Physician Assistant | DX: I87.313 Chronic venous hypertension (idiopathic) with ulcer of bilateral lower extremity (principal); L97.821 Non-pressure chronic ulcer of other part of left lower leg limited to breakdown of skin; L97.811 Non-pressure chronic ulcer of other part of right lower leg limited to breakdown of skin; L97.822 Non-pressure chronic ulcer of other part of left lower leg with fat layer exposed | CPT/HCPCS: G0463 ==

== ENCOUNTER 2024-10-25 10:28 | Outpatient (OUT) | payer MEDICARE, SELFPAY ==
--- OUTSIDE RECORDS SUMMARY | 2024-10-25 10:55 | XMS_ITS | CCD ---
Author Organization [facility] CliniSyct Care Team Providers Care Employment Counselor Name Role Phone MD Blake Millard Attending [...] source) Sulfamethoxazole / Trimethoprim Drug Allergy 2 [facility] Repository (2 sources) Sulfamethoxazole / Trimethoprim Drug [facility] 2 [facility] Medications Current Medications Medication Drug Class(es) [...] mg extended release oral capsule (5 sources) D-pzfjtx-V-aspartate Receptor Antagonist Memantine HCl ER 28 MG [...] before bedtime. 0 Active polyethylene glycol 3350 03864 mg powder for oral solution (6 sources) [...] source) Long-term current use of anticoagulant; Translations: [ferry terminal agent (current) use of anticoagulants] 11-20-2023 Episodic Other [...] BIon US venous duplex [place] [address] Ultrasound Report Signed Patient: Tayo Uribe MR#: [id number] 39 : 1935 Acct:[id number] Age/Sex: 86 / M ADM Date: 02/21/22 Loc: [facility] Room: Type: [facility] Attending Dr: Blake Millard MD Ordering [...] Tigre Dorsey MD02/23/2022 1:03 PM Dictation Location: [place] [address] Tech: Sophia Thomas Transcribed By: JHON 02/23/22 1303 Dictated By: Tigre Dorsey MD 02/23/22 1302 Signed By: 02/23/22 1303 [facility] Vital Signs Date Time Vital Sign Value Performing Clinician Facility 11-20-2023 09:40-0500 Body weight 97.43 kg Tosha Aguirre MD Work Phone: [facility] 11-20-2023 09:40-0500 Diastolic blood pressure 58 mm[Hg] Tosha Aguirre MD Work Phone: [facility] 11-20-2023 09:40-0500 Heart rate 60 /min Tosha Aguirre MD Work Phone: [facility] 11-20-2023 09:40-0500 Systolic blood pressure 126 mm[Hg] Tosha Aguirre MD Work Phone: [facility] 05-23-2022 12:30-0400 Body height 187.96 cm Raven Prosper Other [facility] Other 05-23-2022 12:30-0400 Body mass index (BMI) [Ratio] 26.32 kg/m2 Raven Prosper Other [facility] Other 05-23-2022 12:30-0400 Body temperature 97 [degF] Raven Prosper Other [facility] Other 05-23-2022 12:30-0400 Body weight 92.99 kg Raven Orantesrenetta Other [facility] Other 05-23-2022 12:30-0400 Diastolic blood pressure 46 mm[Hg] Raven Cheng Other [facility] Other 05-23-2022 12:30-0400 SaO2% (BldA) [Mass fraction] 97 % Raven Oranteso Other [facility] Other 05-23-2022 12:30-0400 Systolic blood pressure 110 mm[Hg] Raven Oranteso Other [facility] Other 02-21-2022 12:45-0400 Body height 187.96 cm Raven Oranteso Other [facility] Other 02-21-2022 12:45-0400 Body temperature 97.2 [degF] Raven Oranteso Other [facility] Other 02-21-2022 12:45-0400 Diastolic blood pressure 60 mm[Hg] Raven Oranteso Other [facility] Other 02-21-2022 12:45-0400 SaO2% (BldA) [Mass fraction] 99 % Raven Cheng Other [facility] Other 02-21-2022 12:45-0400 Systolic blood pressure 138 mm[Hg] Raven Oranteso Other [facility] Other 12-28-2021 11:45-0400 Body height 187.96 cm Blake Millard Other [facility] Other 12-28-2021 11:45-0400 Body mass index (BMI) [Ratio] 26.32 kg/m2 Blake Millard Other [facility] Other 12-28-2021 11:45-0400 Body temperature 96.6 [degF] Blake Millard Other [facility] Other 12-28-2021 11:45-0400 Body weight 92.99 kg Blake Millard Other [facility] Other 12-28-2021 11:45-0400 Diastolic blood pressure 70 mm[Hg] Blake Millard Other [facility] Other 12-28-2021 11:45-0400 SaO2% (BldA) [Mass fraction] 97 % Blake Millard Other [facility] Other 12-28-2021 11:45-0400 Systolic blood pressure 118 mm[Hg] Blake Millard Other [facility] Other Encounters Encounter Date Encounter Type Care Provider Facility Start: 11-20-2023 Easiest Credit Card To Get Approved Forheet Tosha ernst MD Work Phone: [facility] Start: 11-20-2023 Adstrix Tosha ernst MD Work Phone: [facility] Start: 11-20-2023 End: 11-20-2023 Office outpatient visit 25 minutes Tosha Aguirre MD Work Phone: [facility] Comment on above: Type 2 diabetes marbin itus with foot ulcer, with long-term current use of insulin ([facility]) (Primary Dx); Chronic atrial fibrillation, unspecified (I48.20); Unspecified mood [affective] disorder (F39); Other ventricular tachycardia (I47.29); 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 gangrene, with long-term current use of insulin ([facility]); Peripheral vascular disease, unspecified (I73.9); Dementia without behavioral disturbance, psychotic disturbance, mood disturbance, or anxiety, unspecified dementia severity, unspecified dementia type (CMS/HCC); Non-pressure chronic ulcer of other part of right foot with fat layer exposed (L97.512); Heart failure, unspecified HF chronicity, unspecified heart failure type ([facility]); 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; residential current use of anticoagulant; Advanced age; Gait disturbance; Essential (primary) hypertension ([facility]); Urinary incontinence, unspecified type; Other cerebral infarction due to occlusion or stenosis of small artery ([facility]); DM type 2 with diabetic peripheral neuropathy ([facility]) Start: 02-24-2023 End: 02-25-2023 ambulatory [...] 05-23-2022 End: 05-23-2022 ambulatory Raven Cheng Other [facility] Other Start: 05-23-2022 Office outpatient vi sit [...] 02-21-2022 End: 02-21-2022 ambulatory Raven Cheng Other [facility] [employer] Other Start: 02-21-2022 Follow-up encounter [facility] Start: 02-21-2022 End: 02-21-2022 Patient encounter procedure MD Blake Millard Work Phone: [facility] Start: 12-28-2021 End: 12-28-2021 ambulatory Blake Millard Other [facility] [employer] Other Start: 12-28-2021 Office outpatient ne w 45 minutes Blake Millard [facility] Plan of Treatment Date Care Activity Detail Author Start: 02-19-2024 End: 02-19-2024 Patient encounter procedure 02/19/2024 10:30 AM EDT Office Visit [facility] [address] [place] [address] Tosha Aguirre MD [address] [place], [place] [id number] [facility] Start: 01-17-2024 Hemoglobin A1c measurement Diabetes: Hemoglobin A1C [facility] Start: 11-20-2023 End: 11-20-2023 Patient encounter procedure 11/20/2023 9:30 AM EST Office Visit [facility] [address] [place] [id number] Tosha Aguirre MD [address] [place] [address] 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 (Primary Dx); Other [...] scan of lower limb veins venous duplex [facility] Start: 1945 Glaucoma screening Diabetes: R etinopathy Screening [facility] Start: 1935 Medicare Annual Well ness (AWV) Medicare Annual Wellness (AWV) [facility] Immunizations Immunization Date Immunization Notes Care Provider Fa cility 09-05-2023 Pneumococcal Conjuga te PCV 20 Tosha Aguirre MD Work Phone: [facility] 07-21-2023 Influenza, High-dose Seasonal, Quadrivalent, Preservative Free Tosha Aguirre MD Work Phone: [facility] 08-02-2022 Influenza, High-dose Seasonal, Quadrivalent, Preservative Free Tosha Aguirre MD Work Phone: [facility] 11-22-2021 influenza, high dose seasonal, preservative-free Tosha Aguirre MD Work Phone: [facility] 09-11-2020 Influenza, High-dose Seasonal, Quadrivalent, Preservative Free Tosha Aguirre MD Work Phone: [facility] 09-05-2019 influenza, high dose seasonal, preservative-free Tosha Aguirre MD Work Phone: [facility] 09-12-2017 influenza, high dose seasonal, preservative-free Tosha Aguirre MD Work Phone: [facility] Payers Date Payer Category Payer Unknown AARP AARP [id number] 2022-Present [address] [place] [address] [id number] 2002 Medicare MEDICARE MEDICAR E PART B [id number] 2002-Present [address] [address] [place] [address] Medicare [id number] 1959 Medicare [id number] 1959 Unknown [id number] 1937 Unknown [id number] 2.16.840.1.848095.3.579.2.593 1937 Unknown [id number] 2.16.840.1.298730.3.579.2.593 1937 Unknown [id number] 2.16.840.1.347068.3.579.2.593 1937 Unknown [id number] 2.16.840.1.667554.3.579.2.593 1937 Unknown [id number] 2.16.840.1.085042.3.579.2.593 1937 Unknown [id number] 2.16.840.1.033282.3.579.2.593 1937 Unknown [id number] 2.16.840.1.499888.3.579.2.593 1937 Unknown [id number] 2.16.840.1.574175.3.579.2.593 1937 Unknown [id number] 2.16.840.1.703921.3.579.2.593 1937 Unknown [id number] 2.16.840.1.230317.3.579.2.593 1937 Unknown [id number] 2.16.840.1.884542.3.579.2.593 1937 Unknown [id number] 2.16.840.1.185481.3.579.2.593 1937 Unknown [id number] 2.16.840.1.817298.3.579.2.593 1937 Unknown [id number] 2.16.840.1.883205.3.579.2.593 1937 Unknown [id number] 2.16.840.1.750406.3.579.2.593 1937 Unknown [id number] 2.16.840.1.045051.3.579.2.593 Self-pay Self Pay [id number] Social History Date Type Detail Facility Tobacco smoking status NHIS Unknown if ever smoked [facility] [employer] Other Start: 1935 Sex Assigned At Male [facility] Start: 11-20-2023 Sex Assigned At [facility] [employer] Other Tobacco smoking status NHIS Tobacco smoking [...] issues. HPI: Pt is a resident of [facility]. He is currently seeing wound care. [...] ulcer, with long-term current use of insulin ([facility]) sees wound care 2. Chronic atrial fibrillation, unspecified (I48.20) heart rate is controlled. Pt is no seeing cardiology, they dismissed him due to other comorbidities, emphasis on comfort 3. Unspecified mood [affective] disorder (F39) 4. Other ventricular tachycardia (I47.29) denies palpitations 5. 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 gangrene, with long-term current use of insulin ([facility]) eye exam 6. Peripheral vascular disease, unspecified (I73.9) sees wound care 7. Dementia without behavioral disturbance, psychotic disturbance, mood disturbance, or anxiety, unspecified dementia severity, unspecified dementia type ([facility]) 8. Non-pressure chronic ulcer of other part of right foot with fat layer exposed (L97.512) 9. Heart failure, unspecified HF chronicity, unspecified heart failure type ([facility]) no sign of CHF at this time, stable 10. 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 11. residential current use of anticoagulant 12. Advanced age emphasis on comfort, Resides at [facility] 13. Gait disturbance walking with a cane 14. Essential (primary) hypertension (CMS/HCC) 15. Urinary incontinence, unspecified type 16. Other cerebral infarction due to occlusion or stenosis of small artery ([facility]/HCC) 17. DM type 2 with diabetic peripheral neuropathy ([facility]) I will follow up on his DNR paperwork. Encouraged eye exam Hgba1c is 7.0 was 6.8 Pt wants to be kept comfortable at [place] and no hospitalization per and daughter. His answers most of his questions. They have been 65 yrs this week. Follow up in 3 months with his . Spent over 30 min problem focused care with over 50% in counseling documented in this encounter [facility] Clinical Note 07-22-2022 Note Date & [...] authenticated by: MIRIAM OTERO Date: 2022-07-22 11:18 [facility] Evaluation note 05-23-2022 Note Date & [...] basis should he deteriorate in any way. [facility] Other Clinical Note 04-01-2022 Note Date & [...] by: DESMOND BOSTON Date: 2022-04-01 18:12 [facility] Evaluation note 02-21-2022 Note Date & [...] understanding, agrees this plan, deny any questions. [facility] Other Evaluation note 12-28-2021 Note Date & [...] him back once that study is accomplished. [facility] Other Evaluation note Note Date & Type Note Facility Evaluation note No assessment information availa [facility] Work Phone: Evaluation note Note Date [...] cataract removal left Hospitalization History see above [facility] Other Chief Complaint and Reason for Visit [...] PHYSICIAN NO FAMILY Primary Care Provider Active Employment Counselor Relationship Specialty Start Date End Date Tosha Aguirre MD [address] [facility] [place] [address] PCP - ACO Reach 03/09/23 Tosha Aguirre MD [address] [facility] [place] [address] PCP - General Family Medicine 02/21/23 Rosina Valdez, RN [address] [facility] [place] [address] Registered Nurse Family Medicine 10/31/23 Dinora Stroud LSW [employer] [facility] 11/17/23 Employment Counselor Relationship Specialty Start Date End Date Tosha Aguirre MD [address] [facility] [place] [address] PCP - ACO Reach 03/09/23 Tosha Aguirre MD [address] [facility] [place] [address] PCP - General Family Medicine 02/21/23 Rosina Valdez, RN [address] [facility] [place] [address] Registered Nurse Family Medicine 10/31/23 Dinora Stroud [facility] [employer] [facility] 11/17/23 Goals (unrecognized section and content) Goals may be documented in a n alternate sectionNo InformationNo InformationNo InformationNo Information (unrecognized sect ion and content) No Status Records FoundNo Status Records Found INFORMATION SOURCE (unrecogn ized section and content) DATE CREATED AUTHOR 03/11/2022 [facility] DATE CREATED AUTHOR 'S ORGANIZ [...] BE BASED ON THE PRIMARY CLINICAL RECORDS. [facility] [employer] [facility]. provides no warranty or guarantee of the accuracy or completeness of information in this document.
== END 2024-10-25 10:29 | disposition home or self-care (01) ==
LOC: WC 10:43
PROVIDERS: PCP Podiatrist Foot & Ankle Surgery; Visit Provider Podiatrist Foot & Ankle Surgery
DX: I87.313 Chronic venous hypertension (idiopathic) with ulcer of bilateral lower extremity (principal); L97.811 Non-pressure chronic ulcer of other part of right lower leg limited to breakdown of skin; L97.822 Non-pressure chronic ulcer of other part of left lower leg with fat layer exposed
CPT/HCPCS: G0463

== ENCOUNTER 2024-11-20 11:52 | Outpatient (OUT) | payer MEDICARE, SELFPAY ==
--- OUTSIDE RECORDS SUMMARY | 2024-11-22 11:56 | XMS_ITS | CCD ---
Author Organization [facility] Care Team Providers Care Mental Health Assistant Name Role Phone MD Blake Millard Attending Provider [phone] NO FAMILY, PHYSICIAN Primary Care Provider Unava [...] source) Sulfamethoxazole / Trimethoprim Drug Allergy 2 [facility] (2 sources) Sulfamethoxazole / [facility]ethop[facility] Medications Current Medications Medication Drug [...] mg extended release oral capsule (5 sources) T-yhqduk-Q-aspartate Receptor Antagonist Memantine HCl ER 28 MG [...] before bedtime. 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] 11-20-2023 Episodic Other [...] venous duplex LE BIon US venous duplex [facility] [place] [address] Ultrasound Report Signed Patient: Tayo Uribe MR#: [id number] 39 : 1935 Acct:[id number] Age/Sex: 86 / M ADM Date: 02/21/22 Loc: [facility] Room: Type: [facility] Attending Dr: Blake Millard MD Ordering [...] Tigre Dorsey MD02/23/2022 1:03 PM Dictation Location: [place] [address] Tech: Sophia Thomas Transcribed By: JHON 02/23/22 1303 Dictated By: Tigre Dorsey MD 02/23/22 1302 Signed By: 02/23/22 1303 [facility] Vital Signs Date Time Vital Sign Value Performing Clinician Facility 11-20-2023 09:40-0500 Body weight 97.43 kg Tosha Aguirre MD Work Phone: [facility] 11-20-2023 09:40-0500 Diastolic blood pressure 58 mm[Hg] Tosha Aguirre MD Work Phone: [facility] 11-20-2023 09:40-0500 Heart rate 60 /min Tosha Aguirre MD Work Phone: [facility] 11-20-2023 09:40-0500 Systolic blood pressure 126 mm[Hg] Tosha Aguirre MD Work Phone: [facility] 05-23-2022 12:30-0400 Body height 187.96 cm Raven Prosper Other [facility] Other 05-23-2022 12:30-0400 Body mass index (BMI) [Ratio] 26.32 kg/m2 Raven Prosper Other [facility] Other 05-23-2022 12:30-0400 Body temperature 97 [degF] Raven Prosper Other [facility] Other 05-23-2022 12:30-0400 Body weight 92.99 kg Raven Orantesrenetta Other [facility] Other 05-23-2022 12:30-0400 Diastolic blood pressure 46 mm[Hg] Raven Cheng Other [facility] Other 05-23-2022 12:30-0400 SaO2% (BldA) [Mass fraction] 97 % Raven Oranteso Other [facility] Other 05-23-2022 12:30-0400 Systolic blood pressure 110 mm[Hg] Raven Oranteso Other [facility] Other 02-21-2022 12:45-0400 Body height 187.96 cm Raven Oranteso Other [facility] Other 02-21-2022 12:45-0400 Body temperature 97.2 [degF] Raven Oranteso Other [facility] Other 02-21-2022 12:45-0400 Diastolic blood pressure 60 mm[Hg] Raven Oranteso Other [facility] Other 02-21-2022 12:45-0400 SaO2% (BldA) [Mass fraction] 99 % Raven Cheng Other [facility] Other 02-21-2022 12:45-0400 Systolic blood pressure 138 mm[Hg] Raven Oranteso Other [facility] Other 12-28-2021 11:45-0400 Body height 187.96 cm Blake Millard Other [facility] Other 12-28-2021 11:45-0400 Body mass index (BMI) [Ratio] 26.32 kg/m2 Blake Millard Other [facility] Other 12-28-2021 11:45-0400 Body temperature 96.6 [degF] Blake Millard Other [facility] Other 12-28-2021 11:45-0400 Body weight 92.99 kg Blake Millard Other [facility] Other 12-28-2021 11:45-0400 Diastolic blood pressure 70 mm[Hg] Blake Millard Other [facility] Other 12-28-2021 11:45-0400 SaO2% (BldA) [Mass fraction] 97 % Blake Millard Other [facility] Other 12-28-2021 11:45-0400 Systolic blood pressure 118 mm[Hg] Blake Millard Other [facility] Other Encounters Encounter Date Encounter Type Care Provider Facility Start: 11-20-2023 [place] Tosha ernst MD Work Phone: [facility] Start: 11-20-2023 [place] Tosha ernst MD Work Phone: [facility] Start: 11-20-2023 End: 11-20-2023 Office outpatient visit 25 minutes Tosha Aguirre MD Work Phone: [facility] Comment on above: Type 2 diabetes marbin itus with foot ulcer, with long-term current use of insulin ([facility]) (Primary Dx); Chronic atrial fibrillation, unspecified (I48.20); Unspecified mood [affective] disorder (F39); Other ventricular tachycardia (I47.29); 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 gangrene, with long-term current use of insulin ([facility]); Peripheral vascular disease, unspecified (I73.9); Dementia without behavioral disturbance, psychotic disturbance, mood disturbance, or anxiety, unspecified dementia severity, unspecified dementia type (CMS/HCC); Non-pressure chronic ulcer of other part of right foot with fat layer exposed (L97.512); Heart failure, unspecified HF chronicity, unspecified heart failure type ([facility]); 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; nursing home current use of anticoagulant; Advanced age; Gait disturbance; Essential (primary) hypertension ([facility]); Urinary incontinence, unspecified type; Other cerebral infarction due to occlusion or stenosis of small artery ([facility]); DM type 2 with diabetic peripheral neuropathy ([facility]) Start: 02-24-2023 End: 02-25-[address] [...] 05-23-2022 End: 05-23-2022 ambulatory Raven Cheng Other [facility] Other Start: 05-23-2022 Office outpatient vi sit [...] 02-21-2022 End: 02-21-2022 ambulatory Raven Cheng Other [facility] Other Start: 02-21-2022 Follow-up encounter [facility] Start: 02-21-2022 End: 02-21-2022 Patient encounter procedure MD Blake Millard Work Phone: [facility] Start: 12-28-2021 End: 12-28-2021 ambulatory Blake Millard Other [facility] Other Start: 12-28-2021 Office outpatient ne w 45 minutes Blake Millard [facility] V[facility] Surgery Plan of Treatment Date Care Activity Detail Author Start: 02-19-2024 End: 02-19-2024 Patient encounter procedure 02/19/2024 10:30 AM EDT Office Visit [facility] [address] [place] [address] Tosha Aguirre MD [address] [place], [place] [id number] [facility] Start: 01-17-2024 Hemoglobin A1c measurement Diabetes: Hemoglobin A1C [facility] Start: 11-20-2023 End: 11-20-2023 Patient encounter procedure 11/20/2023 9:30 AM EST Office Visit [facility] [address] [place] [id number] Tosha Aguirre MD [address] [place] [address] 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 (Primary Dx); Other [...] 1945 Glaucoma screening Diabetes: R etinopathy Screening [facility] Start: 1935 Medicare Annual Well ness (AWV) Medicare Annual Wellness (AWV) [facility] Immunizations Immunization Date Immunization Notes Care Provider Fa cility 09-05-2023 Pneumococcal Conjuga te PCV 20 Tosha Aguirre MD Work Phone: [facility] 07-21-2023 Influenza, High-dose Seasonal, Quadrivalent, Preservative Free Tosha Aguirre MD Work Phone: [facility] 08-02-2022 Influenza, High-dose Seasonal, Quadrivalent, Preservative Free Tosha Aguirre MD Work Phone: [facility] 11-22-2021 influenza, high dose seasonal, preservative-free Tosha Aguirre MD Work Phone: [facility] 09-11-2020 Influenza, High-dose Seasonal, Quadrivalent, Preservative Free Tosha Aguirre MD Work Phone: [facility] 09-05-2019 influenza, high dose seasonal, preservative-free Tosha Aguirre MD Work Phone: [facility] 09-12-2017 influenza, high dose seasonal, preservative-free Tosha Aguirre MD Work Phone: [facility] Payers Date Payer Category Payer Unknown AARP AARP [id number] 2022-Present [address] [place] [address] [id number] 2002 Medicare MEDICARE MEDICAR E PART B [id number] 2002-Present [address] [address] [place] [address] Medicare [id number] 1959 Medicare [id number] 1959 Unknown [id number] 1937 Unknown [id number] 2.16.840.1.399620.3.579.2.593 1937 Unknown [id number] 2.16.840.1.736314.3.579.2.593 1937 Unknown [id number] 2.16.840.1.602998.3.579.2.593 1937 Unknown [id number] 2.16.840.1.059394.3.579.2.593 1937 Unknown [id number] 2.16.840.1.964050.3.579.2.593 1937 Unknown [id number] 2.16.840.1.892423.3.579.2.593 1937 Unknown [id number] 2.16.840.1.140864.3.579.2.593 1937 Unknown [id number] 2.16.840.1.604566.3.579.2.593 1937 Unknown [id number] 2.16.840.1.494568.3.579.2.593 1937 Unknown [id number] 2.16.840.1.700056.3.579.2.593 1937 Unknown [id number] 2.16.840.1.485581.3.579.2.593 1937 Unknown [id number] 2.16.840.1.728933.3.579.2.593 1937 Unknown [id number] 2.16.840.1.788548.3.579.2.593 1937 Unknown [id number] 2.16.840.1.098555.3.579.2.593 1937 Unknown [id number] 2.16.840.1.358703.3.579.2.593 1937 Unknown [id number] 2.16.840.1.700817.3.579.2.593 Self-pay Self Pay [id number] Social History Date Type Detail Facility Tobacco smoking status NHIS Unknown if ever smoked [facility] Other Start: 1935 Sex Assigned At Male [facility] Start: 11-20-2023 Sex Assigned At [facility] Other Tobacco smoking status NHIS Tobacco smoking [...] issues. HPI: Pt is a resident of [facility]. He is currently seeing wound care. [...] ulcer, with long-term current use of insulin ([facility]) sees wound care 2. Chronic atrial fibrillation, unspecified (I48.20) heart rate is controlled. Pt is no seeing cardiology, they dismissed him due to other comorbidities, emphasis on comfort 3. Unspecified mood [affective] disorder (F39) 4. Other ventricular tachycardia (I47.29) denies palpitations 5. 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 gangrene, with long-term current use of insulin ([facility]) eye exam 6. Peripheral vascular disease, unspecified (I73.9) sees wound care 7. Dementia without behavioral disturbance, psychotic disturbance, mood disturbance, or anxiety, unspecified dementia severity, unspecified dementia type ([facility]) 8. Non-pressure chronic ulcer of other part of right foot with fat layer exposed (L97.512) 9. Heart failure, unspecified HF chronicity, unspecified heart failure type ([facility]) no sign of CHF at this time, stable 10. 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 11. nursing home current use of anticoagulant 12. Advanced age emphasis on comfort, Resides at [facility] 13. Gait disturbance walking with a cane 14. Essential (primary) hypertension (CMS/HCC) 15. Urinary incontinence, unspecified type 16. Other cerebral infarction due to occlusion or stenosis of small artery ([facility]/HCC) 17. DM type 2 with diabetic peripheral neuropathy ([facility]) I will follow up on his DNR paperwork. Encouraged eye exam Hgba1c is 7.0 was 6.8 Pt wants to be kept comfortable at [facility] and no hospitalization per and daughter. His answers most of his questions. They have been 65 yrs this week. Follow up in 3 months with his . Spent over 30 min problem focused care with over 50% in counseling documented in this encounter [facility] Clinical Note 07-22-2022 Note Date & Type [...] authenticated by: MIRIAM OTERO Date: 2022-07-22 11:18 [facility] Evaluation note 05-23-2022 Note Date & Type [...] basis should he deteriorate in any way. [facility] Other Clinical Note 04-01-2022 Note Date & [...] by: DESMOND BOSTON Date: 2022-04-01 18:12 [facility] Evaluation note 02-21-2022 Note Date [...] understanding, agrees this plan, deny any questions. [facility] Other Evaluation note 12-28-2021 Note Date & [...] him back once that study is accomplished. [facility] Other Evaluation note Note Date & Type Note Facility Evaluation note No assessment information availa [facility] Work Phone: Evaluation note Note Date [...] cataract removal left Hospitalization History see above [facility] Other Chief Complaint and Reason for Visit [...] PHYSICIAN NO FAMILY Primary Care Provider Active Mental Health Assistant Relationship Specialty Start Date End Date Tosha Aguirre MD [address] [facility] [place] [address] PCP - ACO Reach 03/09/23 Tosha Aguirre MD [address] [facility] [place] [address] PCP - General Family Medicine 02/21/23 Rosina Valdez, RN [address] [place] [place] [address] Registered Nurse Family Medicine 10/31/23 Dinora Stroud LSW [employer] [facility] Medicine 11/17/23 Mental Health Assistant Relationship Specialty Start Date End Date Tosha Aguirre MD [address] [facility] [place] [address] PCP - ACO Reach 03/09/23 Tosha Aguirre MD [address] [facility] [place] [address] PCP - General Family Medicine 02/21/23 Rosina Valdez, RN [address] [facility] [place] [address] Registered Nurse Family Medicine 10/31/23 Dinora Stroud [facility] [employer] [facility] 11/17/23 Goals (unrecognized section and content) Goals may be documented in a n alternate sectionNo InformationNo InformationNo InformationNo Information (unrecognized sect ion and content) No Status Records FoundNo Status Records Found INFORMATION SOURCE (unrecogn ized section and content) DATE CREATED AUTHOR 03/11/2022 [facility] DATE CREATED AUTHOR 'S ORGANIZ ATION 02/25/2023 [...] BE BASED ON THE PRIMARY CLINICAL RECORDS. [facility] [employer] [facility]. provides no warranty or guarantee of the accuracy or completeness of information in this document.
== END 2024-11-20 11:53 | disposition home or self-care (01) ==
LOC: WC 11-22 11:52
PROVIDERS: PCP Podiatrist Foot & Ankle Surgery; Visit Provider Physician Assistant
DX: I87.313 Chronic venous hypertension (idiopathic) with ulcer of bilateral lower extremity (principal); L97.811 Non-pressure chronic ulcer of other part of right lower leg limited to breakdown of skin; L97.822 Non-pressure chronic ulcer of other part of left lower leg with fat layer exposed
CPT/HCPCS: 29580

== ENCOUNTER 2024-12-03 15:23 | Outpatient (OUT) | payer MEDICARE, SELFPAY | END 2024-12-03 15:24 | disposition home or self-care (01) | LOC: WC 15:23 | PROVIDERS: PCP Podiatrist Foot & Ankle Surgery; Visit Provider Physician Assistant | DX: I87.313 Chronic venous hypertension (idiopathic) with ulcer of bilateral lower extremity (principal); L97.811 Non-pressure chronic ulcer of other part of right lower leg limited to breakdown of skin; L97.821 Non-pressure chronic ulcer of other part of left lower leg limited to breakdown of skin | CPT/HCPCS: 29580 ==

== ENCOUNTER 2024-12-31 10:24 | Outpatient (OUT) | payer MEDICARE, SELFPAY ==
--- OUTSIDE RECORDS SUMMARY | 2024-12-31 10:39 | XMS_ITS | CCD ---
Author Organization [facility]ini[facility] Care Team Providers Care Associate Media Director Name Role Phone MD Blake Millard Attending Provider [phone] NO FAMILY, PHYSICIAN Primary Care Provider Unava [...] source) Sulfamethoxazole / Trimethoprim Drug Allergy 2 [facility] Repository (2 sources) Sulfamethox[facility] / [facility] Medications Current Medications Medication Drug [...] mg extended release oral capsule (5 sources) B-hlhmwl-G-aspartate Receptor Antagonist Memantine HCl ER 28 MG [...] before bedtime. 0 Active polyethylene glycol 3350 96396 mg powder for oral solution (6 sources) [...] Long-term current use of anticoagulant; Translations: [intermediate card tender (current) use of anticoagulants] 11-20-2023 Episodic Other [...] venous duplex [place] venous duplex [facility] [place] [address] Ultrasound Report Signed Patient: Tayo Uribe MR#: [id number] : 1935 Acct:[id number] Age/Sex: 86 / M ADM Date: 02/21/22 Loc: [facility] Room: Type: [facility] Attending Dr: Blake Millard MD Ordering [...] Tigre Dorsey MD02/23/2022 1:03 PM Dictation Location: [place] [address] Tech: Sophia Thomas Transcribed By: JHON 02/23/22 1303 Dictated By: Tigre Dorsey MD 02/23/22 1302 Signed By: 02/23/22 1303 [facility] Vital Signs Date Time Vital Sign Value Performing Clinician Facility 11-20-2023 09:40-0500 Body weight 97.43 kg Tosha Aguirre MD Work Phone: [facility] 11-20-2023 09:40-0500 Diastolic blood pressure 58 mm[Hg] Tosha Aguirre MD Work Phone: [facility] 11-20-2023 09:40-0500 Heart rate 60 /min Tosha Aguirre MD Work Phone: [facility] 11-20-2023 09:40-0500 Systolic blood pressure 126 mm[Hg] Tosha Aguirre MD Work Phone: [facility] 05-23-2022 12:30-0400 Body height 187.96 cm Raven Prosper Other [employer] Other 05-23-2022 12:30-0400 Body mass index (BMI) [Ratio] 26.32 kg/m2 Raven Prosper Other [employer] Other 05-23-2022 12:30-0400 Body temperature 97 [degF] Raven Prosper Other [employer] Other 05-23-2022 12:30-0400 Body weight 92.99 kg Raven Orantesrenetta Other [employer] Other 05-23-2022 12:30-0400 Diastolic blood pressure 46 mm[Hg] Raven Cheng Other [employer] Other 05-23-2022 12:30-0400 SaO2% (BldA) [Mass fraction] 97 % Raven Oranteso Other [employer] Other 05-23-2022 12:30-0400 Systolic blood pressure 110 mm[Hg] Raven Oranteso Other [employer] Other 02-21-2022 12:45-0400 Body height 187.96 cm Raven Oranteso Other [employer] Other 02-21-2022 12:45-0400 Body temperature 97.2 [degF] Raven Oranteso Other [employer] Other 02-21-2022 12:45-0400 Diastolic blood pressure 60 mm[Hg] Raven Oranteso Other [employer] Other 02-21-2022 12:45-0400 SaO2% (BldA) [Mass fraction] 99 % Raven Cheng Other [employer] Other 02-21-2022 12:45-0400 Systolic blood pressure 138 mm[Hg] Raven Oranteso Other [employer] Other 12-28-2021 11:45-0400 Body height 187.96 cm Blake Millard Other [employer] Other 12-28-2021 11:45-0400 Body mass index (BMI) [Ratio] 26.32 kg/m2 Blake Millard Other [employer] Other 12-28-2021 11:45-0400 Body temperature 96.6 [degF] Blake Millard Other [employer] Other 12-28-2021 11:45-0400 Body weight 92.99 kg Blake Millard Other [employer] Other 12-28-2021 11:45-0400 Diastolic blood pressure 70 mm[Hg] Blake Millard Other [employer] Other 12-28-2021 11:45-0400 SaO2% (BldA) [Mass fraction] 97 % Blake Millard Other [employer] Other 12-28-2021 11:45-0400 Systolic blood pressure 118 mm[Hg] Blake Millard Other [employer] Other Encounters Encounter Date Encounter Type Care Provider Facility Start: 11-20-2023 Fair Observerheet Tosha ernst MD Work Phone: [facility] Start: 11-20-2023 Mr. Youth Tosha ernst MD Work Phone: [facility] Start: 11-20-2023 End: 11-20-2023 Office outpatient visit 25 minutes Tosha Aguirre MD Work Phone: [facility] Comment on above: Type 2 diabetes marbin itus with foot ulcer, with long-term current use of insulin ([facility]) (Primary Dx); Chronic atrial fibrillation, unspecified (I48.20); Unspecified mood [affective] disorder (F39); Other ventricular tachycardia (I47.29); 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 gangrene, with long-term current use of insulin ([facility]); Peripheral vascular disease, unspecified (I73.9); Dementia without behavioral disturbance, psychotic disturbance, mood disturbance, or anxiety, unspecified dementia severity, unspecified dementia type (CMS/HCC); Non-pressure chronic ulcer of other part of right foot with fat layer exposed (L97.512); Heart failure, unspecified HF chronicity, unspecified heart failure type ([facility]); 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; intermediate card tender current use of anticoagulant; Advanced age; Gait disturbance; Essential (primary) hypertension ([facility]); Urinary incontinence, unspecified type; Other cerebral infarction due to occlusion or stenosis of small artery ([facility]); DM type 2 with diabetic peripheral neuropathy ([facility]) Start: 02-24-2023 End: 02-25-2023 ambulatory [...] 05-23-2022 End: 05-23-2022 ambulatory Raven Cheng Other [employer] Other Start: 05-23-2022 Office outpatient vi sit [...] [facility] [employer] Other Start: 02-21-2022 Follow-up encounter [facility] Start: 02-21-2022 End: 02-21-2022 Patient encounter procedure MD Blake Millard Work Phone: [facility]Ul[facility] Start: 12-28-2021 End: 12-28-2021 ambulatory Blake Millard Other [facility] [employer] Other Start: 12-28-2021 Office outpatient ne w 45 minutes Blake Millard [facility] Vascular Surgery Plan of Treatment Date Care Activity Detail Author Start: 02-19-2024 End: 02-19-2024 Patient encounter procedure 02/19/2024 10:30 AM EDT Office Visit [facility] [address] [place] [address] Tosha Aguirre MD [address] [place], [place] [id number] [facility] Start: 01-17-2024 Hemoglobin A1c measurement Diabetes: Hemoglobin A1C [facility] Start: 11-20-2023 End: 11-20-2023 Patient encounter procedure 11/20/2023 9:30 AM EST Office Visit [facility] [address] [place] [id number] Tosha Aguirre MD [address] [place] [address] 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 (Primary Dx); Other [...] scan of lower limb veins venous duplex [facility] Start: 1945 Glaucoma screening Diabetes: R etinopathy Screening [facility] Healthcare Start: 1935 Medicare Annual Well ness (AWV) Medicare Annual Wellness (AWV) [facility] Immunizations Immunization Date Immunization Notes Care Provider Fa cility 09-05-2023 Pneumococcal Conjuga te PCV 20 Tosha Aguirre MD Work Phone: [facility] 07-21-2023 Influenza, High-dose Seasonal, Quadrivalent, Preservative Free Tosha Aguirre MD Work Phone: [facility] 08-02-2022 Influenza, High-dose Seasonal, Quadrivalent, Preservative Free Tosha Aguirre MD Work Phone: [facility] 11-22-2021 influenza, high dose seasonal, preservative-free Tosha Aguirre MD Work Phone: [facility] 09-11-2020 Influenza, High-dose Seasonal, Quadrivalent, Preservative Free Tosha Aguirre MD Work Phone: [facility] 09-05-2019 influenza, high dose seasonal, preservative-free Tosha Aguirre MD Work Phone: [facility] 09-12-2017 influenza, high dose seasonal, preservative-free Tosha Aguirre MD Work Phone: [facility] Payers Date Payer Category Payer Unknown AARP AARP [id number] 2022-Present [address] [place] [address] [id number] 2002 Medicare MEDICARE MEDICAR E PART B [id number] 2002-Present [address] [address] [place] [address] Medicare [id number] 1959 Medicare [id number] 1959 Unknown [id number] 1937 Unknown [id number] [id number]3 1937 Unknown [id number] 2.16.840.1.055798.3.579.2.593 1937 Unknown [id number] 2.16.840.1.768359.3.579.2.593 1937 Unknown [id number] 2.16.840.1.985857.3.579.2.593 1937 Unknown [id number] 2.16.840.1.455482.3.579.2.593 1937 Unknown [id number] 2.16.840.1.149757.3.579.2.593 1937 Unknown [id number] 2.16.840.1.313525.3.579.2.593 1937 Unknown [id number] 2.16.840.1.703491.3.579.2.593 1937 Unknown [id number] 2.16.840.1.323764.3.579.2.593 1937 Unknown [id number] 2.16.840.1.470674.3.579.2.593 1937 Unknown [id number] 2.16.840.1.523999.3.579.2.593 1937 Unknown [id number] 2.16.840.1.453776.3.579.2.593 1937 Unknown [id number] 2.16.840.1.103281.3.579.2.593 1937 Unknown [id number] 2.16.840.1.457335.3.579.2.593 1937 Unknown [id number] 2.16.840.1.671322.3.579.2.593 1937 Unknown [id number] 2.16.840.1.978102.3.579.2.593 Self-pay Self Pay [id number] Social History Date Type Detail Facility Tobacco smoking status NHIS Unknown if ever smoked [facility] [employer] Other Start: 1935 Sex Assigned At Male [facility] Start: 11-20-2023 Sex Assigned At [facility] [employer] Other Tobacco smoking status NHIS Tobacco smoking [...] HPI: Pt is a resident of [facility]. He is currently seeing wound care. Pt [...] ulcer, with long-term current use of insulin ([facility]) sees wound care 2. Chronic atrial fibrillation, unspecified (I48.20) heart rate is controlled. Pt is no seeing cardiology, they dismissed him due to other comorbidities, emphasis on comfort 3. Unspecified mood [affective] disorder (F39) 4. Other ventricular tachycardia (I47.29) denies palpitations 5. 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 gangrene, with long-term current use of insulin ([facility]) eye exam 6. Peripheral vascular disease, unspecified (I73.9) sees wound care 7. Dementia without behavioral disturbance, psychotic disturbance, mood disturbance, or anxiety, unspecified dementia severity, unspecified dementia type ([facility]) 8. Non-pressure chronic ulcer of other part of right foot with fat layer exposed (L97.512) 9. Heart failure, unspecified HF chronicity, unspecified heart failure type ([facility]) no sign of CHF at this time, stable 10. 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 11. intermediate card tender current use of anticoagulant 12. Advanced age emphasis on comfort, Resides at [facility] 13. Gait disturbance walking with a cane 14. Essential (primary) hypertension (CMS/HCC) 15. Urinary incontinence, unspecified type 16. Other cerebral infarction due to occlusion or stenosis of small artery ([facility]) 17. DM type 2 with diabetic peripheral neuropathy ([facility]) I will follow up on his DNR paperwork. Encouraged eye exam Hgba1c is 7.0 was 6.8 Pt wants to be kept comfortable at [facility] and no hospitalization per and daughter. His answers most of his questions. They have been 65 yrs this week. Follow up in 3 months with his . Spent over 30 min problem focused care with over 50% in counseling documented in this encounter [facility] Clinical Note 07-22-2022 Note Date & [...] authenticated by: MIRIAM OTERO Date: 2022-07-22 11:18 [facility] Evaluation note 05-23-2022 Note Date & [...] basis should he deteriorate in any way. [employer] Other Clinical Note 04-01-2022 Note Date & [...] by: DESMOND BOSTON Date: 2022-04-01 18:12 [facility] Evaluation note 02-21-2022 Note Date & [...] understanding, agrees this plan, deny any questions. [employer] Other Evaluation note 12-28-2021 Note Date & [...] him back once that study is accomplished. [employer] Other Evaluation note Note Date & Type Note Facility Evaluation note No assessment information availa [facility] Work Phone: Evaluation note Note Date [...] heart failure type (CMS/HCC) 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 intermediate card tender current use of anticoagulant Advanced age Gait [...] cataract removal left Hospitalization History see above [employer] Other Chief Complaint and Reason for Visit [...] PHYSICIAN NO FAMILY Primary Care Provider Active Associate Media Director Relationship Specialty Start Date End Date Tosha Aguirre MD [address] [facility] [place] [address] PCP - ACO Reach 03/09/23 Tosha Aguirre MD [address] [facility] [place] [address] PCP - General Family Medicine 02/21/23 Rosina Valdez, RN [address] [facility] [place] [address] Registered Nurse Family Medicine 10/31/23 Dinora Stroud LSW [employer] [facility] 11/17/23 Associate Media Director Relationship Specialty Start Date End Date Tosha Aguirre MD [address] [facility] [place] [address] PCP - ACO Reach 03/09/23 Tosha Aguirre MD [address] [facility] [place] [address] PCP - General Family Medicine 02/21/23 Rosina Valdez, RN [address] [facility] [place] [address] Registered Nurse Family Medicine 10/31/23 Dinora Stroud [facility] Field Software [employer] [facility] 11/17/23 Goals (unrecognized section and content) Goals may be documented in a n alternate sectionNo InformationNo InformationNo InformationNo Information (unrecognized sect ion and content) No Status Records FoundNo Status Records Found INFORMATION SOURCE (unrecogn ized section and content) DATE CREATED AUTHOR 03/11/2022 [facility] DATE CREATED AUTHOR 'S ORGANIZ [...] BE BASED ON THE PRIMARY CLINICAL RECORDS. [facility] [employer] [facility]. provides no warranty or guarantee of the accuracy or completeness of information in this document.
== END 2024-12-31 10:25 | disposition home or self-care (01) ==
LOC: WC 10:24
PROVIDERS: PCP Podiatrist Foot & Ankle Surgery; Visit Provider Physician Assistant
DX: I87.313 Chronic venous hypertension (idiopathic) with ulcer of bilateral lower extremity (principal); L97.811 Non-pressure chronic ulcer of other part of right lower leg limited to breakdown of skin; L97.821 Non-pressure chronic ulcer of other part of left lower leg limited to breakdown of skin
CPT/HCPCS: 29580

== ENCOUNTER 2025-01-28 10:26 | Outpatient (OUT) | payer MEDICARE, SELFPAY ==
--- OUTSIDE RECORDS SUMMARY | 2025-01-28 10:29 | XMS_ITS | CCD ---
Author Organization [facility] CliniSyms Care Team Providers Care Bingo Manager Name Role Phone MD Blake Millard Attending [...] source) Sulfamethoxazole / Trimethoprim Drug Allergy 2 [facility] Repository (2 sources) Sulfamethoxazole / [facility] Medications Current Medications Medication Drug [...] mg extended release oral capsule (5 sources) I-djqhoq-S-aspartate Receptor Antagonist Memantine HCl ER 28 MG [...] before bedtime. 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] 11-20-2023 Episodic Other [...] venous duplex [place] venous duplex [facility] [place] [address] Ultrasound Report Signed Patient: Tayo Uribe MR#: [id number] 39 : 1935 Acct:[id number] Age/Sex: 86 / M ADM Date: 02/21/22 Loc: [facility] Room: Type: [facility] Attending Dr: Blake Millard MD [...] Tigre Dorsey MD02/23/2022 1:03 PM Dictation Location: [place] [address] Tech: Sophia Thomas Transcribed By: JHON 02/23/22 1303 Dictated By: Tigre Dorsey MD 02/23/22 1302 Signed By: 02/23/22 1303 [facility] Vital Signs Date Time Vital Sign Value Performing Clinician Facility 11-20-2023 09:40-0500 Body weight 97.43 kg Tosha Aguirre MD Work Phone: [facility] 11-20-2023 09:40-0500 Diastolic blood pressure 58 mm[Hg] Tosha Aguirre MD Work Phone: [facility] 11-20-2023 09:40-0500 Heart rate 60 /min Tosha Aguirre MD Work Phone: [facility] 11-20-2023 09:40-0500 Systolic blood pressure 126 mm[Hg] Tosha Aguirre MD Work Phone: [facility] 05-23-2022 12:30-0400 Body height 187.96 cm Raven Prosper Other [facility] Other 05-23-2022 12:30-0400 Body mass index (BMI) [Ratio] 26.32 kg/m2 Raven Prosper Other [facility] Other 05-23-2022 12:30-0400 Body temperature 97 [degF] Raven Prosper Other [facility] Other 05-23-2022 12:30-0400 Body weight 92.99 kg Raven Orantesrenetta Other [facility] Other 05-23-2022 12:30-0400 Diastolic blood pressure 46 mm[Hg] Raven Cheng Other [facility] Other 05-23-2022 12:30-0400 SaO2% (BldA) [Mass fraction] 97 % Raven Oranteso Other [facility] Other 05-23-2022 12:30-0400 Systolic blood pressure 110 mm[Hg] Raven Oranteso Other [facility] Other 02-21-2022 12:45-0400 Body height 187.96 cm Raven Oranteso Other [facility] Other 02-21-2022 12:45-0400 Body temperature 97.2 [degF] Raven Oranteso Other [facility] Other 02-21-2022 12:45-0400 Diastolic blood pressure 60 mm[Hg] Raven Oranteso Other [facility] Other 02-21-2022 12:45-0400 SaO2% (BldA) [Mass fraction] 99 % Raven Cheng Other [facility] Other 02-21-2022 12:45-0400 Systolic blood pressure 138 mm[Hg] Raven Oranteso Other [facility] Other 12-28-2021 11:45-0400 Body height 187.96 cm Blake Millard Other [facility] Other 12-28-2021 11:45-0400 Body mass index (BMI) [Ratio] 26.32 kg/m2 Blake Millard Other [facility] Other 12-28-2021 11:45-0400 Body temperature 96.6 [degF] Blake Millard Other [facility] Other 12-28-2021 11:45-0400 Body weight 92.99 kg Blake Millard Other [facility] Other 12-28-2021 11:45-0400 Diastolic blood pressure 70 mm[Hg] Blake Millard Other [facility] Other 12-28-2021 11:45-0400 SaO2% (BldA) [Mass fraction] 97 % Blake Millard Other [facility] Other 12-28-2021 11:45-0400 Systolic blood pressure 118 mm[Hg] Blake Millard Other [facility] Other Encounters Encounter Date Encounter Type Care Provider Facility Start: 11-20-2023 [employer] Tosha ernst MD Work Phone: [facility] Start: 11-20-2023 [employer] Tosha ernst MD Work Phone: [facility] Start: 11-20-2023 End: 11-20-2023 Office outpatient visit 25 minutes Tosha Aguirre MD Work Phone: [facility] Comment on above: Type 2 diabetes marbin itus with foot ulcer, with long-term current use of insulin ([facility]) (Primary Dx); Chronic atrial fibrillation, unspecified (I48.20); Unspecified mood [affective] disorder (F39); Other ventricular tachycardia (I47.29); 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 gangrene, with long-term current use of insulin ([facility]); Peripheral vascular disease, unspecified (I73.9); Dementia without behavioral disturbance, psychotic disturbance, mood disturbance, or anxiety, unspecified dementia severity, unspecified dementia type (CMS/HCC); Non-pressure chronic ulcer of other part of right foot with fat layer exposed (L97.512); Heart failure, unspecified HF chronicity, unspecified heart failure type ([facility]); 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; 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; Advanced age; Gait disturbance; Essential (primary) hypertension ([facility]); Urinary incontinence, unspecified type; Other cerebral infarction due to occlusion or stenosis of small artery ([facility]); DM type 2 with diabetic peripheral neuropathy ([facility]) Start: 02-24-2023 End: 02-25-2023 ambulatory [...] 05-23-2022 End: 05-23-2022 ambulatory Raven Cheng Other [facility] Other Start: 05-23-2022 Office outpatient vi sit 25 minutes Raven Cheng [facility] Start: 05-12-2022 End: 05-13-[address] MARIXA CORDERO . Facility:[facility] Start: 04-22-2022 End: 04-23-[address] MARIXA CRODERO . Facility:[facility] Start: 04-01-2022 End: 04-02-[address] DESMOND BOSTON Facility:[facility] Start: 03-21-2022 End: 03-22-[address] MARIXA CORDERO . Facility:[facility] Start: 03-04-2022 End: 03-05-[address] MARIXA CORDERO . Facility:[facility] Start: 02-21-2022 End: 02-21-2022 ambulatory Raven Cheng Other [facility] Other Start: 02-21-2022 Follow-up encounter [facility] Start: 02-21-2022 End: 02-21-2022 Patient encounter procedure MD Blake Millard Work Phone: [facility] Start: 12-28-2021 End: 12-28-2021 ambulatory Blake Millard Other [facility] Other Start: 12-28-2021 Office outpatient ne w 45 minutes Blake Millard [facility] V[facility] Surgery Plan of Treatment Date Care Activity Detail Author Start: 02-19-2024 End: 02-19-2024 Patient encounter procedure 02/19/2024 10:30 AM EDT Office Visit [facility] [address] [place] [address] Tosha Aguirre MD [address] [place], [place] [id number] [facility] Start: 01-17-2024 Hemoglobin A1c measurement Diabetes: Hemoglobin A1C [facility] Start: 11-20-2023 End: 11-20-2023 Patient encounter procedure 11/20/2023 9:30 AM EST Office Visit [facility] [address] [place] [id number] Tosha Aguirre MD [address] [place] [address] 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 (Primary Dx); Other [...] scan of lower limb veins venous duplex [facility] Start: 1945 Glaucoma screening Diabetes: R etinopathy Screening [facility] Healthcare Start: 1935 Medicare Annual Well ness (AWV) Medicare Annual Wellness (AWV) [facility] Immunizations Immunization Date Immunization Notes Care Provider Fa cility 09-05-2023 Pneumococcal Conjuga te PCV 20 Tosha Aguirre MD Work Phone: [facility] 07-21-2023 Influenza, High-dose Seasonal, Quadrivalent, Preservative Free Tosha Aguirre MD Work Phone: [facility] 08-02-2022 Influenza, High-dose Seasonal, Quadrivalent, Preservative Free Tosha Aguirre MD Work Phone: [facility] 11-22-2021 influenza, high dose seasonal, preservative-free Tosha Aguirre MD Work Phone: [facility] 09-11-2020 Influenza, High-dose Seasonal, Quadrivalent, Preservative Free Tosha Aguirre MD Work Phone: [facility] 09-05-2019 influenza, high dose seasonal, preservative-free Tosha Aguirre MD Work Phone: [facility] 09-12-2017 influenza, high dose seasonal, preservative-free Tosha Aguirre MD Work Phone: [facility] Payers Date Payer Category Payer Unknown AARP AARP [id number] 2022-Present [address] [place] [address] [id number] 2002 Medicare MEDICARE MEDICAR E PART B [id number] 2002-Present [address] [address] [place] [address] Medicare [id number] 1959 Medicare [id number] 1959 Unknown [id number] 1935 Unknown [id number] [id number]3 1937 Unknown [id number] 2.16.840.1.031642.3.579.2.593 1937 Unknown [id number] 2.16.840.1.980715.3.579.2.593 1937 Unknown [id number] 2.16.840.1.941064.3.579.2.593 1937 Unknown [id number] 2.16.840.1.210709.3.579.2.593 1937 Unknown [id number] 2.16.840.1.995461.3.579.2.593 1937 Unknown [id number] 2.16.840.1.567436.3.579.2.593 1937 Unknown [id number] 2.16.840.1.895660.3.579.2.593 1937 Unknown [id number] 2.16.840.1.183787.3.579.2.593 1937 Unknown [id number] 2.16.840.1.168326.3.579.2.593 1937 Unknown [id number] 2.16.840.1.588457.3.579.2.593 1937 Unknown [id number] 2.16.840.1.027607.3.579.2.593 1937 Unknown [id number] 2.16.840.1.927344.3.579.2.593 1937 Unknown [id number] 2.16.840.1.921436.3.579.2.593 1937 Unknown [id number] 2.16.840.1.496354.3.579.2.593 1937 Unknown [id number] 2.16.840.1.432166.3.579.2.593 Self-pay Self Pay [id number] Social History Date Type Detail Facility Tobacco smoking status NHIS Unknown if ever smoked [facility] Other Start: 1935 Sex Assigned At Male [facility] Start: 11-20-2023 Sex Assigned At [facility] Other Tobacco smoking status NHIS Tobacco smoking [...] issues. HPI: Pt is a resident of [facility]. He is currently seeing wound care. [...] ulcer, with long-term current use of insulin ([facility]) sees wound care 2. Chronic atrial fibrillation, unspecified (I48.20) heart rate is controlled. Pt is no seeing cardiology, they dismissed him due to other comorbidities, emphasis on comfort 3. Unspecified mood [affective] disorder (F39) 4. Other ventricular tachycardia (I47.29) denies palpitations 5. 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 gangrene, with long-term current use of insulin ([facility]) eye exam 6. Peripheral vascular disease, unspecified (I73.9) sees wound care 7. Dementia without behavioral disturbance, psychotic disturbance, mood disturbance, or anxiety, unspecified dementia severity, unspecified dementia type ([facility]) 8. Non-pressure chronic ulcer of other part of right foot with fat layer exposed (L97.512) 9. Heart failure, unspecified HF chronicity, unspecified heart failure type ([facility]) no sign of CHF at this time, stable 10. 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 Advanced age emphasis on comfort, Resides at [facility] 13. Gait disturbance walking with a cane 14. Essential (primary) hypertension (CMS/HCC) 15. Urinary incontinence, unspecified type 16. Other cerebral infarction due to occlusion or stenosis of small artery ([facility]/HCC) 17. DM type 2 with diabetic peripheral neuropathy ([facility]) I will follow up on his DNR paperwork. Encouraged eye exam Hgba1c is 7.0 was 6.8 Pt wants to be kept comfortable at [facility] and no hospitalization per and daughter. His answers most of his questions. They have been 65 yrs this week. Follow up in 3 months with his . Spent over 30 min problem focused care with over 50% in counseling documented in this encounter [facility] Clinical Note 07-22-2022 Note Date & Type [...] authenticated by: MIRIAM OTERO Date: 2022-07-22 11:18 [facility] Evaluation note 05-23-2022 Note Date & [...] basis should he deteriorate in any way. [facility] Other Clinical Note 04-01-2022 Note Date & [...] by: DESMOND BOSTON Date: 2022-04-01 18:12 [facility] Evaluation note 02-21-2022 Note Date & Type [...] understanding, agrees this plan, deny any questions. [facility] Other Evaluation note 12-28-2021 Note Date & [...] him back once that study is accomplished. 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, [place]) [place] [address] PCP - ACO Reach 03/09/23 Tosha Aguirre MD [address] [facility] [place] [place] [address] PCP - General Family Medicine 02/21/23 Rosina Valdez, RN [address] [facility], [place]) [place] [address] Registered Nurse Family Medicine 10/31/23 Dinora Stroud LSW [facility] Medicine 11/17/23 Bingo Manager Relationship Specialty Start Date End Date Tosha Aguirre MD [address] [facility] [place] [place] [address] PCP - ACO Reach 03/09/23 Tosha Aguirre MD [address] [facility] [place]) [place] [address] PCP - General Family Medicine 02/21/23 Rosina Valdez, RN [address] [facility], [place]) [place] [address] Registered Nurse Family Medicine 10/31/23 Dinora Stroud [facility] Medicine 11/17/23 Goals (unrecognized section and content) Goals may be documented in a n alternate sectionNo InformationNo InformationNo InformationNo Information (unrecognized sect ion and content) No Status Records FoundNo Status Records Found INFORMATION SOURCE (unrecogn ized section and content) DATE CREATED AUTHOR 03/11/2022 [facility] DATE CREATED AUTHOR 'S ORGANIZ ATION 02/25/2023 [...] BE BASED ON THE PRIMARY CLINICAL RECORDS. [employer] [facility]. provides no warranty or guarantee of the accuracy or completeness of information in this document.
== END 2025-01-28 10:27 | disposition home or self-care (01) ==
LOC: WC 10:26
PROVIDERS: PCP Podiatrist Foot & Ankle Surgery; Visit Provider Physician Assistant
DX: R60.0 Localized edema (principal); I87.311 Chronic venous hypertension (idiopathic) with ulcer of right lower extremity; L97.811 Non-pressure chronic ulcer of other part of right lower leg limited to breakdown of skin
CPT/HCPCS: 29580

== ENCOUNTER 2025-02-12 10:16 | Outpatient (OUT) | payer MEDICARE, SELFPAY | END 2025-02-12 10:17 | disposition home or self-care (01) | LOC: WC 10:16 | PROVIDERS: PCP Podiatrist Foot & Ankle Surgery; Visit Provider Physician Assistant | DX: R60.0 Localized edema (principal); I87.311 Chronic venous hypertension (idiopathic) with ulcer of right lower extremity; L97.811 Non-pressure chronic ulcer of other part of right lower leg limited to breakdown of skin | CPT/HCPCS: 29580 ==

== ENCOUNTER 2025-03-04 10:37 | Outpatient (OUT) | payer MEDICARE, SELFPAY ==
--- OUTSIDE RECORDS SUMMARY | 2025-03-04 10:39 | XMS_ITS | CCD ---
Author Organization [facility] CliniSytn Care Team Providers Care Carbonation Tester Name Role Phone MD Blake Millard Attending Provider [phone] NO FAMILY, PHYSICIAN Primary Care Provider Unava [...] Sulfamethoxazole / Trimethoprim Drug Allergy 2 [facility] Repository (2 sources) Sulfamethoxazole / Trimethoprim Drug Allergy 2 [facility] Medications Current Medications Medication Drug Class(es) [...] mg extended release oral capsule (5 sources) K-ayqsqs-D-aspartate Receptor Antagonist Memantine HCl ER 28 MG [...] before bedtime. 0 Active polyethylene glycol 3350 37005 mg powder for oral solution (6 sources) [...] source) Long-term current use of anticoagulant; Translations: [[facility] (current) use of anticoagulants] 11-20-2023 Episodic Other [...] venous duplex LE BIon US venous duplex [facility] [place] [address] Ultrasound Report Signed Patient: Tayo Uribe MR#: [id number] 39 : 1935 Acct:[id number] Age/Sex: 86 / M ADM Date: 02/21/22 Loc: [facility] Room: Type: [facility] Attending Dr: Blake Millard MD [...] Tigre Dorsey MD02/23/2022 1:03 PM Dictation Location: [place] [address] Tech: Sophia Thomas Transcribed By: JHON 02/23/22 1303 Dictated By: Tigre Dorsey MD 02/23/22 1302 Signed By: 02/23/22 1303 [facility] Vital Signs Date Time Vital Sign Value Performing Clinician Facility 11-20-2023 09:40-0500 Body weight 97.43 kg Tosha Aguirre MD Work Phone: [facility] 11-20-2023 09:40-0500 Diastolic blood pressure 58 mm[Hg] Tosha Aguirre MD Work Phone: [facility] 11-20-2023 09:40-0500 Heart rate 60 /min Tosha Aguirre MD Work Phone: [facility] 11-20-2023 09:40-0500 Systolic blood pressure 126 mm[Hg] Tosha Aguirre MD Work Phone: [facility] 05-23-2022 12:30-0400 Body height 187.96 cm Raven Prosper Other [facility] Other 05-23-2022 12:30-0400 Body mass index (BMI) [Ratio] 26.32 kg/m2 Raven Prosper Other [facility] Other 05-23-2022 12:30-0400 Body temperature 97 [degF] Raven Prosper Other [facility] Other 05-23-2022 12:30-0400 Body weight 92.99 kg Raven Orantesrenetta Other [facility] Other 05-23-2022 12:30-0400 Diastolic blood pressure 46 mm[Hg] Raven Cheng Other [facility] Other 05-23-2022 12:30-0400 SaO2% (BldA) [Mass fraction] 97 % Raven Oranteso Other [facility] Other 05-23-2022 12:30-0400 Systolic blood pressure 110 mm[Hg] Raven Oranteso Other [facility] Other 02-21-2022 12:45-0400 Body height 187.96 cm Raven Oranteso Other [facility] Other 02-21-2022 12:45-0400 Body temperature 97.2 [degF] Raven Oranteso Other [facility] Other 02-21-2022 12:45-0400 Diastolic blood pressure 60 mm[Hg] Raven Oranteso Other [facility] Other 02-21-2022 12:45-0400 SaO2% (BldA) [Mass fraction] 99 % Raven Cheng Other [facility] Other 02-21-2022 12:45-0400 Systolic blood pressure 138 mm[Hg] Raven Oranteso Other [facility] Other 12-28-2021 11:45-0400 Body height 187.96 cm Blake Millard Other [facility] Other 12-28-2021 11:45-0400 Body mass index (BMI) [Ratio] 26.32 kg/m2 Blake Millard Other [facility] Other 12-28-2021 11:45-0400 Body temperature 96.6 [degF] Blake Millard Other [facility] Other 12-28-2021 11:45-0400 Body weight 92.99 kg Blake Millard Other [facility] Other 12-28-2021 11:45-0400 Diastolic blood pressure 70 mm[Hg] Blake Millard Other [facility] Other 12-28-2021 11:45-0400 SaO2% (BldA) [Mass fraction] 97 % Blake Millard Other [facility] Other 12-28-2021 11:45-0400 Systolic blood pressure 118 mm[Hg] Blake Millard Other [facility] Other Encounters Encounter Date Encounter Type Care Provider Facility Start: 11-20-2023 Syntensiaheet Tosha ernst MD Work Phone: [facility] Start: 11-20-2023 Rally Fit Tosha ernst MD Work Phone: [facility] Start: 11-20-2023 End: 11-20-2023 Office outpatient visit 25 minutes Tosha Aguirre MD Work Phone: [facility] Comment on above: Type 2 diabetes marbin itus with foot ulcer, with long-term current use of insulin ([facility]) (Primary Dx); Chronic atrial fibrillation, unspecified (I48.20); Unspecified mood [affective] disorder (F39); Other ventricular tachycardia (I47.29); 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 gangrene, with long-term current use of insulin ([facility]); Peripheral vascular disease, unspecified (I73.9); Dementia without behavioral disturbance, psychotic disturbance, mood disturbance, or anxiety, unspecified dementia severity, unspecified dementia type (CMS/HCC); Non-pressure chronic ulcer of other part of right foot with fat layer exposed (L97.512); Heart failure, unspecified HF chronicity, unspecified heart failure type ([facility]); 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; [facility] current use of anticoagulant; Advanced age; Gait disturbance; Essential (primary) hypertension ([facility]); Urinary incontinence, unspecified type; Other cerebral infarction due to occlusion or stenosis of small artery ([facility]); DM type 2 with diabetic peripheral neuropathy ([facility]) Start: 02-24-2023 End: 02-25-[address] MARIXA [...] 05-23-2022 End: 05-23-2022 ambulatory Raven Cheng Other [facility] Other Start: 05-23-2022 Office outpatient vi sit [...] 02-21-2022 End: 02-21-2022 ambulatory Raven Cheng Other [facility] Other Start: 02-21-2022 Follow-up encounter [facility] Start: 02-21-2022 End: 02-21-2022 Patient encounter procedure MD Blake Millard Work Phone: [facility] Start: 12-28-2021 End: 12-28-2021 ambulatory Blake Millard Other [facility] Other Start: 12-28-2021 Office outpatient ne w 45 minutes Blake Millard [facility] Vascular Surgery Plan of Treatment Date Care Activity Detail Author Start: 02-19-2024 End: 02-19-2024 Patient encounter procedure 02/19/2024 10:30 AM EDT Office Visit [facility] [address] [place] [address] Tosha Aguirre MD [address] [place], [place] [id number] [facility] Start: 01-17-2024 Hemoglobin A1c measurement Diabetes: Hemoglobin A1C [facility] Start: 11-20-2023 End: 11-20-2023 Patient encounter procedure 11/20/2023 9:30 AM EST Office Visit [facility] [address] [place] [id number] Tosha Aguirre MD [address] [place] [address] 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 (Primary Dx); Other [...] scan of lower limb veins venous duplex [facility] Start: 1945 Glaucoma screening Diabetes: R etinopathy Screening [facility] Start: 1935 Medicare Annual Well ness (AWV) Medicare Annual Wellness (AWV) [facility] Immunizations Immunization Date Immunization Notes Care Provider Fa cility 09-05-2023 Pneumococcal Conjuga te PCV 20 Tosha Aguirre MD Work Phone: [facility] 07-21-2023 Influenza, High-dose Seasonal, Quadrivalent, Preservative Free Tosha Aguirre MD Work Phone: [facility] 08-02-2022 Influenza, High-dose Seasonal, Quadrivalent, Preservative Free Tosha Aguirre MD Work Phone: [facility] 11-22-2021 influenza, high dose seasonal, preservative-free Tosha Aguirre MD Work Phone: [facility] 09-11-2020 Influenza, High-dose Seasonal, Quadrivalent, Preservative Free Tosha Aguirre MD Work Phone: [facility] 09-05-2019 influenza, high dose seasonal, preservative-free Tosha Aguirre MD Work Phone: [facility] 09-12-2017 influenza, high dose seasonal, preservative-free Tosha Aguirre MD Work Phone: [facility] Payers Date Payer Category Payer Unknown AARP AARP [id number] 2022-Present [address] [place] [address] [id number] 2002 Medicare MEDICARE MEDICAR E PART B [id number] 2002-Present [address] [address] [place] [address] Medicare [id number] 1959 Medicare [id number] 1959 Unknown [id number] 1937 Unknown [id number] [id number] 1937 Unknown [id number] 2.16.840.1.054597.3.579.2.593 1937 Unknown [id number] 2.16.840.1.223941.3.579.2.593 1937 Unknown [id number] 2.16.840.1.947097.3.579.2.593 1937 Unknown [id number] 2.16.840.1.004869.3.579.2.593 1937 Unknown [id number] 2.16.840.1.874602.3.579.2.593 1937 Unknown [id number] 2.16.840.1.506894.3.579.2.593 1937 Unknown [id number] 2.16.840.1.219214.3.579.2.593 1937 Unknown [id number] 2.16.840.1.230790.3.579.2.593 1937 Unknown [id number] 2.16.840.1.871671.3.579.2.593 1937 Unknown [id number] 2.16.840.1.420272.3.579.2.593 1937 Unknown [id number] 2.16.840.1.463175.3.579.2.593 1937 Unknown [id number] 2.16.840.1.776639.3.579.2.593 1937 Unknown [id number] 2.16.840.1.122729.3.579.2.593 1937 Unknown [id number] 2.16.840.1.883949.3.579.2.593 1937 Unknown [id number] 2.16.840.1.007615.3.579.2.593 Self-pay Self Pay [id number] Social History Date Type Detail Facility Tobacco smoking status NHIS Unknown if ever smoked [facility] Other Start: 1935 Sex Assigned At Male [facility] Start: 11-20-2023 Sex Assigned At [facility] Other Tobacco smoking status NHIS Tobacco smoking [...] issues. HPI: Pt is a resident of [facility]. He is currently seeing [...] ulcer, with long-term current use of insulin ([facility]) sees wound care 2. Chronic atrial fibrillation, unspecified (I48.20) heart rate is controlled. Pt is no seeing cardiology, they dismissed him due to other comorbidities, emphasis on comfort 3. Unspecified mood [affective] disorder (F39) 4. Other ventricular tachycardia (I47.29) denies palpitations 5. 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 gangrene, with long-term current use of insulin ([facility]) eye exam 6. Peripheral vascular disease, unspecified (I73.9) sees wound care 7. Dementia without behavioral disturbance, psychotic disturbance, mood disturbance, or anxiety, unspecified dementia severity, unspecified dementia type ([facility]) 8. Non-pressure chronic ulcer of other part of right foot with fat layer exposed (L97.512) 9. Heart failure, unspecified HF chronicity, unspecified heart failure type ([facility]) no sign of CHF at this time, stable 10. 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 Advanced age emphasis on comfort, Resides at [facility] 13. Gait disturbance walking with a cane 14. Essential (primary) hypertension (CMS/HCC) 15. Urinary incontinence, unspecified type 16. Other cerebral infarction due to occlusion or stenosis of small artery ([facility]) 17. DM type 2 with diabetic peripheral neuropathy ([facility]) I will follow up on his DNR paperwork. Encouraged eye exam Hgba1c is 7.0 was 6.8 Pt wants to be kept comfortable at [place] and no hospitalization per and daughter. His answers most of his questions. They have been 65 yrs this week. Follow up in 3 months with his . Spent over 30 min problem focused care with over 50% in counseling documented in this encounter [facility] Clinical Note 07-22-2022 Note Date & [...] by: MIRIAM OTERO Date: 2022-07-22 11:18 [facility] Evaluation note 05-23-2022 Note Date & Type [...] basis should he deteriorate in any way. [facility] Other Clinical Note 04-01-2022 Note Date & [...] by: DESMOND BOSTON Date: 2022-04-01 18:12 [facility] Evaluation note 02-21-2022 Note Date & Type [...] understanding, agrees this plan, deny any questions. [facility] Other Evaluation note 12-28-2021 Note Date & [...] him back once that study is accomplished. 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 Advanced age Gait [...] cataract removal left Hospitalization History see above [facility] Other Chief Complaint and Reason for Visit [...] PHYSICIAN NO FAMILY Primary Care Provider Active Carbonation Tester Relationship Specialty Start Date End Date Tosha Aguirre MD [address] [facility] [place] [address] PCP - ACO Reach 03/09/23 Tosha Aguirre MD [address] [facility] [place] [address] PCP - General Family Medicine 02/21/23 Rosina Valdez, RN [address] [facility] [place] [address] Registered Nurse Family Medicine 10/31/23 Dinora Stroud LSW Behavioral Health Care Manager [facility] Medicine 11/17/23 Carbonation Tester Relationship Specialty Start Date End Date Tosha Aguirre MD [address] [facility] [place] [address] PCP - ACO Reach 03/09/23 Tosha Aguirre MD [address] [facility] [place] [address] PCP - General Family Medicine 02/21/23 Rosina Valdez, RN [address] [facility] [place] [address] Registered Nurse Family Medicine 10/31/[address] [facility] Behavioral Health Care Manager [facility] Medicine 11/17/23 Goals (unrecognized section and content) Goals may be documented in a n alternate sectionNo InformationNo InformationNo InformationNo Information (unrecognized sect ion and content) No Status Records FoundNo Status Records Found INFORMATION SOURCE (unrecogn ized section and content) DATE CREATED AUTHOR 03/11/2022 [facility] DATE CREATED AUTHOR 'S ORGANIZ ATION [...] BE BASED ON THE PRIMARY CLINICAL RECORDS. [facility] [employer] [facility]. provides no warranty or guarantee of the accuracy or completeness of information in this document.
== END 2025-03-04 10:38 | disposition home or self-care (01) ==
LOC: WC 10:37
PROVIDERS: PCP Podiatrist Foot & Ankle Surgery; Visit Provider Physician Assistant
DX: I87.313 Chronic venous hypertension (idiopathic) with ulcer of bilateral lower extremity (principal); L97.811 Non-pressure chronic ulcer of other part of right lower leg limited to breakdown of skin; L97.821 Non-pressure chronic ulcer of other part of left lower leg limited to breakdown of skin
CPT/HCPCS: 29580

== ENCOUNTER 2025-03-27 13:05 | Outpatient (OUT) | payer MEDICARE, SELFPAY ==
--- OUTSIDE RECORDS SUMMARY | 2025-03-27 13:08 | XMS_ITS | Clinical Summary ---
Author Organization [employer] tem Address [id number] [address] [place] [address] Care Team Providers Care Ready Mix Truck Driver Name Role Phone Tosha Aguirre MD Primary Care Provider [phone] Allergies Active Allergy Reactions Criticality Noted Date Comments Sulfamethoxazole-Trimethoprim Rash Low 2021 Medications canagliflozin (INVOKANA) 100 mg tablet daily. Active LEVEMIR FLEXTOUCH U-100 INSULN 100 unit/mL (3 mL) insulin pen 34 Units daily. 10/18/2021 Active memantine (NAMENDA XR) 28 mg capsule,sprinkl e,ER 24hr 28 mg once daily at bedtime. 09/28/2021 Active quinapriL (ACCUPRIL) 20 mg tablet Take 10 mg by mouth nightly. 11/21/2021 Active omeprazole (PriLOSEC) 40 mg capsule Take 40 mg by mouth in the morning. Active zinc gluconate 50 mg tablet Take 50 mg by mouth in the morning. Active ascorbic acid, vitamin C, (VITAMIN C) 250 mg tablet Take 250 mg by mouth in the morning and 250 mg before bedtime. Active lidocaine (LIDODERM) 5 % Place 1 patch on the skin daily. Remove & Discard patch within 12 hours or as directed by Active polyethylene glycol (GLYCOLAX) 17 gram packet Take 17 g by mouth in the morning. Active insulin aspart U-100 (NovoLOG) 100 unit/mL injectionIndica tions:type 2 diabetes mellitus Inject under the skin 4 (four) times daily before meals and at bedtime as needed for high blood sugar Indications: type 2 diabetes mellitus. SLIDING SCALE. 141-200 give 2 units. 201-250 give 4 units. 251-300 give 6 units. 301-350 give 8 units. 351-400 give 10 units. Greater than 400 give 10 units and call MD. Active clopidogreL (PLAVIX) 75 mg tablet Take 75 mg by mouth in the morning. Active aspirin 81 mg Take 81 mg by mouth in the morning. Active amLODIPine (NORVASC) 5 mg tablet Take 5 mg by mouth in the morning. Active cyanocobalamin 1000 MCG tablet Take 1 tablet (1,000 mcg total) by mouth in the morning. 03/27/2022 Active furosemide (LASIX) 40 mg tablet Take 1 tablet (40 mg total) by mouth daily. 03/27/2022 Active spironolactone (ALDACTONE) 25 mg tablet Take 0.5 tablets (12.5 mg total) by mouth in the morning. 03/27/2022 Active Active Problems Problem Noted Date Diagnosed Date Diabetic ulcer of toe of rig ht foot associated with type 2 diabetes mellitus, with fat layer exposed 03/24/2022 AMS (altered mental status) 03/23/2022 Fall 03/23/2022 Community acquired pneumonia 03/22/2022 Sepsis, unspecified organism 12/09/2021 Cellulitis of right lower limb 12/09/2021 Unspecified open wound, righ t lower leg, subsequent encounter 12/09/2021 Type 2 diabetes mellitus without complications 0 12/09/2021 Non-pressure chronic ulcer o f other part of right foot with fat layer exposed 12/09/2021 Encounter for surgical after care following surgery on the skin and subcutaneous tissue 12/09/2021 Heart failure, unspecified 12/09/2021 Chronic atrial fibrillation, unspecified 022 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 12/09/2021 Unspecified dementia without behavioral disturba nce 12/09/2021 Overview (07/16/2023): replacing diagnoses that were inactivated after the 07/16 regulatory import Peripheral vascular disease, unspecified 022 Anemia, unspecified 12/09/2021 Hyperlipidemia, unspecified 12/09/2021 Vitamin deficiency, unspecified 12/09/2021 Venous insufficiency (chronic) (peripheral) 11/17 Spinal stenosis, site unspecified 12/09/2021 Hyperglycemia, unspecified 12/09/2021 Unspecified protein-calorie malnutrition 022 Unspecified mood (affective) disorder 12/09/2021 Diverticulosis of intestine, part unspecified, without perforation or abscess without bleeding 12/09/2021 Gastrointestinal hemorrhage, unspecified 022 Diaphragmatic hernia without obstruction or gang jodron 12/09/2021 Mild cognitive impairment, so stated 12/09/2021 Overview (07/16/2023): replacing diagnoses that were inactivated after the 07/16 regulatory import Muscle weakness (generalized) 12/09/2021 Disorientation, unspecified 12/09/2021 Other microscopic hematuria 12/09/2021 Ventricular tachycardia 12/09/2021 Weakness 12/09/2021 Disorder of pigmentation, unspecified 12/09/2021 Other abnormalities of gait and mobility History of falling 12/09/2021 Restlessness and agitation 12/09/2021 Cognitive communication deficit 12/09/2021 Gastro-esophageal reflux disease without esophag itis 12/09/2021 Acidosis 12/09/2021 Ventral hernia without obstruction or gangrene 0 12/09/2021 Unspecified urinary incontinence 12/09/2021 Nausea & vomiting 12/09/2021 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 Patient declined 03/23/2022 How often do you get togethe r with friends or relatives? Patient declined 03/23/2022 How often do you attend orthodoxy or baptist serv ices? Patient declined 03/23/2022 Do you belong to any clubs o r organizations such as orthodoxy groups, unions, fraternal or athletic groups, or school groups? Patient declined 03/23/2022 How often do you attend meet ings of the clubs or organizations you belong to? Patient declined 03/23/2022 Are you , , di vorced, , never , or living with a partner? 03/23/2022 AUDIT-C Answer Date Recorded Q1: How often do you have a drink containing alcohol? Never 03/23/2022 Q2: How many drinks containi ng alcohol do you have on a typical day when you are drinking? Patient does not drink Q3: How often do you have si x or more drinks on one occasion? Never 03/23/2022 Overall Financial Resource Strain (CARDIA) Answe r Date Recorded How hard is it for you to pa y for the very basics like food, housing, medical care, and heating? Not hard at all 03/23/2022 PHQ-2 Answer Date Recorded Total Score 0 03/23/2022 [facility] - Occupational Stress Questionnaire Answer Date Recorded Do you feel stress - tense, restless, nervous, or anxious, or unable to sleep at night because your mind is troubled all the time - these days? Not at all 03/23/2022 Exercise Vital Sign Answer Date Recorde d On average, how many days pe r week do you engage in moderate to strenuous exercise (like a brisk walk)? 0 days 03/23/2022 On average, how many minutes do you engage in exercise at this level? 0 min 03/23/2022 PRAPARE - Transportation Answer Date Re corded In the past 12 months, has l ack of transportation kept you from medical appointments or from getting medications? No 05/2022 In the past 12 months, has l ack of transportation kept you from meetings, work, or from getting things needed for daily living? No 03/23/2022 Childcare Answer Date Recorded Do problems getting child ca re make it difficult for you to work or study? No 03/23/2022 Employment Answer Date Recorded Do you need help finding a l ocal career center and/or a training program? No 03/23/2022 Purpose - Life Answer Date Recorded I have a purpose and direction in my life. Stron gly Agree 03/23/2022 Sex and Gender Information Value Date Recorded Sex Assigned at Not on file Legal Sex Male 2:36 PM EST Gender Identity Not on file Sexual Orientation Straight 03/23/2022 12 :10 AM EDT Last Filed Vital Signs Vital Sign Reading Time Taken Comments Blood Pressure 132/64 03/26/2022 6:49 AM EDT Pulse 56 03/26/2022 6:49 AM EDT Temperature 36.5 C (97.7 F) 03/26/2022 6:49 AM EDT Respiratory Rate 18 03/26/2022 6:49 AM EDT Oxygen Saturation 93% 03/26/2022 6:49 AM EDT Inhaled Oxygen Concentration - - Weight 97.8 kg (215 lb 9.6 oz) 03/25/2022 2:20 A M EDT Height 188 cm (6' 2.02 ) 03/24/2022 9:37 AM EDT Body Mass Index 27.67 03/24/2022 9:37 AM EDT Plan of Treatment Health Maintenance Due Date Last Done Comments Tobacco Screening 1947 DTaP,Tdap and Td Vaccines (1 - Tdap) 1956 Zoster (Shingles) Vaccine (1 of 2) 1987 Fall Risk Screening 2002 Depression Screening 03/23/2023 COVID-19 Vaccine (3 - 2023-2 5 season) 2024 02/10/2021, 01/13/2021 Influenza Vaccine 06/16/2025 11/22/2021, , 09/05/2019, Additional history exists Goals Goal Patient Goal Type Associated Problems Recent Progress Patient-Stated? Author ECF return General Yes Cherelle Noonan LSW Note: Evaluation of progress towards goal: Per pt darleen Briceño plan is to return to [place] [facility]. Medical Devices Not on file Insurance MEDICARE Advance Directives * Full Code (Latest Code Status on File) Date Activated Date Inactivated Comments 03/23/2022 2:24 AM 03/26/2022 3:32 PM Care Teams Ready Mix Truck Driver Relationship Specialty Start Date End Date Tosha Aguirre MD [address] [place] [address] PCP - General Family Medicine 03/22/22
--- OUTSIDE RECORDS SUMMARY | 2025-03-27 13:08 | XMS_ITS | Encounter Summary ---
Author Organization [facility] Address [address] [place] [address] Care Team Providers Care Crushing Foreman Name Role Phone Tosha Aguirre MD Unavailable [phone] Tosha Aguirre MD Primary Care Provider [phone] Rosina Valdez RN Unavailable [phone] Dinora Stroud J2EE DEVELOPER Unavailable [phone] Unallocated, Noms Provider Primary Care Provi dinora Tato Cody MD Unavailable Encounter Details Date Type Department Care Team (Late st Contact Info) Description 11/08/2023 Orders Only [facility] [address] [place] [address] Tosha Aguirre MD Social History Tobacco Use Types Packs/Day Years Used Date Smoking Tobacco: Never Assessed Sex and Gender Information Value Date Recorded Sex Assigned at Not on file Legal Sex Male 7:37 PM EDT Gender Identity Not on file Sexual Orientation Not on file documented as of this encounter Plan of Treatment Not on file documented as of this encounter Procedures Procedure Name Priority Date/Time Associated Diagnosis Comments HEMOGLOBIN A1C Routine 10/18/2023 12:26 PM EST COMPREHENSIVE METABOLIC PANEL Routine 10/18/2023 12:26 PM EST documented in this encounter Results * Hemoglobin A1c (10/18/2023 12:26 PM EST) HEMOGLOBIN A1C 7.0 Blood Venous blood specimen / Unknown Tosha Aguirre MD LAB BLOOD ORDERABLES Edited R esult - Final * Comprehensive metabolic panel (10/18/2023 12:26 PM EST) CREATININE 1.4 GLUCOSE 130 BUN 59 BUN/CREATININE RATIO 41 AST 12 SGPT/ALT 8 CALCIUM 9.0 Sodium 142 POTASSIUM 4.3 TOTAL PROTEIN 5.3 ALBUMIN LEVEL 3.5 GLOBULIN 2 Blood Venous blood specimen / Unknown Tosha Aguirre MD LAB BLOOD ORDERABLES Edited R esult - Final documented in this encounter Visit Diagnoses Not on filedocumented in this encounter Care Teams Crushing Foreman Relationship Specialty Start Date End Date Tosha Aguirre MD PCP - ACO Reach 03/09/23 11/21/24 Tosha Aguirre MD PCP - General Family Medicine 02/21/23 01/03/24 Unallocated, Noms Provider, [address] [place] [address] PCP - General Family Medicine 01/04/24 Tato Cody MD [address] [place] [address] [address] [place] [address] PCP - ACO Reach 11/22/24 Rosina Valdez, RN [address] [place] [address] Registered Nurse Family Medicine 10/31/23 01/15/24 Dinora Stroud LSW Spanish Linguist Family Medicine 11/17/23 12/11/23 documented as of this encounter
--- OUTSIDE RECORDS SUMMARY | 2025-03-27 13:08 | XMS_ITS | Clinical Summary ---
Author Organization [facility] Healthcare Address [address] [place] [address] Care Team Providers Care Division Controller Name Role Phone Unallocated, Noms Provider Primary Care Provi dinora Tato Cody MD Unavailable Allergies Active Allergy Reactions Criticality Noted Date Comments Sulfamethoxazole-Trimethoprim Rash Low 2021 Medications acetaminophen (Tylenol) 500 MG tablet every 8 (eight) hours Active ammonium lactate (Lac-Hydrin) 12 % lotion 1 application every 12 (twelve) hours Active aspirin 81 MG EC tablet Take 1 tablet by mouth in the morning. Active atorvastatin (Lipitor) 10 MG tablet 1 (one) time each day at the same time Active clopidogrel (Plavix) 75 MG tablet Take 1 tablet by mouth in the morning. Active Santyl 250 UNIT/GM ointment Per wound clinic 3 Active fluticasone (Flonase) 50 MCG/ACT nasal spray 3 Active furosemide (Lasix) 40 MG tablet Take 1 tablet by mouth in the morning. Active Invokana 100 MG Take 1 tablet by mouth in the morning. Active Levemir FlexTouch 100 UNIT/ML pen Inject 42 Units under the skin in the morning. Active Memantine HCl ER 28 MG capsule sustained-relea se 24 hr 1 capsule at bedtime Active polyethylene glycol, PEG, 3350 (MiraLax) 17 GM/SCOOP powder as directed Orally Active ascorbic acid (Vitamin C) 250 MG tablet 1 tablet Orally Twice a day Active NovoLOG FLEXPEN 100 UNIT/ML pen SLIDING SCALE. 141-200 give 2 units. 201-250 give 4 units. 251-300 give 6 units. 301-350 give 8 units. 351-400 give 10 units. Greater than 400 give 12 units and call MD. 3 Active magnesium hydroxide (Milk of Magnesia) 400 MG/5ML suspension 5 ml at least 4 hours between doses as needed Orally Once a day Active omeprazole (PriLOSEC) [address] capsule Take 1 capsule every day by oral route for 30 days. Active spironolactone (Aldactone) 25 MG tablet Take 0.5 tablets every day by oral route. Active triamcinolone (Kenalog) 0.1 % cream Active cyanocobalamin (Vitamin B-12) 1000 MCG tablet Take 1,000 mcg by mouth in the morning. Active Pollen Extracts (PROSTAT PO) Take 30 mL by mouth in the morning and 30 mL before bedtime. 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 024 Acute CVA (cerebrovascular accident) 05/04/2023 Advanced age 0705/04/2023 Constipation 05/04/2023 Gait disturbance 05/04/2023 Insomnia 05/04/2023 Neuropathy 05/04/2023 Nightmares 05/04/2023 Peripheral polyneuropathy 05/04/2023 Second degree heart block 05/04/2023 Type 2 diabetes mellitus wit h diabetic peripheral angiopathy without gangrene 05/04/2023 Diabetic ulcer of toe of rig ht foot associated with type 2 diabetes mellitus, with fat layer exposed 03/24/2022 Altered mental status 03/23/2022 Anemia, unspecified 12/09/2021 Chronic atrial fibrillation 12/09/2021 Non-pressure chronic ulcer o f other part of right foot with fat layer exposed 12/09/2021 Cognitive communication deficit 12/09/2021 Heart failure, unspecified 12/09/2021 Dementia without behavioral disturbance 12/09/19 22 Overview (11/08/2023): replacing diagnoses that were inactivated after the 07/16 regulatory import Ventral hernia without obstruction or gangrene 0 12/09/2021 Diverticulosis of intestine, part unspecified, without perforation or abscess without bleeding 12/09/2021 Essential (primary) hypertension 12/09/2021 Gastro-esophageal reflux disease without esophag itis 12/09/2021 History of falling 12/09/2021 Hyperlipidemia, unspecified 12/09/2021 Muscle weakness (generalized) 12/09/2021 Peripheral vascular disease, unspecified 022 Spinal stenosis, site unspecified 12/09/2021 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 12/09/2021 Unspecified mood (affective) disorder 12/09/2021 Unspecified protein-calorie malnutrition (HHS-HC C) 12/09/2021 Unspecified urinary incontinence 12/09/2021 Venous insufficiency (chronic) (peripheral) 11/17 Vitamin deficiency, unspecified 12/09/2021 Nonsustained ventricular tachycardia 12/09/2021 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 12/09/2021 Unspecified open wound, righ t lower leg, subsequent encounter 12/09/2021 Weakness 12/09/2021 Disorder of kidney and ureter, unspecified 12/09 Disorder of pigmentation, unspecified 12/09/2021 Gastrointestinal hemorrhage, unspecified 022 Other abnormalities of gait and mobility 022 Resolved Problems Problem Noted Date Diagnosed Date Resolved Date Fall 03/23/2022 05/04/2023 Cellulitis of right lower limb 12/09/2021 05/04/2023 Acidosis 12/09/2021 11/08/2023 Nausea & vomiting 12/09/2021 11/08/2023 Edema, unspecified 12/09/2021 Hyperglycemia, unspecified 12/09/2021 0 11/08/2023 Other microscopic hematuria 12/09/2021 11/08/2023 Sepsis, unspecified organism 12/09/2021 11/08/2023 Restlessness and agitation 12/09/2021 0 11/08/2023 Immunizations Immunization Administration Dates Next Due Influenza, High Dose Seasona l, Preservative Free 11/22/2021,09/05/2019,09/12/2017 Influenza, High-dose Seasona l, Quadrivalent, Preservative Free 07/21/2023,08/02/2022,09/11/2020 Pneumococcal Conjugate PCV 20 09/05/2023 Family History Medical History Relation Name Comments Diabetes Father Breast cancer Mother metastasized Cancer Paternal Grandmother Relation Name Status Comments Father Mother Paternal Grandmother Social History Tobacco Use Types Packs/Day Years Used Date Smoking Tobacco: Never Passive Smoke Exposure: Never Smokeless Tobacco: Never Tobacco Cessation:Counseling Given: Not Answered Alcohol Use Standard Drinks/Week Comments Not Currently 0 (1 standard drink = 0.6 oz pur e alcohol) Sex and Gender Information Value Date Recorded Sex Assigned at Not on file Legal Sex Male 7:37 PM EDT Gender Identity Not on file Sexual Orientation Not on file Last Filed Vital Signs Vital Sign Reading Time Taken Comments Blood Pressure 126/58 11/20/2023 9:40 AM EST Pulse 60 11/20/2023 9:40 AM EST Temperature 36.6 C (97.8 F) 05/04/2023 11:01 AM EDT Respiratory Rate 18 05/04/2023 11:0 1 AM EDT Oxygen Saturation - - Inhaled Oxygen Concentration - - Weight 97.4 kg (214 lb 12.8 oz) 11/20/2023 9:40 AM EST Height - - Body Mass Index - - Plan of Treatment Health Maintenance Due Date Last Done Comments Diabetes: Retinopathy Screening 1945 Diabetes: Urine Protein Screening 1954 Diabetes: Hemoglobin A1C 01/17/2024 024, 07/18/2023, 12/10/2020 Influenza Vaccine (Season Ended) 2025 07/21/2023, 08/02/2022, 11/22/2021, Additional history exists Pneumococcal Vaccine: 65+ Years Completed 3 Procedures Procedure Name Priority Date/Time Associated Diagnosis Comments HEMOGLOBIN A1C Routine 10/18/2023 12:26 PM EST from Last 3 Months or Most Recently Relevant to Health Maintenance Results * Hemoglobin A1c (10/18/2023 12:26 PM EST) HEMOGLOBIN A1C 7.0 Blood Venous blood specimen / Unknown Tosha Aguirre MD LAB BLOOD ORDERABLES Edited R esult - Final from Last 3 Months or Most Recently Relevant to Health Maintenance Insurance MEDICARE [facility] Advance Directives Documents on File Type Date Recorded 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
--- OUTSIDE RECORDS SUMMARY | 2025-03-27 13:08 | XMS_ITS | Encounter Summary ---
Author Organization [facility] Address [address] [place] [address] Care Team Providers Care Pasteuriser Operator Name Role Phone Tosha Aguirre MD Unavailable [phone] Unallocated, Noms Provider Primary Care Provi dinora Tato Cody MD Unavailable Encounter Details Date Type Department Care Team (Late st Contact Info) Description 01/17/2024 Abstract [facility] [address] [facility] [address] [place] [address] Pastor Etienne MD 112 [facility] [address] [place], [place] [id number] Social History Tobacco Use Types Packs/Day Years Used Date Smoking Tobacco: Never Passive Smoke Exposure: Never Smokeless Tobacco: Never Alcohol Use Standard [...] on file documented as of this encounter Visit Diagnoses Not on filedocumented in this encounter Care Teams Pasteuriser Operator Relationship Specialty Start Date End Date Tosha Aguirre MD PCP - ACO Reach 03/09/23 11/21/24 Unallocated, Noms MD [address]ores [address] [place] [address] PCP - General Family Medicine 01/04/24 Tato Cody MD 112 [facility] [address] [place] [id number] PCP - ACO Reach 11/22/24 documented as of this encounter
--- OUTSIDE RECORDS SUMMARY | 2025-03-27 13:08 | XMS_ITS | Encounter Summary ---
Author Organization [facility] Address [id number] [place] [address] Care Team Providers Care Pin Machine Operator Name Role Phone Tosha Aguirre MD Primary Care Provider [phone] Reason for Visit * Reason Onset Date Comments Appointment 03/30/2022 This filing writer spok e with Tayo' , Mary. She was unaware of him having an appointment with [facility]. She states that he has been seeing wound care in [place] and he had an appointment today. Mary was told to that she could call if our services are needed in the future. Encounter Details Date Type Department Care Team (Late st Contact Info) Description 03/30/2022 Telephone [facility] [address] [place] [id number] Kristin Brock CNA Appointment (This filing writer spoke with Tayo' , Mary. She was unaware of him having an appointment with [facility]. She states that he has been seeing wound care in [place] and he had an appointment today. Mary was told to that she could call if our services are needed in the future. ) Social History Tobacco Use Types Packs/Day Years [...] declined 03/23/2022 How often do you attend uatsdin or muslim serv ices? Patient declined 03/23/2022 Do you belong to any clubs o r organizations such as uatsdin groups, unions, fraternal or athletic groups, or [...] Answer Date Recorded Total Score 0 03/23/2022 [facility] - Occupational Stress [...] Recorded Do you need help finding a [facility] career center and/or a training program? No 03/23/2022 Purpose - Life Answer Date Recorded I have a purpose and direction in my life. Stron gly Agree 03/23/2022 Sex and Gender Information Value Date Recorded Sex Assigned at Not on file Legal Sex Male 2:36 PM EST Gender Identity Not on file Sexual Orientation Straight 03/23/2022 12 :10 AM EDT COVID-19 Exposure Response Date Recorded In the last month, have you been in contact with someone who was confirmed or suspected to have Coronavirus / COVID-19? Unable to assess 03/30/2022 11:45 AM EDT documented as of this encounter Miscellaneous Notes * Telephone Encounter - Kristin Brock - 03/30/2022 8:42 AM EDT documented in this encounter Plan of Treatment Not on file documented as of this encounter Goals Goal Patient Goal Type Associated Problems Recent Progress Patient-Stated? Author ECF return General Yes Cherelle Noonan LSW Note: Evaluation of progress towards goal: Per pt son Navarro plan is to return to [facility]. documented as of this encounter Visit Diagnoses Not on filedocumented in this encounter Additional Health Concerns Assessment Noted Time PHQ-9 Depression Total Score: 0 03/23/20 22 12:12 AM EDT documented as of this encounter Care Teams Pin Machine Operator Relationship Specialty Start Date End Date Tosha Aguirre MD [address] [place] [address] PCP - General Family Medicine 03/22/22 documented as of this encounter
--- OUTSIDE RECORDS SUMMARY | 2025-03-27 13:08 | XMS_ITS | Encounter Summary ---
Author Organization [facility] Address [address] [place] [address] Care Team Providers Care Medical Imaging Technologist Name Role Phone Tosha Aguirre MD Unavailable [phone] Tosha Aguirre MD Primary Care Provider [phone] Rosina Valdez RN Unavailable [phone] Dinora Stroud DISPATCHER RELAY Unavailable [phone] Unallocated, Noms Provider Primary Care Provi dinora Tato Cody MD Unavailable Encounter Details Date Type Department Care Team (Late st Contact Info) Description 09/25/2023 Orders Only [facility] [address] [place] [address] Tosha Aguirre MD Social History [...] Procedure Name Priority Date/Time Associated Diagnosis Comments LIPID PANEL Routine 09/24/2023 3:32 PM EST documented in this encounter Results * Lipid panel (09/24/2023 3:32 PM EST) CHOLESTEROL, TOTAL 106 LDL-C 48 HDL-C 32 TRIGLYCERIDES 133 VLDL CHOLESTEROL 27 CHOL/HDL RATIO 3 Blood Venous blood specimen / Unknown Tosha Aguirre MD LAB BLOOD ORDERABLES Edited R esult - Final documented in this encounter Visit Diagnoses Not on filedocumented in this encounter Care Teams Medical Imaging Technologist Relationship Specialty Start Date End Date Tosha Aguirre MD PCP - ACO Reach 03/09/23 11/21/24 Tosha Aguirre MD PCP - General Family Medicine 02/21/23 01/03/24 Unallocated, Noms Provider, [address] [place] [address] PCP - General Family Medicine 01/04/24 Tato Cody MD 112 [facility] [address] [place] [address] PCP - ACO Reach 11/22/24 Rosina Valdez, PRISCA [address] [place] [address] Registered Nurse Family Medicine 10/31/23 01/15/24 Dinora Stroud LSW Edge Stainer Machine Family Medicine 11/17/23 12/11/23 documented as of this encounter
== END 2025-03-27 13:06 | disposition home or self-care (01) ==
LOC: WC 13:05
PROVIDERS: PCP Family Medicine; Visit Provider Physician Assistant
DX: S80.812A Abrasion, left lower leg, initial encounter (principal)
CPT/HCPCS: G0463